=== PATIENT | male | born 1970 | race Caucasian/White ===

== ENCOUNTER 2016-07-10 16:33 | Inpatient (IN) | payer OTHER ==
[2016-07-10] MEDS ORDERED: SODIUM CHLORIDE 0.9% 1,000 ML IV STA (17:16)
[2016-07-10] MEDS ORDERED: THIAMINE 100 MG/ML 2 ML VIAL IVP STA (17:21)
--- NOTE | 2016-07-10 17:24 | ED ---
GI Bleed HPI - General Chief complaint: GI Bleed Stated complaint: GI bleed Time Seen by Provider: 07/10/16 17:06 Source: patient Mode of arrival: EMS Limitations: no limitations - History of Present Illness Initial comments: 46-year-old male transferred from [facility] for GI bleeding patient has a history of heavy alcohol use 2 pints of vodka a day 3 weeks ago told had liver disease. Apparently his hemoglobin dropped to 7 from about 11. Denies previous GI bleed and they transferred him to [facility] he is received 1 unit of blood at [facility] and 1 in transit his shaky has low-grade temperature no severe bodyaches or change in urine or his blood pressure has been stable. No here clear history of taking NSAIDs. - Related Data Home Medications Medication Instructions Recorded Confirmed Propranolol HCl 20 mg PO BID 06/30/15 07/10/16 Folic Acid 1 mg PO DAILY 09/12/15 07/10/16 Sucralfate [Carafate] 1 gm PO BID 09/12/15 07/10/16 ALPRAZolam [Xanax] 0.5 mg PO TID 07/10/16 07/10/16 Multivitamins, Thera [Multivitamin] 1 tab PO DAILY@1200 07/10/16 07/10/16 levETIRAcetam [Keppra] 1,000 mg PO DAILY 07/10/16 07/10/16 Previous Rx's Medication Instructions Recorded Omeprazole 40 mg PO AC-BRKFST #30 capsule. 09/14/15 Divalproex [Depakote] 500 mg PO QID #120 tablet. 01/05/16 Magnesium Chloride [Slow-Mag] 128 mg PO BID #120 tablet.er 01/05/16 Thiamine [Vitamin B-1] 100 mg PO DAILY@1200 #30 tab 01/05/16 Allergies Allergy/AdvReac Type Severity Reaction Status Date / Time No Known Allergies Allergy Verified 07/10/16 17:05 Review of Systems ROS Statement: Those systems with pertinent positive or pertinent negative responses have been documented in the HPI. ROS Other: All systems not noted in ROS Statement are negative. Constitutional: Denies: fever, chills ENT: Denies: ear pain, throat pain Respiratory: Reports: cough Cardiovascular: Denies: chest pain Endocrine: Denies: fatigue Gastrointestinal: Reports: vomiting, hematemesis, melena. Denies: abdominal pain Genitourinary: Reports: frequency Skin: Reports: rash Neurological: Reports: headache Psychiatric: Reports: anxiety. Denies: depression Hematological/Lymphatic: Reports: easy bleeding, easy bruising Past Medical History Past Medical History: GERD/Reflux, Hypertension, Liver Disease, Memory Impairment, Seizure Disorder Additional Past Medical History / Comment(s): ULCERS/GASTRITIS, ETOH RELATED DEMENTIA, PANCREATITIS. patient states he has to crush all pills because of a "small esophogus" History of Any Multi-Drug Resistant Organisms: C-DIFF Date of last positivie culture/infection: 07/02/2015 MDRO Source:: stool Past Surgical History: Adenoidectomy, Tonsillectomy Past Anesthesia/Blood Transfusion Reactions: No Reported Reaction Past Psychological History: Bipolar Smoking Status: Never smoker Past Alcohol Use History: Daily, Heavy Additional Past Alcohol Use History / Comment(s): Pt states he drinks a pint of liquor daily Past Drug Use History: None Reported - Past Family History Father Family Medical History: Diabetes Mellitus Mother Family Medical History: Diabetes Mellitus, Deep Vein Thrombosis (DVT), Hypertension Sister(s) Family Medical History: Diabetes Mellitus Brother(s) Family Medical History: Diabetes Mellitus General Exam Limitations: no limitations General appearance: alert, in no apparent distress Head exam: Present: atraumatic Eye exam: Present: PERRL, EOMI ENT exam: Present: normal oropharynx, mucous membranes moist Neck exam: Absent: tenderness Respiratory exam: Present: normal lung sounds bilaterally. Absent: respiratory distress Cardiovascular Exam: Present: tachycardia, normal heart sounds GI/Abdominal exam: Present: soft. Absent: distended, tenderness, guarding, rebound Neurological exam: Present: alert, CN II-XII intact Psychiatric exam: Present: anxious Skin exam: Present: warm Course Vital Signs 07/10/16 07/10/16 07/10/16 17:00 17:44 18:46 Temperature 100.3 F H 100.5 F H Pulse Rate 141 H 133 H 129 H Respiratory 22 20 22 Rate Blood Pressure 161/81 152/78 147/74 O2 Sat by Pulse 100 98 100 Oximetry Medical Decision Making - Medical Decision Making Spoke with Dr. Dr. Julisa Albarado, Dr. Fine, and Dr. Marie Muñoz, admit to ICU - EKG Data -: EKG Interpreted by Me 07/10/16 17:25 EKG 07/10/2016 1642 ventricular rate 1 39 bpm, OH interval 126 ms, QRS duration 78 ms QT interval 312 ms sinus tachycardia with fusion complexes nonspecific ST- T changes Critical Care Time Critical Care Time: Yes (45 minutes) Disposition Clinical Impression: Gastrointestinal hemorrhage, Alcohol withdrawal Disposition: ADMITTED IP TO THIS HOSP Condition: Critical Time of Disposition: 18:52
[2016-07-10] MEDS ORDERED: LORazepam 2 MG/ML SYRINGE IV PRN ×2 (17:25)
[2016-07-10] MEDS ORDERED: PANTOPRAZOLE 40 MG/10 ML VIAL IVP STA (17:26)
--- NOTE | 2016-07-10 18:13 | P.GSCN ---
History of Present Illness Consult date: 07/10/16 Reason for Consult: GI bleed History of present illness: Patient is a 46-year-old white male who was transferred here from [place]. He has a history of heavy alcohol use drinking several pints of liquor over the past several days. He began vomiting blood and was admitted to [facility]. Hemoglobin dropped from 11-7 recently he underwent a transfusion at [place] and another in transit here. Patient denies blood per rectum. Patient denies abdominal pain. Patient states he has not had anything like this in the past. Patient was told several weeks ago he had liver disease. Review of Systems - Constitutional Reports as per HPI - Cardiovascular Reports as per HPI - Respiratory Reports as per HPI - Gastrointestinal Gastrointestinal Comment(s): Heavy alcohol use, history of liver disease Reports as per HPI, Reports nausea, Reports vomiting - Musculoskeletal Reports as per HPI Past Medical History Past Medical History: GERD/Reflux, Hypertension, Liver Disease, Memory Impairment, Seizure Disorder Additional Past Medical History / Comment(s): ULCERS/GASTRITIS, ETOH RELATED DEMENTIA, PANCREATITIS. patient states he has to crush all pills because of a "small esophogus" History of Any Multi-Drug Resistant Organisms: C-DIFF Year Discovered:: 07/02/2015 MDRO Source:: stool Past Surgical History: Adenoidectomy, Tonsillectomy Past Anesthesia/Blood Transfusion Reactions: No Reported Reaction Past Psychological History: Bipolar Smoking Status: Never smoker Past Alcohol Use History: Daily, Heavy Additional Past Alcohol Use History / Comment(s): Pt states he drinks a pint of liquor daily Past Drug Use History: None Reported - Past Family History Father Family Medical History: Diabetes Mellitus Mother Family Medical History: Diabetes Mellitus, Deep Vein Thrombosis (DVT), Hypertension Sister(s) Family Medical History: Diabetes Mellitus Brother(s) Family Medical History: Diabetes Mellitus Medications and Allergies Home Medications Medication Instructions Recorded Confirmed Type Propranolol HCl 20 mg PO BID 06/30/15 07/10/16 History Folic Acid 1 mg PO DAILY 09/12/15 07/10/16 History Sucralfate [Carafate] 1 gm PO BID 09/12/15 07/10/16 History ALPRAZolam [Xanax] 0.5 mg PO TID 07/10/16 07/10/16 History Multivitamins, Thera [Multivitamin] 1 tab PO DAILY@1200 07/10/16 07/10/16 History levETIRAcetam [Keppra] 1,000 mg PO DAILY 07/10/16 07/10/16 History Allergies Allergy/AdvReac Type Severity Reaction Status Date / Time No Known Allergies Allergy Verified 07/10/16 17:05 Surgical - Exam Vital Signs Temp Pulse Resp BP Pulse Ox 100.3 F H 141 H 22 161/81 100 07/10/16 17:00 07/10/16 17:00 07/10/16 17:00 07/10/16 17:00 07/10/16 17:00 - General well developed, moderate distress - Eyes normal ocular movement - ENT Dry mucosa normal pinna, normal nares - Neck no masses, trachea midline, no lymphadectomy - Respiratory normal expansion, normal respiratory effort, clear to auscultation - Cardiovascular Rhythm: regular Heart Sounds: normal: S1, S2 - Abdomen Abdomen: soft, non tender - Rectum Rectum: normal sphincter tone, no tenderness, no bleeding - Integumentary no rash - Psychiatric oriented to person, oriented to place Assessment and Plan Plan: Impression/plan: 1. 46-year-old alcoholic patient with GI bleed 2. History of anxiety 3. Anemia related to GI bleed Plan: 1. GI consultation probable esophageal varices 2. Admission to intensive care unit 3. This time patient does not have an acute surgical abdomen 4. Serial CBCs
[2016-07-10] MEDS ORDERED: ACETAMINOPHEN IV (For NPO) 1,000 MG in EMPTY BAG 1 BAG IVPB STA (18:43)
[2016-07-10] MEDS ORDERED: NALOXONE 0.4 MG/ML 1 ML VIAL IV PRN (18:54)
[2016-07-10 19:22] LABS: Anisocytosis Slight; Basophils % (A) 0 %; CH 29.1; CHCM 31.7; Eosinophils % (A) 0 %; HCT 30.5 % (39.0-53.0); HDW 3.88; HGB 9.6 gm/dL (13.0-17.5); Hypochromasia Marked; Luc # (Auto) 0.17; Luc % (Auto) 2; Lymphocytes # (A) 0.6 k/uL (1.0-4.8); Lymphocytes % (A) 7 %; MCHC 31.5 g/dL (31.0-37.0); MCV 91.9 fL (80.0-100.0); Mean Platelet Volume 7.6; Monocytes # (A) 0.4 k/uL (0-1.0); Monocytes % (A) 5 %; Neutrophils # (A) 7.4 k/uL (1.3-7.7); Neutrophils % (A) 86 %; Poikilocytosis Slight; RBC 3.32 m/uL (4.30-5.90); RDW 18.7 % (11.5-15.5); WBC 8.5 k/uL (3.8-10.6); WBC (Perox) 9.32
[2016-07-10 19:31] LABS: ALT 27 U/L (21-72); AST 85 U/L (17-59); Alkaline Phosphatase 168 U/L (38-126); Anion Gap 16 mmol/L; Blood Urea Nitrogen 18 mg/dL (9-20); Calcium 6.8 mg/dL (8.4-10.2); Carbon Dioxide 21 mmol/L (22-30); Chloride 107 mmol/L (98-107); Creatine Kinase 1057 U/L (55-170); Glucose 95 mg/dL (74-99); Magnesium 1.7 mg/dL (1.6-2.3); Non-African American GFR(MDRD) 50 (>60 ml/min/1.73 sqM); Potassium 4.3 mmol/L (3.5-5.1); Sodium 144 mmol/L (137-145); Total Bilirubin 1.1 mg/dL (0.2-1.3); Total Protein 5.6 g/dL (6.3-8.2)
[2016-07-10 19:33] LABS: INR 1.2 (<1.1); Partial Thromboplastin Time 26.2 sec (22.0-30.0); Prothrombin Time 11.8 sec (9.0-12.0)
[2016-07-10 19:43] LABS: Troponin I <0.012 ng/mL (0.000-0.034)
[2016-07-10] MEDS: SODIUM CHLORIDE 0.9% 1,000 ML IV SCH (20:30)
[2016-07-10 20:32] LABS: Glucose,Whole Blood 84 mg/dL (75-99)
--- NOTE | 2016-07-10 21:09 | XR ---
EXAMINATION TYPE: XR chest 1V DATE OF EXAM: 07/10/2016 9:05 PM COMPARISON: 10/13/2015 HISTORY: 46-year-old male with aspiration TECHNIQUE: Single frontal view of the chest is obtained. FINDINGS: Heart is normal size. Aorta and pulmonary vasculature within normal limits. Left subclavian CVC tip i n the upper right atrium. No consolidation or pleural effusion. IMPRESSION: No acute cardiopulmonary process.
[2016-07-10] MEDS: levETIRAcetam IV 500 MG in SODIUM CHLORIDE 0.9% 100 ML IVPB SCH (21:17)
[2016-07-10] MEDS ORDERED: Magnesium Replacement Protocol 1 EACH MISC MISCELLANE PRN (21:55)
[2016-07-10] MEDS: METOPROLOL TARTRATE 25 MG TAB PO SCH (22:18)
[2016-07-10] MEDS: MAGNESIUM SULFATE-D5W PMX 1 GM in DEXTROSE/WATER 1 100ML.BAG IVPB SCH ×2 (22:19→23:49)
[2016-07-10] MEDS: DIAZEPAM 5 MG TAB PO SCH (22:25)
[2016-07-10 22:41] VITALS: BMI 21.9
[2016-07-11 03:58] LABS: ALT 32 U/L (21-72); AST 71 U/L (17-59); Alkaline Phosphatase 168 U/L (38-126); Anion Gap 10 mmol/L; Blood Urea Nitrogen 15 mg/dL (9-20); Calcium 6.9 mg/dL (8.4-10.2); Carbon Dioxide 26 mmol/L (22-30); Chloride 107 mmol/L (98-107); Creatine Kinase 822 U/L (55-170); Glucose 87 mg/dL (74-99); Magnesium 2.4 mg/dL (1.6-2.3); Non-African American GFR(MDRD) >60 (>60 ml/min/1.73 sqM); Phosphorous 2.6 mg/dL (2.5-4.5); Potassium 4.2 mmol/L (3.5-5.1); Sodium 143 mmol/L (137-145); Total Bilirubin 0.8 mg/dL (0.2-1.3); Total Protein 5.5 g/dL (6.3-8.2)
[2016-07-11] MEDS: SODIUM CHLORIDE 0.9% 1,000 ML IV SCH ×3 (04:12→19:38)
[2016-07-11 04:43] LABS: Anisocytosis Slight; Basophils % (A) 0 %; CH 29.2; CHCM 32.1; Eosinophils # (A) 0.1 k/uL (0-0.7); Eosinophils % (A) 1 %; HCT 29.9 % (39.0-53.0); HDW 4.13; HGB 9.4 gm/dL (13.0-17.5); Hypochromasia Moderate; Luc # (Auto) 0.16; Luc % (Auto) 2; Lymphocytes # (A) 0.9 k/uL (1.0-4.8); Lymphocytes % (A) 14 %; MCH 28.6 pg (25.0-35.0); MCHC 31.3 g/dL (31.0-37.0); MCV 91.4 fL (80.0-100.0); Mean Platelet Volume 9.1; Monocytes # (A) 0.3 k/uL (0-1.0); Monocytes % (A) 4 %; Neutrophils # (A) 5.5 k/uL (1.3-7.7); Neutrophils % (A) 79 %; Poikilocytosis Moderate; RBC 3.27 m/uL (4.30-5.90); RDW 19.2 % (11.5-15.5); WBC 6.9 k/uL (3.8-10.6); WBC (Perox) 6.57
[2016-07-11] MEDS ORDERED: SUCRALFATE 1 GM TAB PO SCH (07:30)
[2016-07-11] MEDS: DIAZEPAM 5 MG TAB PO SCH ×3 (08:23→21:26)
[2016-07-11] MEDS: levETIRAcetam IV 500 MG in SODIUM CHLORIDE 0.9% 100 ML IVPB SCH ×2 (08:23→21:26)
[2016-07-11] MEDS: PANTOPRAZOLE 40 MG/10 ML VIAL IV SCH (08:23)
[2016-07-11] MEDS: METOPROLOL TARTRATE 25 MG TAB PO SCH (08:23)
[2016-07-11] MEDS: THIAMINE 100 MG/ML 2 ML VIAL IVP SCH (08:23)
[2016-07-11] MEDS: DIVALPROEX 500 MG TABLET.DR PO SCH ×4 (08:23→21:26)
--- NOTE | 2016-07-11 08:47 | P.PN ---
Subjective Patient is a 46-year-old alcoholic admitted with upper GI bleed. He has had no further vomiting since admission. Hemoglobin is stable at 9.4. Objective - Vital Signs Vital signs: Vital Signs Temp 98.2 F 07/11/16 04:00 Pulse 96 07/11/16 08:00 Resp 20 07/11/16 08:00 BP 142/74 07/11/16 08:00 Pulse Ox 99 07/11/16 08:00 Intake & Output 07/10/16 07/11/16 07/11/16 18:59 06:59 18:59 Intake Total 1175 350 Output Total 610 180 Balance 565 170 Weight 61.8 kg Intake: Intake, IV Titration 1175 350 Amount Magnesium Sulfate-D5w Pmx 200 1 gm In Dextrose/Water 1 100ml.bag @ 100 mls/hr IVPB Q1H RADHA Rx#: [id number] Sodium Chloride 0.9% 1, 875 250 000 ml @ 125 mls/hr IV . Q8H RADHA Rx#:[id number] levETIRAcetam IV 500 mg 100 100 In Sodium Chloride 0.9% 100 ml @ 400 mls/hr IVPB BID RADHA Rx#:[id number] Output: Urine 610 180 Other: Voiding Method Urinal - Constitutional General appearance: Present: average body habitus, disheveled - Respiratory Details: Decreased breath sounds at the bases - Cardiovascular Rhythm: regular Heart sounds: normal: S1, S2 - Gastrointestinal Gastrointestinal Comment(s): Mild tender midepigastric and right upper quadrant areas General gastrointestinal: Present: normal bowel sounds, soft - Labs CBC & Chem 7: 07/11/16 04:30 07/11/16 03:35 Labs: Abnormal Lab Results - Last 24 Hours (Table) 07/10/16 07/10/16 07/10/16 Range/Units 19:05 19:05 19:05 RBC 3.32 L (4.30-5.90) m/uL Hgb 9.6 L (13.0-17.5) gm/dL Hct 30.5 L (39.0-53.0) % RDW 18.7 H (11.5-15.5) % Plt Count 93 L (150-450) k/uL Lymphocytes # 0.6 L (1.0-4.8) k/uL Carbon Dioxide 21 L (22-30) mmol/L Creatinine 1.50 H (0.66-1.25) mg/dL Calcium 6.8 L (8.4-10.2) mg/dL Magnesium (1.6-2.3) mg/dL AST 85 H (17-59) U/L Alkaline Phosphatase 168 H (38-126) U/L Creatine Kinase (55-170) U/L Total Creatine Kinase 1057 H (55-170) U/L Total Protein 5.6 L (6.3-8.2) g/dL Albumin 3.0 L (3.5-5.0) g/dL 07/11/16 07/11/16 Range/Units 03:35 04:30 RBC 3.27 L (4.30-5.90) m/uL Hgb 9.4 L (13.0-17.5) gm/dL Hct 29.9 L (39.0-53.0) % RDW 19.2 H (11.5-15.5) % Plt Count 83 L (150-450) k/uL Lymphocytes # 0.9 L (1.0-4.8) k/uL Carbon Dioxide (22-30) mmol/L Creatinine (0.66-1.25) mg/dL Calcium 6.9 L (8.4-10.2) mg/dL Magnesium 2.4 H (1.6-2.3) mg/dL AST 71 H (17-59) U/L Alkaline Phosphatase 168 H (38-126) U/L Creatine Kinase 822 H (55-170) U/L Total Creatine Kinase (55-170) U/L Total Protein 5.5 L (6.3-8.2) g/dL Albumin 2.8 L (3.5-5.0) g/dL Assessment and Plan Plan: Impression/plan: 1. 46-year-old alcoholic patient with GI bleed 2. History of anxiety 3. Anemia related to GI bleed Plan: 1. GI consultation probable esophageal varices 2. Admission to intensive care unit 3. This time patient does not have an acute surgical abdomen 4. Serial CBCs 5. Possible EGD as per GI 6. At this time the patient does not have an acute surgical problem
--- NOTE | 2016-07-11 10:55 | CONS ---
DATE OF CONSULTATION: REASON FOR CONSULTATION: Acute upper gastrointestinal bleed. Patient is a 46-year-old white male transferred from [facility] with a history of heavy alcoholism, transferred from [facility] because of acute upper gastrointestinal bleed. Apparently he had multiple episodes of coffee-ground emesis at home at least five to 6 times and then went to the emergency room at [facility]. He was noted to have a hemoglobin of 7.4. He was transfused 1 unit and transferred to ICU at [facility]. He received another unit of blood and this morning hemoglobin is 9.1 g/dL. Since being in the hospital, he did not have any further episodes of bleeding. He does complain of some abdominal pain. He reports no nausea, vomiting. He did have an upper endoscopy as well as colonoscopy by me in June 2015 that revealed distal esophageal stricture, upper endoscopy revealed distal esophageal stricture with severe reflux esophagitis and colonoscopy was within normal limits. Patient says that he has been taking Prilosec at home on a regular basis. He denies any heartburn. His past medical history significant for heavy alcohol abuse, history of seizure disorder, anxiety, depression, alcoholism, heavy alcohol abuse. Medications at home include: 1. Vitamin B1. 2. Slow Mag. 3. Depakote. 4. Prilosec. 5. Carafate. 6. Xanax. 7. Multivitamin. 8. Keppra. 9. Propranolol. 10. Folic acid. PAST SURGICAL HISTORY: EGD, colonoscopy in June 2015, history of tonsillectomy and adenoidectomy. ALLERGIES: None. SOCIAL HISTORY: Heavy alcohol use. He drinks about a pint a day for the last 30 years. FAMILY HISTORY: Father has diabetes mellitus, mother has diabetes mellitus and DVT. REVIEW OF SYSTEMS: CARDIOPULMONARY: No chest pain or shortness of breath. GENITOURINARY: No dysuria or hematuria. MUSCULOSKELETAL: Unremarkable. SKIN: Unremarkable. ENDOCRINE: Unremarkable. PSYCHIATRIC: History of anxiety, depression. NEUROLOGY: Unremarkable. ENT: Vision unremarkable. CONSTITUTIONAL: No recent weight loss. No fevers, chills or night sweats. On physical examination, he appears comfortable in no apparent distress. Vitals as are stable. Blood pressure is 146/86, pulse rate 99, temperature 98. HEENT: Unremarkable. Conjunctivae pink. Sclerae anicteric. Oral cavity, no lesions. NECK: No JVD or lymph node enlargement. Chest was clear to auscultation. HEART: Regular rate and rhythm. ABDOMEN: Soft. Bowel sounds are positive. No organomegaly. EXTREMITIES: No pedal edema. SKIN: No rashes. NEURO: Alert and oriented x3. No focal deficits. Labs done at the time of this admission to hospital, hemoglobin was initially was 7.4 and subsequently after 2 units of blood it is 9.4 this morning, BUN is 26, creatinine 10, alkaline phosphatase is 168, AST 71. ALT 32, T-bili 0.8. IMPRESSION: 1. Acute upper gastrointestinal bleeding. Last EGD and colonoscopy in June 2015 showed severe reflux esophagitis. The patient since has been on omeprazole 20 mg twice daily, now presents with recurrent upper gastrointestinal bleed. 2. History of heavy alcohol abuse currently drinking a pint a day. 3. Alcoholic liver disease with underlying cirrhosis of the liver. 4. Thrombocytopenia secondary to underlying cirrhosis of the liver. RECOMMENDATIONS: 1. Continue Protonix 40 mg twice daily. 2. Start on clear liquid diet. 3. Will proceed with an upper endoscopy tomorrow. Discussed with the patient the risks, benefits and complications of procedure and he is agreeable to it. Thank you for this consultation.
[2016-07-11 12:22] LABS: Amylase 58 U/L (30-110)
[2016-07-11] MEDS: MORPHINE SULFATE 2 MG/ML SYRINGE IVP PRN (12:29)
[2016-07-11] MEDS: LORazepam 2 MG/ML SYRINGE IV PRN ×2 (12:29→21:25)
--- NOTE | 2016-07-11 17:26 | HP ---
DATE OF ADMISSION: 07/10/2016 PRESENTING COMPLAINT: GI bleed. HISTORY OF PRESENTING COMPLAINT: A 46-year-old patient who follows with Dr. Perez transferred from [facility] [place]. Patient has history of excessive alcohol intake including at least a pint of whiskey a day. Lives with his parents, unemployed. Patient presented with repeated bouts of coffee-ground emesis. The patient has dropped his hemoglobin had [place] and required a unit of blood there and got a second unit of blood here. Patient has known alcoholic hepatitis. Patient is tired. Also has history of bipolar, not employed. No further bleeding since being admitted to the ICU. REVIEW OF SYSTEMS: CONSTITUTIONAL: Tired. HEENT: None. RESPIRATORY: None. CARDIOVASCULAR: None. GASTROINTESTINAL: Abdominal pain, coffee-ground emesis. GENITOURINARY: None. MUSCULOSKELETAL: None. DERMATOLOGIC: None. HEMATOLOGIC: None. LYMPHATICS: None. PSYCHIATRY: Anxious. NEUROLOGICAL: None. Past history of esophageal stricture, severe esophagitis, alcoholic hepatitis, bipolar. PAST SURGICAL HISTORY: Adenoidectomy, tonsillectomy. SOCIAL HISTORY: He drinks a pint of liquor daily. No smoking. Lives with his parents. Not employed. FAMILY HISTORY: Diabetes. HOME MEDICATIONS: 1. Keppra 1000 mg p.o. daily. 2. Thiamine 100 mg p.o. daily, 3. Carafate 1 gram p.o. b.i.d. 4. Propranolol 20 mg p.o. b.i.d. 5. Omeprazole 40 mg with breakfast. 6. Multivitamin 1 tablet p.o. daily. 7. Slow-Mag 128 mg p.o. b.i.d. 8. Folic acid 1 mg p.o. daily. 9. Depakote 500 mg p.o. q.i.d. 10. Xanax 0.5 p.o. t.i.d. ALLERGIES: None. On examination vital signs on presentation: Temperature 100.5, pulse 133, respirations 20, blood pressure 152/78, pulse ox 98% on 2 liters. GENERAL APPEARANCE: Average build, sitting in bed, tired appearing. EYES: Pupils equal. Conjunctivae normal. HEENT: Oral cavity normal. NECK: JVD not raised. Mass not palpable. RESPIRATORY: Effort normal. LUNGS: Clear. CARDIOVASCULAR: First and second sounds normal. No edema. ABDOMEN: Soft, nontender. Liver and spleen not palpable. Mild epigastric tenderness. No guarding or rigidity. LYMPHATIC: No lymph nodes palpable in the neck or axillae. PSYCHIATRY: Somewhat tired appearing. Mood and affect slightly low. INVESTIGATIONS: White count 8.5, hemoglobin 9.6; repeat 9.4, platelets 93, potassium 4.3, BUN 1.5; repeat is 1.1. AST 85, ALT 27. CPK 1057. ASSESSMENT: 1. Acute gastrointestinal bleed in a patient with chronic alcoholism likely a bleed from peptic ulcer. 2. Acute renal failure, probably prerenal with creatinine 1.5 on presentation, did drop down to 1.10 with dehydration. 3. Alcoholic hepatitis with elevated AST. 4. Thrombocytopenia from chronic alcoholism. 5. Acute blood loss anemia from GI bleed. 6. Chronic alcohol dependence. 7. Acute rhabdomyolysis. PLAN: For DT prophylaxis, will put the patient on Valium 2.5/3 times a day. Patient getting IV fluids and already received 2 units of blood. Patient is put on IV PPIs and other home medications are resumed. GI and critical care was consulted. Patient counseled against alcohol. Watch for DTs.
--- NOTE | 2016-07-11 18:47 | P.CNPUL ---
History of Present Illness Consult date: 07/11/16 Chief complaint: Abdominal pain, upper GI bleed History of present illness: 46-year-old male patient, chronically alcoholic, who has had previous episodes of upper GI bleed and a colonoscopy that was done approximately a year ago had shown severe reflexes situated and a stricture in the distal esophagus. The patient has had also previous colonoscopy approximately year ago that was essentially within normal limits. The patient came into the hospital yesterday because of several episodes of coffee-ground emesis. He was initially taken to [facility] and following that he was noted to have a hemoglobin of 7.4 given a unit of packed RBC and he was brought into [place]. Current hemoglobin is at 9.1. The patient denies having any melanotic stool. He has some chronic abdominal pain. No nausea. No vomiting. No signs of the game treatments. Hemodynamically stable at this point. Review of Systems Review of system was done and the positive findings are almost above in history of present illness Past Medical History Past Medical History: GERD/Reflux, Hypertension, Liver Disease, Memory Impairment, Seizure Disorder Additional Past Medical History / Comment(s): Alcoholism, alcoholic pancreatitis , alcoholic seizures, as esophageal stricture and reflux esophagitis, alcoholic dementia, depression History of Any Multi-Drug Resistant Organisms: C-DIFF Date of last positivie culture/infection: 07/02/2015 MDRO Source:: stool Past Surgical History: Adenoidectomy, Tonsillectomy Past Anesthesia/Blood Transfusion Reactions: No Reported Reaction Past Psychological History: Bipolar Smoking Status: Unknown if ever smoked Past Alcohol Use History: Daily, Heavy Additional Past Alcohol Use History / Comment(s): Pt states he drinks a pint of liquor daily Past Drug Use History: None Reported - Past Family History Father Family Medical History: Diabetes Mellitus Mother Family Medical History: Diabetes Mellitus, Deep Vein Thrombosis (DVT), Hypertension Sister(s) Family Medical History: Diabetes Mellitus Brother(s) Family Medical History: Diabetes Mellitus Medications and Allergies Home Medications Medication Instructions Recorded Confirmed Type Propranolol HCl 20 mg PO BID 06/30/15 07/10/16 History Folic Acid 1 mg PO DAILY 09/12/15 07/10/16 History Sucralfate [Carafate] 1 gm PO BID 09/12/15 07/10/16 History ALPRAZolam [Xanax] 0.5 mg PO TID 07/10/16 07/10/16 History Multivitamins, Thera [Multivitamin] 1 tab PO DAILY@1200 07/10/16 07/10/16 History levETIRAcetam [Keppra] 1,000 mg PO DAILY 07/10/16 07/10/16 History Allergies Allergy/AdvReac Type Severity Reaction Status Date / Time No Known Allergies Allergy Verified 07/10/16 17:05 Physical Exam Vitals: Vital Signs Temp Pulse Pulse Pulse Resp BP BP 07/11/16 16:47 96.4 F L 95 21 120/78 07/11/16 16:00 94 23 139/85 07/11/16 15:00 95 25 H 146/81 07/11/16 14:00 94 22 154/88 07/11/16 13:00 94 21 146/83 07/11/16 12:30 92 15 146/83 07/11/16 12:00 98 F 83 22 146/83 07/11/16 11:00 83 20 140/87 07/11/16 10:00 79 22 124/82 07/11/16 09:00 100 20 143/88 07/11/16 08:30 103 H 17 154/81 07/11/16 08:00 96 20 142/74 07/11/16 07:00 99 9 L 146/85 07/11/16 06:30 89 18 137/89 07/11/16 06:00 92 16 148/91 07/11/16 05:30 85 18 151/76 07/11/16 05:00 88 13 142/78 07/11/16 04:30 96 15 153/90 07/11/16 04:00 98.2 F 96 12 143/80 07/11/16 03:30 91 21 128/76 07/11/16 03:00 90 26 H 148/87 07/11/16 02:30 95 15 138/73 07/11/16 02:00 90 22 138/74 07/11/16 01:30 88 19 127/76 07/11/16 01:00 89 13 125/79 07/11/16 00:30 88 27 H 129/83 07/11/16 00:00 99.4 F 93 9 L 126/77 07/10/16 23:41 89 20 91/67 07/10/16 23:30 92 21 119/81 07/10/16 23:00 104 H 19 124/72 07/10/16 22:30 113 H 22 149/76 07/10/16 22:00 99.9 F H 112 H 109 H 22 145/64 149/76 07/10/16 21:30 105 H 17 108/75 07/10/16 21:00 122 H 22 145/78 07/10/16 20:45 122 H 20 165/82 07/10/16 20:30 127 H 19 148/76 07/10/16 20:18 143 H 22 07/10/16 20:06 99.1 F 126 H 20 139/68 Pulse Ox 07/11/16 16:47 99 07/11/16 16:00 98 07/11/16 15:00 97 07/11/16 14:00 98 07/11/16 13:00 96 07/11/16 12:30 98 07/11/16 12:00 07/11/16 11:00 96 07/11/16 10:00 100 07/11/16 09:00 97 07/11/16 08:30 96 07/11/16 08:00 99 07/11/16 07:00 98 07/11/16 06:30 99 07/11/16 06:00 100 07/11/16 05:30 100 07/11/16 05:00 07/11/16 04:30 97 07/11/16 04:00 07/11/16 03:30 100 07/11/16 03:00 100 07/11/16 02:30 99 07/11/16 02:00 100 07/11/16 01:30 100 07/11/16 01:00 100 07/11/16 00:30 100 07/11/16 00:00 100 07/10/16 23:41 07/10/16 23:30 100 07/10/16 23:00 100 07/10/16 22:30 100 07/10/16 22:00 98 07/10/16 21:30 07/10/16 21:00 97 07/10/16 20:45 100 07/10/16 20:30 99 07/10/16 20:18 07/10/16 20:06 99 Intake and Output 07/11/16 07/11/16 07/11/16 06:59 14:59 22:59 Intake Total 950 1425 250 Output Total 400 505 Balance 550 920 250 Intake: Intake, IV Titration 950 1100 250 Amount Magnesium Sulfate-D5w Pmx 200 1 gm In Dextrose/Water 1 100ml.bag @ 100 mls/hr IVPB Q1H [facility] Rx#: [id number] Sodium Chloride 0.9% 1, 750 1000 250 000 ml @ 125 mls/hr IV . Q8H [facility] Rx#:[id number] levETIRAcetam IV 500 mg 100 In Sodium Chloride 0.9% 100 ml @ 400 mls/hr IVPB BID [facility] Rx#:[id number] Oral 325 Output: Urine 400 505 Other: Voiding Method Urinal Urinal Weight 61.8 kg Head exam was generally normal. There was no scleral icterus or corneal arcus. Mucous membranes were moist.Neck was supple and without jugular venous distension, thyromegaly, or carotid bruits. Carotids were easily palpable bilaterally. There was no adenopathy.Lungs were clear to auscultation and percussion, and with normal diaphragmatic excursion. No wheezes or rales were noted. Cardiac exam revealed the PMI to be normally situated and sized. The rhythm was regular and no extrasystoles were noted during several minutes of auscultation. The first and second heart sounds were normal and physiologic splitting of the second heart sound was noted. There were no murmurs, rubs, clicks, or gallops. Abdomen is slightly tender in the epigastric area. No rebound tenderness. No guarding. No ascites.Examination of the extremities revealed easily palpable radial, femoral and pedal pulses. There was no cyanosis , clubbing or edema. Results - Laboratory Findings CBC and BMP: 07/11/16 04:30 07/11/16 03:35 PT/INR, D-dimer PT 11.8 sec (9.0-12.0) 07/10/16 19:05 INR 1.2 (<1.1) 07/10/16 19:05 Abnormal lab findings: Abnormal Labs 07/10/16 07/10/16 07/10/16 19:05 19:05 19:05 RBC 3.32 L Hgb 9.6 L Hct 30.5 L RDW 18.7 H Plt Count 93 L Lymphocytes # 0.6 L Carbon Dioxide 21 L Creatinine 1.50 H Calcium 6.8 L Magnesium AST 85 H Alkaline Phosphatase 168 H Creatine Kinase Total Creatine Kinase 1057 H Total Protein 5.6 L Albumin 3.0 L 07/11/16 07/11/16 03:35 04:30 RBC 3.27 L Hgb 9.4 L Hct 29.9 L RDW 19.2 H Plt Count 83 L Lymphocytes # 0.9 L Carbon Dioxide Creatinine Calcium 6.9 L Magnesium 2.4 H AST 71 H Alkaline Phosphatase 168 H Creatine Kinase 822 H Total Creatine Kinase Total Protein 5.5 L Albumin 2.8 L - Diagnostic Findings Chest x-ray: image reviewed Assessment and Plan Plan: Assessment 1 upper GI bleed, rule out secondary to reflux esophagitis, rule out alcoholic gastritis. Doubt esophageal variceal bleeding at this point 2 chronic alcoholism 3 alcoholic pancreatitis. The patient is currently experiencing abdominal pain and amylase lipase need to be checked 4 alcoholic seizures 5 alcoholic thrombocytopenia 6 depression 7 anemia, probably secondary to GI bleeding. Hemoglobin is at 9.4 8 mild rhabdomyolysis Plan Continue IV fluids. IV Protonix 40 mg every 12 hours. Start the patient on some clear liquid diet. Watch for any signs of delirium tremens. Thiamine and folate. Check amylase and lipase. Monitor the CPK values. GI consultation. We'll continue to follow.
[2016-07-11] MEDS: PROPRANOLOL 20 MG TAB PO SCH (21:26)
[2016-07-11 22:34] LABS: Anisocytosis Slight; CHCM 31.2; HCT 30.2 % (39.0-53.0); HDW 4.05; HGB 9.5 gm/dL (13.0-17.5); Hypochromasia Marked; MCH 29.2 pg (25.0-35.0); MCHC 31.3 g/dL (31.0-37.0); MCV 93.2 fL (80.0-100.0); Mean Platelet Volume 8.8; Poikilocytosis Moderate; RBC 3.24 m/uL (4.30-5.90); RDW 18.9 % (11.5-15.5); WBC 6.4 k/uL (3.8-10.6)
[2016-07-12] MEDS: MORPHINE SULFATE 2 MG/ML SYRINGE IVP PRN (02:41)
[2016-07-12] MEDS: SODIUM CHLORIDE 0.9% 1,000 ML IV SCH ×3 (02:45→11:48)
[2016-07-12] MEDS: LORazepam 2 MG/ML SYRINGE IV PRN (03:46)
[2016-07-12] MEDS: PROPRANOLOL 20 MG TAB PO SCH ×2 (08:38→21:32)
[2016-07-12] MEDS: DIAZEPAM 5 MG TAB PO SCH ×3 (08:38→21:32)
[2016-07-12] MEDS: DIVALPROEX 500 MG TABLET.DR PO SCH ×4 (08:38→21:32)
[2016-07-12] MEDS: THIAMINE 100 MG/ML 2 ML VIAL IVP SCH (08:56)
[2016-07-12] MEDS: PANTOPRAZOLE 40 MG/10 ML VIAL IV SCH (08:56)
[2016-07-12] MEDS: levETIRAcetam IV 500 MG in SODIUM CHLORIDE 0.9% 100 ML IVPB SCH ×2 (09:10→21:29)
[2016-07-12] MEDS ORDERED: IV FLUID CONTINUATION 1,000 ML IV ONE ×2 (10:15)
--- NOTE | 2016-07-12 10:30 | P.PN ---
Subjective 46-year-old being seen on rounds this morning. Patient is scheduled for an EGD by GI services morning. Patient is an alcoholic was admitted for upper GI bleed. There's been no further episodes of vomiting since admission. Hemoglobin was 9.5 last evening at 10:00pm patients being seen by surgical service at the request of the attending for a surgical eval patient has no evidence of an acute surgical abdomen at this time. Agree with EGD per GI service to evaluate for possible esophageal varices Objective - Vital Signs Vital signs: Vital Signs Temp 97.9 F 07/12/16 07:00 Pulse 86 07/12/16 07:00 Resp 18 07/12/16 07:00 BP 132/84 07/12/16 07:00 Pulse Ox 95 07/12/16 07:00 Intake & Output 07/11/16 07/12/16 07/12/16 18:59 06:59 18:59 Intake Total 1675 300 Output Total 505 950 250 Balance 1170 -650 -250 Intake: IV 250 Sodium Chloride 0.9% 1, 250 000 ml @ 125 mls/hr IV . Q8H [facility] Rx#:[id number] Intake, IV Titration 1350 Amount Sodium Chloride 0.9% 1, 1250 000 ml @ 125 mls/hr IV . Q8H [facility] Rx#:[id number] levETIRAcetam IV 500 mg 100 In Sodium Chloride 0.9% 100 ml @ 400 mls/hr IVPB BID [facility] Rx#:[id number] Oral 325 50 Output: Urine 505 950 250 Other: Voiding Method Urinal Urinal - Exam Physical exam 46-year-old male being seen this morning the attending at the bedside sitting up in bed is aware of the plan of care currently nothing by mouth for the EGD Lungs essentially clear with adequate air movement on room air no shortness breath heart S1-S2 audible regular Abdomen soft not distended active bowel tones no nausea no vomiting no frequent stooling Extremities no edema noted no tremors noted - Labs CBC & Chem 7: 07/11/16 22:10 07/11/16 03:35 Labs: Abnormal Lab Results - Last 24 Hours (Table) 07/11/16 Range/Units 22:10 RBC 3.24 L (4.30-5.90) m/uL Hgb 9.5 L (13.0-17.5) gm/dL Hct 30.2 L (39.0-53.0) % RDW 18.9 H (11.5-15.5) % Plt Count 73 L (150-450) k/uL Assessment and Plan Plan: Impression 46-year-old male transferred from [facility] for possible GI bleed in a patient who has a history of chronic alcoholism History of heavy alcohol use 2 pints of vodka per day Present on admission tachycardic suspect due to acute alcohol withdrawal Present on admission anemia likely due to a GI bleed necessitating 1 unit of packed red blood cells to be infused History of a depressive disorder nonspecified Present on admission mild rhabdomylysis Chronic thrombocytopenia Alcoholic likely chronic pancreatitis Plan At this time the patient does not have an acute surgical abdomen Agree with an EGD workup for possible esophageal varices EGD scheduled today At this time we'll sign off with no further surgical recommendations will re- eval as needed Repeat labs in the morning The above dictated assessment and findings were discussed with Dr. Javier Muñoz. Impression and the plan of care have been dictated as directed. Monique Gonzalez nurse practitioner acting as a scribe for Dr. Llanes .
[2016-07-13] MEDS: SODIUM CHLORIDE 0.9% 1,000 ML IV SCH ×2 (03:43→12:37)
--- NOTE | 2016-07-13 07:11 | PN ---
DATE OF SERVICE: 07/12/2016 PRESENTING COMPLAINT: GI bleed. INTERVAL HISTORY: This patient, an alcoholic presented with upper GI bleed. Saw this patient earlier today. Patient is pending EGD, resting in bed, tired. Review of systems done for constitutional, cardiovascular, GI, pulmonary: relevant findings as above. Current medications are reviewed. On examination, temperature 97.8, pulse 93, respirations 16, blood pressure 135/84, pulse ox 96% on room air. GENERAL APPEARANCE: Lying in bed, tired-appearing. EYES: Pupils equal. Conjunctivae are pale. NECK: JVD not raised. Mass not palpable. Respiratory effort normal. Lungs are clear. CARDIOVASCULAR: First and second sounds normal. No edema. ABDOMEN: Soft, nontender. Liver and spleen not palpable. PSYCHIATRY: Answering simple questions. INVESTIGATIONS: Hemoglobin 9.5. ASSESSMENT: 1. Acute gastrointestinal bleed in a patient with chronic alcoholism-like source, peptic ulcer disease, varices also to be considered. 2. Acute renal failure, probably prerenal with creatinine 1.5 on presentation. 3. Alcoholic hepatitis with elevated AST. 4. Thrombocytopenia from chronic alcoholism. 5. Acute blood loss anemia from gastrointestinal bleed. 6. Chronic alcohol dependence. 7. Acute rhabdomyolysis. PLAN: Continue current medication and treatment plan. Supportive care. Await EGD. Will follow.
--- NOTE | 2016-07-13 08:41 | P.PN ---
Subjective Principal diagnosis: Coffee-ground emesis 46-year-old male with a history of heavy EtOH abuse, EGD June 2015 with findings of distal esophageal stricture with severe reflux esophagitis presents with acute coffee-ground emesis. EGD attempted yesterday but canceled secondary to lack of IV access. Presently patient does not have IV access. He is tolerating a full liquid diet without recurrence of coffee-ground emesis, hematemesis, hematochezia, or melena. Afebrile. Objective - Vital Signs Vital signs: Vital Signs Temp 97.3 F L 07/13/16 07:00 Pulse 87 07/13/16 07:00 Resp 18 07/13/16 07:00 BP 145/89 07/13/16 07:00 Pulse Ox 99 07/13/16 07:00 Intake & Output 07/12/16 07/13/16 07/13/16 18:59 06:59 18:59 Intake Total 1175 Output Total 250 Balance 925 Intake: IV 1175 Sodium Chloride 0.9% 1, 1000 000 ml @ 125 mls/hr IV . Q8H [facility] Rx#:[id number] Output: Urine 250 Other: Voiding Method Urinal Urinal # Voids 2 - Exam General appearance: The patient is alert, oriented, in no acute distress. HET: Head is normocephalic and atraumatic. Pupils are equal and reactive. Oropharynx is clear without lesions. Neck: Supple without lymphadenopathy. Trachea midline. Heart: S1 S2. Regular rate and rhythm. Lungs: No crackles or wheezes are heard. Abdomen: Soft, mild midepigastric tenderness, nondistended with bowel sounds. No peritoneal signs. No palpable organomegaly or masses. Extremities: Normal skin color and turgor. No cyanosis, rash, ulceration, clubbing, or edema. Radial and pedal pulses are 2/4 bilaterally. Neurological: No focal deficits. Strength and sensation are grossly intact. - Labs CBC & Chem 7: 07/11/16 22:10 07/11/16 03:35 Assessment and Plan (1) Coffee ground emesis Status: Acute (2) H/O ETOH abuse Status: Chronic (3) GERD with esophagitis Status: Chronic (4) Upper GI bleed Status: Acute (5) Anemia Narrative/Plan: Component of mild acute blood loss Status: Chronic (6) Thrombocytopenia concurrent with and due to alcoholism Status: Chronic Plan: 1. Continue with full liquid diet. 2. Protonix 40 mg daily. 3. EGD contingent on clinical course and establishment of IV access. If IV access can be established today we'll proceed with EGD evaluation tomorrow. If not consideration for outpatient EGD was discussed. We'll continue to follow. Assessment and plan of care discussed with Dr. Albarado.
[2016-07-13] MEDS: levETIRAcetam IV 500 MG in SODIUM CHLORIDE 0.9% 100 ML IVPB SCH ×2 (09:11→12:36)
[2016-07-13] MEDS: THIAMINE 100 MG/ML 2 ML VIAL IVP SCH (09:13)
[2016-07-13] MEDS: PROPRANOLOL 20 MG TAB PO SCH ×2 (09:19→22:24)
[2016-07-13] MEDS: DIAZEPAM 5 MG TAB PO SCH ×3 (09:19→22:24)
[2016-07-13] MEDS: PANTOPRAZOLE 40 MG TABLET PO SCH (09:19)
[2016-07-13] MEDS: DIVALPROEX 500 MG TABLET.DR PO SCH ×4 (09:19→22:24)
[2016-07-13 11:18] LABS: Anisocytosis Slight; Basophils % (A) 1 %; CH 29.7; CHCM 33.1; Eosinophils # (A) 0.2 k/uL (0-0.7); Eosinophils % (A) 4 %; HGB 9.7 gm/dL (13.0-17.5); Hypochromasia Slight; Luc # (Auto) 0.21; Luc % (Auto) 4; Lymphocytes # (A) 1.3 k/uL (1.0-4.8); Lymphocytes % (A) 27 %; MCH 29.1 pg (25.0-35.0); MCHC 32.3 g/dL (31.0-37.0); MCV 90.1 fL (80.0-100.0); Mean Platelet Volume 9.6; Monocytes # (A) 0.3 k/uL (0-1.0); Monocytes % (A) 6 %; Neutrophils # (A) 2.8 k/uL (1.3-7.7); Neutrophils % (A) 59 %; Poikilocytosis Slight; RBC 3.33 m/uL (4.30-5.90); RDW 19.7 % (11.5-15.5); WBC 4.7 k/uL (3.8-10.6); WBC (Perox) 4.57
--- NOTE | 2016-07-13 13:28 | PN ---
DATE OF SERVICE: 07/13/2016 PRESENTING COMPLAINT: GI bleed. INTERVAL HISTORY: This patient, an alcoholic, presented with upper GI bleed. Did not have an EGD done ( ), as patient lost his IV site. Much more stable, awake. Did tolerate a full liquid diet. Lying in bed. Review of systems done for constitutional, cardiovascular, GI, pulmonary; relevant findings as above. Current medications are reviewed that include IV fluids, IV Keppra. On examination, temperature 97.3, pulse 87, respirations 18, blood pressure 145/89, pulse ox 99% on room air. GENERAL APPEARANCE: Lying in bed, awake, comfortable. EYES: Pupils equal. Conjunctiva pale. NECK: JVD not raised. Mass not palpable. RESPIRATORY: Effort normal. Lungs are clear. CARDIOVASCULAR: First and second sounds normal. No edema. ABDOMEN: Soft, nontender. Liver and spleen not palpable. PSYCHIATRY: Awake, answering questions appropriately. INVESTIGATIONS: Hemoglobin 9.7, platelets 106. ASSESSMENT: 1. Acute gastrointestinal bleed in a patient with chronic alcoholism a likely source peptic ulcer disease, varices in differential, now stabilized. Hemoglobin has remained stable. 2. Acute renal failure, probably prerenal with creatinine 1.5 on presentation. 3. Alcoholic hepatitis with elevated AST. 4. Thrombocytopenia from chronic alcoholism. 5. Acute blood loss anemia from GI bleed. 6. Chronic alcohol dependence. 7. Acute rhabdomyolysis. PLAN: Will switch the patient's Keppra to p.o., discontinue IV fluids. Await EGD. Care was discussed with the patient. Have the patient sit up on a chair and ambulate as tolerated.
--- NOTE | 2016-07-13 13:39 | P.PN ---
Subjective 46-year-old being seen this morning currently is scheduled for an EGD today by GI service as part of a workup for an episode of coffee-ground emesis. The EGD the day before needed to be canceled there were no IV access. Currently patient resting in bed does not appear in any acute distress. Being followed by surgical service at the request of the attending for surgical eval continues to have no evidence of an acute surgical abdomen at this time Objective - Vital Signs Vital signs: Vital Signs Temp 97.3 F L 07/13/16 07:00 Pulse 87 07/13/16 07:00 Resp 18 07/13/16 07:00 BP 145/89 07/13/16 07:00 Pulse Ox 99 07/13/16 07:00 Intake & Output 07/12/16 07/13/16 07/13/16 18:59 06:59 18:59 Intake Total 1175 Output Total 250 Balance 925 Intake: IV 1175 Sodium Chloride 0.9% 1, 1000 000 ml @ 125 mls/hr IV . Q8H [facility] Rx#:[id number] Output: Urine 250 Other: Voiding Method Urinal Urinal # Voids 2 - Exam Physical exam 46-year-old male being seen this morning the attending at the bedside sitting up in bed scheduled today for an EGD Lungs essentially clear with adequate air movement on room air no shortness breath heart S1-S2 audible regular Abdomen soft not distended active bowel tones no nausea no vomiting no frequent stooling currently nothing by mouth Extremities no edema noted no tremors noted - Labs CBC & Chem 7: 07/13/16 10:48 07/11/16 03:35 Labs: Abnormal Lab Results - Last 24 Hours (Table) 07/13/16 Range/Units 10:48 RBC 3.33 L (4.30-5.90) m/uL Hgb 9.7 L (13.0-17.5) gm/dL Hct 30.0 L (39.0-53.0) % RDW 19.7 H (11.5-15.5) % Plt Count 106 L (150-450) k/uL Assessment and Plan Plan: Impression 46-year-old male transferred from [facility] for possible GI bleed in a patient who has a history of chronic alcoholism History of heavy alcohol use 2 pints of vodka per day Present on admission tachycardic suspect due to acute alcohol withdrawal Present on admission anemia likely due to a GI bleed necessitating 1 unit of packed red blood cells to be infused History of a depressive disorder nonspecified Present on admission mild rhabdomylysis Chronic thrombocytopenia Alcoholic likely chronic pancreatitis Plan At this time the patient does not have an acute surgical abdomen Agree with an EGD workup for possible esophageal varices scheduled for today EGD scheduled today At this time we'll sign off with no further surgical recommendations will re- eval as needed Repeat labs in the morning The above dictated assessment and findings were discussed with Dr. Javier Muñoz. Impression and the plan of care have been dictated as directed. Monique Gonzalez nurse practitioner acting as a scribe for Dr. Llanes .
[2016-07-14] MEDS: levETIRAcetam 500 MG TAB PO SCH (08:24)
[2016-07-14] MEDS: DIAZEPAM 5 MG TAB PO SCH ×3 (08:24→23:07)
[2016-07-14] MEDS: PANTOPRAZOLE 40 MG TABLET PO SCH (08:25)
[2016-07-14] MEDS: DIVALPROEX 500 MG TABLET.DR PO SCH ×4 (08:25→23:07)
[2016-07-14] MEDS: PROPRANOLOL 20 MG TAB PO SCH ×2 (08:25→23:07)
[2016-07-14] MEDS: THIAMINE 100 MG/ML 2 ML VIAL IVP SCH (08:26)
[2016-07-14] MEDS ORDERED: LIDOCAINE 1% INJ 10MG/ML (20 ML MDV) ONE (10:52)
[2016-07-14] MEDS ORDERED: PROPOFOL 10 MG/ML 20 ML VIAL IV ONE (10:52)
[2016-07-14] MEDS ORDERED: IV FLUID CONTINUATION 1,000 ML IV ONE (10:55)
--- NOTE | 2016-07-14 11:36 | P.PCN ---
Date of Procedure: 07/14/16 Procedure(s) Performed: BRIEF HISTORY: Patient is a 46-year-old, pleasant, white male, admitted to the hospital with acute upper GI bleed. He has history of heavy alcohol abuse for several years duration. He scheduled for an upper endoscopy as a part of evaluation of acute upper GI bleed. PROCEDURE PERFORMED: Esophagogastroduodenoscopy. PREOPERATIVE DIAGNOSIS: Acute upper GI bleed. IV sedation per anesthesia. PROCEDURE: After informed consent was obtained, the patient was brought into the endoscopy unit. IV conscious sedation was administered by Anesthesia under continuous monitoring. Initially the Olympus GIF-140 video endoscope was inserted into the mouth. Esophagus intubated without any difficulty. It was gradually advanced into the midesophagus where there was severe esophagitis with esophageal stricture identified. The scope could not be advanced further. At this time the scope was removed and a pediatric upper endoscopy was then inserted in the mouth and esophagus intubated without any difficulty and with gentle pressure I was able to advance it into the stomach and duodenum and carefully examined. The bulb and the second part of the duodenum appeared normal. The scope at this time was withdrawn to the stomach, adequately insufflated with air, and upon careful examination, mucosa of the antrum, had mild gastritis. The body, cardia and the fundus appeared normal. The scope was then withdrawn into the esophagus. Small hiatal hernia noted. The GE junction was located at 39 cm from the incisors. The esophagus had multiple erosions or ulcerations in the mid and distal esophagus extending from 30-39 cm from the incisors with esophageal stricture and spontaneous oozing from the dilation with the passage of the scope the proximal esophagus appeared normal and the patient tolerated the procedure well. IMPRESSION: 1 Severe reflux esophagitis with multiple erosions ulcerations and distal esophageal stricture and spontaneous oozing consistent with grade 4 reflux esophagitis . 2 Antral gastritis]. RECOMMENDATIONS: The findings of this examination were discussed with the patient. At this time will be continued on Protonix 40 mg twice daily and was briefly educated about antireflux measures. He was encouraged to remain abstinent from alcohol.].
[2016-07-15 07:57] VITALS: RESP 20
[2016-07-15] MEDS: DIVALPROEX 500 MG TABLET.DR PO SCH ×2 (07:59→12:51)
[2016-07-15] MEDS: PROPRANOLOL 20 MG TAB PO SCH (07:59)
[2016-07-15] MEDS: PANTOPRAZOLE 40 MG TABLET PO SCH (07:59)
[2016-07-15] MEDS: levETIRAcetam 500 MG TAB PO SCH (07:59)
[2016-07-15] MEDS: DIAZEPAM 5 MG TAB PO SCH ×2 (08:00→15:54)
--- NOTE | 2016-07-15 08:16 | PN ---
DATE OF SERVICE: 07/14/2016 PRESENTING COMPLAINT: GI bleed. INTERVAL HISTORY: This alcoholic presented with GI bleed, underwent EGD today. Findings showed primary inflammation. Patient diet is being advanced. No abdominal pain. Review of systems done for constitutional, cardiovascular, GI, pulmonary; relevant findings as above. Current medications are reviewed that include Protonix. On examination, temperature 97.9, pulse 85, respirations 16, blood pressure 148/87, pulse ox 96% on room air. GENERAL APPEARANCE: Lying in bed, comfortable. EYES: Pupils equal. Conjunctivae pale. NECK: JVD not raised. Mass not palpable. RESPIRATORY: Effort normal. Lungs are clear. CARDIOVASCULAR: First and second sounds normal. No edema. ABDOMEN: Soft, nontender. Liver and spleen not palpable. PSYCHIATRY: Answering simple questions. INVESTIGATIONS: Hemoglobin 9.7. ASSESSMENT: 1. Acute gastrointestinal bleed in a patient with chronic alcoholism. The patient's esophagogastroduodenoscopy showing severe reflux esophagitis with multiple erosions and distal esophageal stricture. 2. Antral gastritis. 3. Acute renal failure, probably prerenal on presentation, corrected. 4. Alcoholic hepatitis. 5. Thrombocytopenia from chronic alcoholism. 6. Acute blood loss anemia from gastrointestinal bleed. 7. Chronic alcohol dependence. 8. Acute rhabdomyolysis, improved. PLAN: Continue current medication and treatment plan. Diet has been advanced per GI. Looking for discharge tomorrow.
[2016-07-15] MEDS ORDERED: THIAMINE 100 MG TAB PO SCH (12:00)
--- NOTE | 2016-07-15 13:50 | P.PN ---
Subjective Principal diagnosis: Coffee-ground emesis s/p EGD severe reflux esophagitis, ulcerations and distal stricture. Reports epigastric discomfort no bleeding. Objective - Vital Signs Vital signs: Vital Signs Temp 98.6 F 07/15/16 07:00 Pulse 90 07/15/16 07:00 Resp 20 07/15/16 07:00 BP 148/82 07/15/16 07:00 Pulse Ox 95 07/15/16 07:00 Intake & Output 07/14/16 07/15/16 07/15/16 18:59 06:59 18:59 Intake Total 750 480 120 Output Total 1400 Balance -650 480 120 Weight 61.8 kg Intake: IV 250 Oral 500 480 120 Output: Urine 1300 Emesis 100 Other: Voiding Method Urinal # Voids 1 2 # Emeses 2 - Exam General appearance: The patient is alert, oriented, in no acute distress. HET: Head is normocephalic and atraumatic. Pupils are equal and reactive. Oropharynx is clear without lesions. Neck: Supple without lymphadenopathy. Trachea midline. Heart: S1 S2. Regular rate and rhythm. Lungs: No crackles or wheezes are heard. Abdomen: Soft, mild midepigastric tenderness, nondistended with bowel sounds. No peritoneal signs. No palpable organomegaly or masses. Extremities: Normal skin color and turgor. No cyanosis, rash, ulceration, clubbing, or edema. Radial and pedal pulses are 2/4 bilaterally. Neurological: No focal deficits. Strength and sensation are grossly intact. - Labs CBC & Chem 7: 07/13/16 10:48 07/11/16 03:35 Assessment and Plan (1) Coffee ground emesis Narrative/Plan: status post EGD; secondary to severe reflux esophagitis with ulcerations and distal esophageal stricture Status: Acute (2) H/O ETOH abuse Status: Chronic (3) GERD with esophagitis Status: Chronic (4) Upper GI bleed Status: Acute (5) Anemia Narrative/Plan: Component of mild acute blood loss Status: Chronic (6) Thrombocytopenia concurrent with and due to alcoholism Status: Chronic Plan: 1. Continue with full liquid diet. 2. Protonix 40 mg twice daily on discharge. Abstain from ETOH. 3. DC per medicine. RTO 2 weeks. Assessment and plan of care discussed with Dr. Albarado.
[2016-07-15 15:26] VITALS: BP 131/90; PULSE 91; TEMP 98.8
--- NOTE | 2016-07-16 10:25 | DS ---
DATE OF ADMISSION: 07/10/2016 DATE OF DISCHARGE: 07/15/2016 FINAL DIAGNOSES: 1. Acute gastrointestinal bleed in a patient with chronic alcoholism with esophagogastroduodenoscopy showing severe reflux esophagitis with multiple erosions and distal esophageal stricture. 2. Antral gastritis from alcoholism. 3. Acute renal failure, probably prerenal, on presentation. 4. Alcoholic hepatitis, chronic. 5. Thrombocytopenia from chronic alcoholism. 6. Acute blood loss anemia from gastrointestinal bleed from above source. 7. Chronic alcohol dependence. 8. Acute rhabdomyolysis, present on admission. HOSPITAL COURSE: This patient presented with upper GI bleed. EGD showed the above findings. Doing better, is tolerating a diet. Patient was transfused blood. Patient's hemoglobin was 9.7 upon discharge. Platelets were 106. Patient counseled heavily about cessation of smoking. CONSULTATION: Dr. Albarado from . DISCHARGE MEDICATIONS: 1. Propranolol 20 mg p.o. b.i.d. 2. Folic acid 1 mg daily. 3. Depakote 500 mg p.o. q.i.d. 4. Flomax 1 tablet b.i.d. 5. Thiamine 100 mg p.o. daily. 6. Xanax 0.5 p.o. t.i.d. 7. Multivitamin 1 tablet p.o. daily. 8. Keppra 1000 mg p.o. daily. 9. Protonix 40 mg p.o. b.i.d. Follow up with Dr. Perez on 07/22/2016. Follow up with Dr. Charles Albarado on 07/29/2016. DIET: Soft diet. No alcohol. On examination, LUNGS: Clear. ABDOMEN: Soft, nontender.
== END 2016-07-15 17:06 | disposition home or self-care (01) | DRG 391 ==
LOC: EC 16:33 → 6ICU 18:54 → 4MS4W 07-11 16:45
PROVIDERS: ADMIT Hospitalist; ATTEND Hospitalist
PROC: 30233N1 Transfusion of Nonautologous Red Blood Cells into Peripheral Vein, Percutaneous Approach (ICD-10-PCS; 2016-07-11)
PROC: 0DJ08ZZ Inspection of Upper Intestinal Tract, Via Natural or Artificial Opening Endoscopic (ICD-10-PCS; principal; 2016-07-14 11:30)
DX: K21.0 Gastro-esophageal reflux disease with esophagitis (principal); K22.11 Ulcer of esophagus with bleeding; N17.9 Acute kidney failure, unspecified; D62 Acute posthemorrhagic anemia; M62.82 Rhabdomyolysis; K86.1 Other chronic pancreatitis; F10.239 Alcohol dependence with withdrawal, unspecified; D69.59 Other secondary thrombocytopenia; K22.2 Esophageal obstruction; K70.30 Alcoholic cirrhosis of liver without ascites; E86.0 Dehydration; K70.10 Alcoholic hepatitis without ascites; F32.9 Major depressive disorder, single episode, unspecified; G40.909 Epilepsy, unspecified, not intractable, without status epilepticus; G89.29 Other chronic pain; I10 Essential (primary) hypertension; K29.60 Other gastritis without bleeding; K44.9 Diaphragmatic hernia without obstruction or gangrene; Z82.49 Family history of ischemic heart disease and other diseases of the circulatory system; Z79.899 Other long term (current) drug therapy
CPT/HCPCS: 36415; 43235; 71010; 80053; 80177; 82150; 82550; 82553; 83690; 83735; 84100; 84484; 85025; 85027; 85610; 85730; 86850; 86900; 86901; 93005; 96361; 96374; 96375; 99291

== ENCOUNTER 2017-07-26 17:14 | Inpatient (IN) | payer OTHER ==
[2017-07-26] MEDS ORDERED: MORPHINE SULFATE 4 MG/ML SYRINGE IVP STA (17:59)
[2017-07-26] MEDS ORDERED: ONDANSETRON 4 MG/2 ML VIAL IVP STA (17:59)
[2017-07-26] MEDS ORDERED: PANTOPRAZOLE 40 MG/10 ML VIAL IVP STA (17:59)
[2017-07-26] MEDS ORDERED: SODIUM CHLORIDE 0.9% 1,000 ML IV STA (17:59)
[2017-07-26] MEDS ORDERED: LORazepam 2 MG/ML INJ IV PRN (18:37)
[2017-07-26] MEDS ORDERED: NALOXONE 0.4 MG/ML 1 ML VIAL IV PRN (18:39)
--- NOTE | 2017-07-26 18:39 | ED ---
General Adult HPI - General Chief complaint: Abdominal Pain Stated complaint: Renal Failure Time Seen by Provider: 07/26/17 17:19 Source: patient, EMS, RN notes reviewed, old records reviewed Mode of arrival: EMS Limitations: no limitations - History of Present Illness Initial comments: Chief complaint history of present illness a 47-year-old male, transferred from [facility]. The patient reports starting approximate 5 PM last night he started having some vomiting of coffee ground material. Patient is not alcoholic. His last alcoholic drink was at 5 PM yesterday. He also states she' s had epilepsy since he was a child and he does have problems with seizures when withdraws. At the other facility labs are done and x-rays were done. Patient had a central line placed on the left side. Chest x-ray performed that time reported to be negative for any problems. The patient's labs are reviewed. Patient reports he also had dark stool today. He reports having had multiple episodes of bleeding from his stomach. States she's never heard of her been told he had esophageal varices. - Related Data Home Medications Medication Instructions Recorded Confirmed Propranolol HCl 20 mg PO BID 06/30/15 07/10/16 Folic Acid 1 mg PO DAILY 09/12/15 07/10/16 ALPRAZolam [Xanax] 0.5 mg PO TID 07/10/16 07/10/16 Multivitamins, Thera [Multivitamin 1 tab PO DAILY@1200 07/10/16 07/10/16 (formulary)] levETIRAcetam [Keppra] 1,000 mg PO DAILY 07/10/16 07/10/16 Previous Rx's Medication Instructions Recorded Divalproex [Depakote] 500 mg PO QID #120 tablet. 01/05/16 Magnesium Chloride [Slow-Mag] 128 mg PO BID #120 tablet.er 01/05/16 Thiamine [Vitamin B-1] 100 mg PO DAILY@1200 #30 tab 01/05/16 Pantoprazole [Protonix] 40 mg PO BID #60 tablet. 07/15/16 Allergies Allergy/AdvReac Type Severity Reaction Status Date / Time Penicillins Allergy Rash/Hives Verified 07/26/17 17:21 Review of Systems ROS Statement: Those systems with pertinent positive or pertinent negative responses have been documented in the HPI. Review of systems no headache or visual acuity changes. He has epigastric discomfort. Has vomited coffee-ground material several times since last night. Denies any neural problems. No seizures today. Patient was started on a banana bag at the other facility. Patient was also sent here because of renal problems with a creatinine of 3.9 BUN 44. Patient reports this too is been a chronic problem. No old numbers available at this time to compare to. Vital signs remained stable here. Past medical problems significant for reflux, hypertension, chronic liver disease secondary to alcohol abuse. Memory impairment secondary alcohol abuse, seizure disorder since he was younger. And patient states she's not alcoholic, drinks vodka to excess. Surgeries tonsils and adenoids. Family history cancer 19 type. Patient denies any ALLERGIES. Denies smoking. Drinks alcoholvodka daily. ROS Other: All systems not noted in ROS Statement are negative. Past Medical History Past Medical History: GERD/Reflux, Hypertension, Liver Disease, Memory Impairment, Seizure Disorder Additional Past Medical History / Comment(s): Alcoholism, alcoholic pancreatitis , alcoholic seizures, as esophageal stricture and reflux esophagitis, alcoholic dementia, depression History of Any Multi-Drug Resistant Organisms: C-DIFF Date of last positivie culture/infection: 07/02/2015 MDRO Source:: stool Past Surgical History: Adenoidectomy, Tonsillectomy Past Anesthesia/Blood Transfusion Reactions: No Reported Reaction Past Psychological History: Bipolar, Depression Smoking Status: Unknown if ever smoked Past Alcohol Use History: Abuse, Daily, Heavy Past Drug Use History: None Reported - Past Family History Father Family Medical History: Diabetes Mellitus Mother Family Medical History: Diabetes Mellitus, Deep Vein Thrombosis (DVT), Hypertension Sister(s) Family Medical History: Diabetes Mellitus Brother(s) Family Medical History: Diabetes Mellitus General Exam - General Exam Comments Initial Comments: General: The patient is awake and alert, transferred from [facility] for evaluation and management here for upper GI bleed, he didn't vomiting coffee ground material. Past history of gastritis with bleeding. Alcohol abuse, chronic. Vital signs temperature 98.2 pulse 1:15 respiratory rate 18 pulse ox 90% room air blood pressure 155/84. Eye: Pupils are equal, round and reactive to light, extra-ocular movements are intact ; there is normal conjunctiva bilaterally. No signs of icterus. Ears, nose, mouth and throat: There are moist mucous membranes and no oral lesions. Neck: The neck is supple, there is no tenderness . Cardiovascular: There is a regular rate and rhythm. No murmur, rub or gallop is appreciated. Respiratory: Lungs are clear to auscultation, respirations are non-labored, breath sounds are equal. No wheezes, stridor, rales, or rhonchi. Gastrointestinal: Tender epigastric region on palpation no rebound or referred pain no guarding. Active bowel sounds. Back: There is no tenderness to palpation in the midline. There is no obvious deformity. No rashes noted. Musculoskeletal: Normal ROM, no tenderness, There is no pedal edema. There is no calf tenderness or swelling. Sensation intact. Pulses equal bilaterally 2+. Neurological: CN II-XII intact, There are no obvious motor or sensory deficits. Coordination appears grossly intact. Speech is normal. No neuro deficits. Skin: Skin is warm and dry and no rashes or lesions are noted. Psychiatric: Patient states he's had chronic alcoholism for many years. Denies depression. Limitations: no limitations Course Vital Signs 07/26/17 17:17 Temperature 98.2 F Pulse Rate 115 H Respiratory 18 Rate Blood Pressure 155/84 O2 Sat by Pulse 98 Oximetry Medical Decision Making - Medical Decision Making Medical decision making; this is a 47-year-old male sent emergency room for admission because of upper GI bleed. Repeat labs been ordered. The case discussed with Dr. Goodrich, on-call hospitalist. Patient be admitted his service with GI consultation. The patient will be continued on PPIs, Ativan protocol. Disposition Clinical Impression: Upper gastrointestinal bleed, Alcoholic gastritis with bleeding Disposition: ADMITTED IP TO THIS HOSP Condition: Serious Referrals: Wicho Perez MD [Primary Care Provider] - 1-2 days
[2017-07-26 18:42] LABS: Albumin 3.5 g/dL (3.5-5.0); Total Bilirubin 0.5 mg/dL (0.2-1.3); Total Protein 5.9 g/dL (6.3-8.2)
[2017-07-26 18:44] LABS: Anisocytosis Slight; Basophils % (A) 0 %; Eosinophils % (A) 0 %; HCT 25.1 % (39.0-53.0); HGB 7.8 gm/dL (13.0-17.5); Hypochromasia Moderate; Lymphocytes # (A) 0.6 k/uL (1.0-4.8); Lymphocytes % (A) 12 %; MCH 26.8 pg (25.0-35.0); MCV 86.4 fL (80.0-100.0); Mean Platelet Volume 8.3; Monocytes # (A) 0.4 k/uL (0-1.0); Monocytes % (A) 9 %; Neutrophils # (A) 3.3 k/uL (1.3-7.7); Neutrophils % (A) 75 %; Poikilocytosis Slight; RDW 19.5 % (11.5-15.5); WBC 4.5 k/uL (3.8-10.6)
[2017-07-26 18:46] LABS: Platelet Count 81 k/uL (150-450)
--- NOTE | 2017-07-26 18:49 | XR ---
EXAMINATION TYPE: XR KUB DATE OF EXAM: 07/26/2017 COMPARISON: NONE HISTORY: Abdominal pain TECHNIQUE: 2 views FINDINGS: There is no sign of intestinal obstruction or pneumoperitoneum. Fecal pattern is normal. Th ere are no pathologic calcifications over the kidneys. There is no evidence of a mass. IMPRESSION: Nonacute abdomen.
[2017-07-26 18:53] LABS: Potassium 4.5 mmol/L (3.5-5.1)
[2017-07-26] MEDS ORDERED: SODIUM CHLORIDE 0.9% 1,000 ML with MVI, ADULT NO.4 WITH VIT K 10 ML, THIAMINE 100 MG, F... IV ONE ×4 (19:00)
[2017-07-26] MEDS ORDERED: CALCITRIOL 0.25 MCG CAP PO ONE (20:00)
[2017-07-26] MEDS ORDERED: MORPHINE SULFATE 4 MG/ML SYRINGE IVP ONE (20:06)
[2017-07-26] MEDS ORDERED: OCTREOTIDE 100 MCG/ML INJ IVP STA (20:13)
[2017-07-26] MEDS ORDERED: SODIUM CHLORIDE 0.45% 1,000 ML IV SCH (20:15)
[2017-07-26] MEDS ORDERED: CALCIUM GLUCONATE 1,000 MG in SODIUM CHLORIDE 0.9% 100 ML IVPB ONE (20:15)
[2017-07-26] MEDS: MAGNESIUM SULFATE-D5W PMX 1 GM in DEXTROSE/WATER 1 100ML.BAG IVPB SCH ×2 (20:21→23:27)
--- NOTE | 2017-07-26 20:36 | P.HPIM ---
History of Present Illness H&P Date: 07/26/17 Chief Complaint: Coffee ground emesis This is a 47-year-old male past medical history of alcoholism, GI bleed due to presumably gastritis and seizure disorder who was transferred here from outside institution due to coffee-ground emesis. Patient states that last night he was awoken up by nausea start stretching into up black fluids multiple times. Patient cannot say, at times he told but he said it was multiple times. He also had some upper abdominal his comfort. Also noticed melanotic black stools. He denied any pain in his stomach ulcer. Patient been binge drinking for the last few days and prior to this problem started he drank about a pint of vodka. Patient reports previous history of GI bleeding in the same manner for which he had his states multiple EGDs. Last time was in outside institution about a month ago. Patient cannot tell me what was found on dose examinations. He thinks that he might mind was told that he has an ulcer or gastritis and not sure if he has varices. Patient tells me that he has liver cirrhosis from drinking. Patient denied any shortness of breath, cough, fever, abdominal swelling, chest pain, dizziness,. Patient denies taking any NSAIDs like medications or any PPIs. He denies any heartburns or difficulty swallowing food or pain is following food. In the emergency department he was found to have hemoglobin of 7.8 normal blood pressure heartrate slightly elevated and low calcium. His creatinine was also elevated and he does he has chronic kidney disease but he does not know much detail about. He reports that he has had multiple admissions for alcohol withdrawals in the past and that he suffered DVTs and withdrawal seizures although he reports having epilepsy since childhood. Review of Systems Constitutional: Reports anorexia, Reports fatigue, Reports weight loss, Denies weakness Ears, nose, mouth and throat: Denies bleeding gums, Denies dysphagia, Denies epistaxis, Denies headache Cardiovascular: Denies chest pain, Denies dyspnea on exertion, Denies high blood pressure, Denies shortness of breath Respiratory: Denies congestion, Denies cough, Denies dyspnea, Denies hemoptysis , Denies pain on inspiration Gastrointestinal: Reports as per HPI Genitourinary: Denies dysuria, Denies flank pain, Denies hematuria Musculoskeletal: Denies frequent falls, Denies gait dysfunction, Denies leg numbness/tingling Integumentary: Denies rash Neurological: Denies confusion, Denies convulsions, Denies headaches Psychiatric: Reports anxiety Past Medical History Past Medical History: GERD/Reflux, Hypertension, Liver Disease, Memory Impairment, Seizure Disorder Additional Past Medical History / Comment(s): Alcoholism, alcoholic pancreatitis , alcoholic seizures, as esophageal stricture and reflux esophagitis, alcoholic dementia, depression History of Any Multi-Drug Resistant Organisms: C-DIFF Date of last positivie culture/infection: 07/02/2015 MDRO Source:: stool Past Surgical History: Adenoidectomy, Tonsillectomy Past Anesthesia/Blood Transfusion Reactions: No Reported Reaction Past Psychological History: Bipolar, Depression Smoking Status: Unknown if ever smoked Past Alcohol Use History: Abuse, Daily, Heavy Past Drug Use History: None Reported - Past Family History Father Family Medical History: Diabetes Mellitus Mother Family Medical History: Diabetes Mellitus, Deep Vein Thrombosis (DVT), Hypertension Sister(s) Family Medical History: Diabetes Mellitus Brother(s) Family Medical History: Diabetes Mellitus Medications and Allergies Home Medications Medication Instructions Recorded Confirmed Type Propranolol HCl 20 mg PO BID 06/30/15 07/26/17 History Folic Acid 1 mg PO DAILY 09/12/15 07/26/17 History Magnesium Chloride [Slow-Mag] 128 mg PO BID #120 tablet.er 01/05/16 07/26/17 Rx Thiamine [Vitamin B-1] 100 mg PO DAILY@1200 #30 tab 01/05/16 07/26/17 Rx Multivitamins, Thera [Multivitamin 1 tab PO DAILY@1200 07/10/16 07/26/17 History (formulary)] Ondansetron Odt [Zofran Odt] 4 mg PO Q8HR 07/26/17 07/26/17 History Sertraline HCl [Zoloft] 25 mg PO DAILY 07/26/17 07/26/17 History Sucralfate [Carafate] 1 gm PO QID 07/26/17 07/26/17 History Valproic Acid Oral Soln [Depakene 250 mg PO BID 07/26/17 07/26/17 History Syrup] levETIRAcetam 500 mg PO BID 07/26/17 07/26/17 History Allergies Allergy/AdvReac Type Severity Reaction Status Date / Time Penicillins Allergy Rash/Hives Verified 07/26/17 17:21 Physical Exam Vitals: Vital Signs Temp Pulse Resp BP Pulse Ox 07/26/17 20:04 107 H 18 118/67 98 07/26/17 18:56 98.7 F 118 H 18 121/63 99 07/26/17 17:17 98.2 F 115 H 18 155/84 98 Intake and Output 07/26/17 07/26/17 07/26/17 06:59 14:59 22:59 Other: Weight 58.967 kg Patient Weight 07/27/17 06:59 Weight 58.967 kg - Constitutional General appearance: cooperative, no acute distress, thin - EENT Eyes: anicteric sclerae, EOMI, PERRLA ENT: normal oropharynx, no pharyngeal erythema, no thrush - Neck Neck: no lymphadenopathy - Respiratory Respiratory: bilateral: CTA, negative: rales, rhonchi, wheezing - Cardiovascular Heart sounds: normal: S1, S2 Abnormal Heart Sounds: no rub - Gastrointestinal General gastrointestinal: normal bowel sounds, no organomegaly, soft, no tenderness - Integumentary Integumentary: pale - Psychiatric Psychiatric: A&O x's 3 Results CBC & Chem 7: 07/26/17 18:15 07/26/17 18:15 Labs: Abnormal Lab Results - Last 24 Hours (Table) 07/26/17 07/26/17 Range/Units 18:15 18:15 RBC 2.90 L (4.30-5.90) m/uL Hgb 7.8 L (13.0-17.5) gm/dL Hct 25.1 L (39.0-53.0) % RDW 19.5 H (11.5-15.5) % Plt Count 81 L (150-450) k/uL Lymphocytes # 0.6 L (1.0-4.8) k/uL Sodium 146 H (137-145) mmol/L Carbon Dioxide 19 L (22-30) mmol/L BUN 46 H (9-20) mg/dL Creatinine 2.64 H (0.66-1.25) mg/dL Glucose 117 H (74-99) mg/dL Calcium 6.0 L* (8.4-10.2) mg/dL ALT 18 L (21-72) U/L Total Protein 5.9 L (6.3-8.2) g/dL Amylase 178 H (30-110) U/L Abdominal x-ray: report reviewed Thrombosis Risk Factor Assmnt - DVT/VTE Prophylaxis DVT/VTE Prophylaxis: Mechanical Prophylaxis ordered Assessment and Plan (1) Hypocalcemia Narrative/Plan: Likely related to decreased by mouth intake, hypomagnesemia and low vitamin D levels Patient is asymptomatic but we will need to aggressively replace in view of history of seizures and in case he needs blood transfusions Plan needs to give 2 g of calcium gluconate IV piggyback over 2 hours Will recheck calcium in 4 hours 2 g of magnesium IV piggyback over 4 hours as well Start calcitriol and oral calcium supplementation with vitamin D Current Visit: Yes Status: Acute Priority: High Code(s): E83.51 - HYPOCALCEMIA SNOMED Code(s): 8675008 (2) Hypernatremia Narrative/Plan: Mild and asymptomatic due to free water deficit from dehydration Discontinue normal saline *Half normal saline and will monitor his sodium BMP will be ordered in 4 hours Current Visit: Yes Status: Acute Priority: High Code(s): E87.0 - HYPEROSMOLALITY AND HYPERNATREMIA SNOMED Code(s): 52380518 (3) Acute kidney injury Narrative/Plan: Unclear if patient has CTD or this is acute kidney injury Patient reports a daily but I believe this is a significant component to a cataract Give IV fluids and checked a bladder scan to rule out any retention Check UA If no improvement with IV fluid challenge will consider other etiologies Current Visit: Yes Status: Acute Code(s): N17.9 - ACUTE KIDNEY FAILURE, UNSPECIFIED SNOMED Code(s): 96359979 (4) Upper GI bleed Narrative/Plan: With hematemesis Related to peptic ulcer disease versus gastritis versus variceal bleeding Patient states having cirrhosis but not sure but varices Plan is nothing by mouth, GI consultation, PPI IV, octreotide infusion Acute anemia of blood loss Type and screen Monitor hemoglobin every 6 hours Will transfuse as needed Current Visit: Yes Status: Acute Code(s): K92.2 - GASTROINTESTINAL HEMORRHAGE, UNSPECIFIED SNOMED Code(s): 00210406 (5) Alcohol dependence Narrative/Plan: Monitor for withdrawals CIWA Vitamine suppl Current Visit: No Status: Acute Code(s): F10.20 - ALCOHOL DEPENDENCE, UNCOMPLICATED SNOMED Code(s): 22656022 (6) Seizure disorder, generalized convulsive, intractable Narrative/Plan: Seizure precautions and continue home medications for now Current Visit: No Status: Acute Code(s): G40.319 - GENERALIZED IDIOPATHIC EPILEPSY, INTRACTABLE, W/O STAT EPI SNOMED Code(s): 96032640 (7) Anemia Current Visit: No Status: Chronic Code(s): D64.9 - ANEMIA, UNSPECIFIED SNOMED Code(s): 129305968 (8) Thrombocytopenia concurrent with and due to alcoholism Current Visit: No Status: Chronic Code(s): D69.59 - OTHER SECONDARY THROMBOCYTOPENIA; F10.20 - ALCOHOL DEPENDENCE, UNCOMPLICATED SNOMED Code(s): 27573340315747
[2017-07-26 20:49] LABS: INR 1.1 (<1.2)
[2017-07-26] MEDS ORDERED: PROPRANOLOL 20 MG TAB PO SCH (21:00)
[2017-07-26] MEDS ORDERED: CALCIUM GLUCONATE 2,000 MG in SODIUM CHLORIDE 0.9% 100 ML IVPB ONE (21:00)
--- NOTE | 2017-07-26 21:40 | P.PN ---
Progress Note - Text I discussed with the patient about advanced directives. He wishes to remain full code. His surrogate decision maker is his mother Stacie.
[2017-07-26] MEDS ORDERED: SUCRALFATE 1 GM TAB PO SCH (22:00)
[2017-07-27] MEDS: OCTREOTIDE 200 MCG in SODIUM CHLORIDE 0.9% 100 ML IV SCH ×5 (00:01→16:56)
[2017-07-27 00:56] LABS: Magnesium 1.9 mg/dL (1.6-2.3); Potassium 4.3 mmol/L (3.5-5.1)
[2017-07-27 01:07] LABS: Anisocytosis Slight; HCT 22.7 % (39.0-53.0); Hypochromasia Moderate; MCH 25.9 pg (25.0-35.0); MCHC 30.4 g/dL (31.0-37.0); MCV 85.3 fL (80.0-100.0); Mean Platelet Volume 7.3; Platelet Count 85 k/uL (150-450); RBC 2.66 m/uL (4.30-5.90); RDW 19.4 % (11.5-15.5); WBC 4.9 k/uL (3.8-10.6)
[2017-07-27 01:09] LABS: HGB 6.9 gm/dL (13.0-17.5)
[2017-07-27] MEDS ORDERED: CALCIUM GLUCONATE 1,000 MG in SODIUM CHLORIDE 0.9% 100 ML IVPB ONE (01:20)
[2017-07-27 08:18] LABS: Anisocytosis Slight; HCT 26.8 % (39.0-53.0); Hypochromasia Moderate; MCH 26.9 pg (25.0-35.0); MCHC 31.2 g/dL (31.0-37.0); MCV 86.1 fL (80.0-100.0); Mean Platelet Volume 8.1; Poikilocytosis Slight; RBC 3.11 m/uL (4.30-5.90); RDW 18.7 % (11.5-15.5); WBC 5.2 k/uL (3.8-10.6)
[2017-07-27 08:20] LABS: HGB 8.4 gm/dL (13.0-17.5)
[2017-07-27 08:54] LABS: Albumin 3.1 g/dL (3.5-5.0); Calcium 7.3 mg/dL (8.4-10.2); Potassium 4.6 mmol/L (3.5-5.1); Total Bilirubin 0.7 mg/dL (0.2-1.3); Total Protein 5.6 g/dL (6.3-8.2)
[2017-07-27] MEDS ORDERED: SERTRALINE 25 MG TAB PO SCH (09:00)
[2017-07-27] MEDS ORDERED: PANTOPRAZOLE 40 MG/10 ML VIAL IV SCH (09:00)
[2017-07-27] MEDS: MAGNESIUM OXIDE 400 MG TAB PO SCH ×3 (09:48→19:32)
[2017-07-27] MEDS: levETIRAcetam ORAL SOLN 500 MG/5 ML CUP PO SCH ×2 (09:48→09:58)
[2017-07-27] MEDS: VALPROIC ACID ORAL SOLN 250 MG/5 ML CUP PO SCH ×3 (09:49→19:33)
[2017-07-27] MEDS: CALCIUM CARB-VIT D 500MG-200UN 1 EACH TAB PO SCH ×4 (09:49→21:16)
[2017-07-27] MEDS: PANTOPRAZOLE 40 MG/10 ML VIAL IVP SCH ×2 (10:01→19:33)
[2017-07-27 10:04] LABS: Band Neutrophils % 4 %; Lymphocytes # (M) 1.87 k/uL (1.0-4.8); Metamyelocytes # (M) 0.05 k/uL (0); Metamyelocytes % 1 %; Monocytes # (M) 0.47 k/uL (0-1.0); Neutrophils % (M) 49 %; Nucleated Red Blood Cells 0 /100 WBC (0-0); Total Cells Counted 200
[2017-07-27 10:05] LABS: Toxic Granulation Present
[2017-07-27 10:06] LABS: Platelet Count 76 k/uL (150-450)
[2017-07-27] MEDS ORDERED: PNEUMOCOCCAL VACC-PNEUMOVAX 23 25 MCG/0.5 ML VIAL IM ONE (10:59)
[2017-07-27] MEDS ORDERED: INFLUENZA VACCINE (6 MOS+) 60 MCG/0.5 ML SYRINGE IM ONE (10:59)
[2017-07-27] MEDS ORDERED: CALCIUM GLUCONATE 2,000 MG in SODIUM CHLORIDE 0.9% 100 ML IVPB ONE (11:39)
[2017-07-27] MEDS: CALCITRIOL 0.25 MCG CAP PO SCH (12:28)
[2017-07-27] MEDS: THIAMINE 100 MG TAB PO SCH (12:44)
[2017-07-27] MEDS: levETIRAcetam IV 500 MG in SODIUM CHLORIDE 0.9% 100 ML IVPB SCH ×2 (12:45→20:13)
--- NOTE | 2017-07-27 13:01 | P.CONS ---
History of Present Illness - Reason for Consult Consult date: 07/27/17 GI bleed Requesting physician: Geo Carranza - History of Present Illness 47-year-old male well-known to the GI service with a history of bipolar depression, C. diff, seizure disorder, anemia, heavy alcoholism actively drinking prior to admission with underlying alcohol liver disease chronic, thrombocytopenia, esophageal stricture disease. Patient presented from [facility] reports of coffee-ground emesis and black colored bowel movements. Hemoglobin 7.8 decreased to 6.9 presently 8.4. Platelets 76,000. Received 1 unit of blood. No further episodes of coffee-ground emesis since admission. EGD July 2016 reported severe reflux esophagitis with multiple erosions distal esophageal stricture consistent with grade 4 reflux esophagitis and antral gastritis. Review of Systems Constitutional: Denies fever, chills, sweats, weight gain, or loss. HEENT: Negative for migraines, blurred vision or loss, earaches, drainage, tinnitus, oral mucosal lesions, dysphagia, or odynophagia. Cardiac: Hypertension. Negative for chest pain, arrhythmias, or palpitation. Respiratory: Negative for shortness of breath, hemoptysis, cough, or sputum production. Gastrointestinal: See HPI for pertinent findings. Genitourinary: Negative for hematuria, urgency, frequency, polyuria, dysuria, or penile discharge. Musculoskeletal: Negative for muscle aches, swelling, arthritis, and arthralgias. Neurologic: Seizure disorder. Negative for stroke or TIA. Endocrine: Negative for thyroid problems. Skin: Negative for rash or itching. Psychiatric: Anxiety bipolar depression. Past Medical History Past Medical History: GERD/Reflux, Hypertension, Liver Disease, Memory Impairment, Renal Disease, Seizure Disorder Additional Past Medical History / Comment(s): Alcoholism, alcoholic pancreatitis , alcoholic seizures and seizures as a child, as esophageal stricture and reflux esophagitis/erosions, CRUSH ALL PILLS, alcoholic dementia, thrombocytopenia, Cdiff colitis 2016, hypoglycemia, sinus problems. History of Any Multi-Drug Resistant Organisms: C-DIFF Year Discovered:: 07/02/2015 MDRO Source:: stool Past Surgical History: Adenoidectomy, Tonsillectomy Additional Past Surgical History / Comment(s): EGDs Past Anesthesia/Blood Transfusion Reactions: No Reported Reaction Smoking Status: Never smoker - Past Family History Father Family Medical History: Diabetes Mellitus Mother Family Medical History: Diabetes Mellitus, Deep Vein Thrombosis (DVT), Hypertension Sister(s) Family Medical History: Diabetes Mellitus Brother(s) Family Medical History: Diabetes Mellitus Medications and Allergies Home Medications Medication Instructions Recorded Confirmed Type Propranolol HCl 20 mg PO BID 06/30/15 07/26/17 History Folic Acid 1 mg PO DAILY 09/12/15 07/26/17 History Magnesium Chloride [Slow-Mag] 128 mg PO BID #120 tablet.er 01/05/16 07/26/17 Rx Thiamine [Vitamin B-1] 100 mg PO DAILY@1200 #30 tab 01/05/16 07/26/17 Rx Multivitamins, Thera [Multivitamin 1 tab PO DAILY@1200 07/10/16 07/26/17 History (formulary)] Ondansetron Odt [Zofran Odt] 4 mg PO Q8HR 07/26/17 07/26/17 History Sertraline HCl [Zoloft] 25 mg PO DAILY 07/26/17 07/26/17 History Sucralfate [Carafate] 1 gm PO QID 07/26/17 07/26/17 History Valproic Acid Oral Soln [Depakene 250 mg PO BID 07/26/17 07/26/17 History Syrup] levETIRAcetam 500 mg PO BID 07/26/17 07/26/17 History Allergies Allergy/AdvReac Type Severity Reaction Status Date / Time Penicillins Allergy Rash/Hives Verified 07/26/17 17:21 Physical Exam Vitals: Vital Signs Temp Pulse Pulse Resp BP BP Pulse Ox 07/27/17 08:24 97.4 F L 107 H 16 115/86 99 07/27/17 08:05 97.9 F 86 20 112/71 95 07/27/17 06:03 97.7 F 85 20 127/68 97 07/27/17 05:43 98.1 F 85 18 143/69 98 07/27/17 05:33 98.0 F 94 20 137/76 96 07/27/17 02:03 92 20 116/66 96 07/26/17 23:00 100 20 120/61 98 07/26/17 20:57 90 20 127/64 98 07/26/17 20:04 107 H 18 118/67 98 07/26/17 18:56 98.7 F 118 H 18 121/63 99 07/26/17 17:17 98.2 F 115 H 18 155/84 98 Intake and Output 07/26/17 07/27/17 07/27/17 22:59 06:59 14:59 Intake Total 0 310 Balance 0 310 Intake: Blood Product 0 310 Rc Pheresis As-3 Unit 0 310 [id number] Other: Weight 58.967 kg General appearance: The patient is alert, oriented, in no acute distress. HET: Head is normocephalic and atraumatic. Pupils are equal and reactive. Oropharynx is clear without lesions. Neck: Supple without lymphadenopathy. Trachea midline. Heart: S1 S2. Regular rate and rhythm. Lungs: No crackles or wheezes are heard. Abdomen: Soft, nontender, nondistended with bowel sounds. No peritoneal signs. No palpable organomegaly or masses. Extremities: Palmar erythema. Normal skin color and turgor. No cyanosis, rash , ulceration, clubbing, or edema. Radial and pedal pulses are 2/4 bilaterally. Neurological: No focal deficits. Strength and sensation are grossly intact. Results CBC & Chem 7: 07/27/17 08:05 07/27/17 08:05 Labs: Abnormal Lab Results - Last 24 Hours (Table) 07/26/17 07/26/17 07/26/17 Range/Units 18:15 18:15 23:56 RBC 2.90 L (4.30-5.90) m/uL Hgb 7.8 L (13.0-17.5) gm/dL Hct 25.1 L (39.0-53.0) % MCHC (31.0-37.0) g/dL RDW 19.5 H (11.5-15.5) % Plt Count 81 L (150-450) k/uL Lymphocytes # 0.6 L (1.0-4.8) k/uL Metamyelocytes # (Man) (0) k/uL Sodium 146 H (137-145) mmol/L Carbon Dioxide 19 L (22-30) mmol/L BUN 46 H (9-20) mg/dL Creatinine 2.64 H (0.66-1.25) mg/dL Glucose 117 H (74-99) mg/dL Calcium 6.0 L* (8.4-10.2) mg/dL ALT 18 L (21-72) U/L Total Protein 5.9 L (6.3-8.2) g/dL Albumin (3.5-5.0) g/dL Amylase 178 H (30-110) U/L Crossmatch See Detail 07/27/17 07/27/17 07/27/17 Range/Units 00:00 00:00 08:05 RBC 2.66 L 3.11 L (4.30-5.90) m/uL Hgb 6.9 L* 8.4 L D (13.0-17.5) gm/dL Hct 22.7 L 26.8 L (39.0-53.0) % MCHC 30.4 L (31.0-37.0) g/dL RDW 19.4 H 18.7 H (11.5-15.5) % Plt Count 85 L 76 L (150-450) k/uL Lymphocytes # (1.0-4.8) k/uL Metamyelocytes # (Man) 0.05 H (0) k/uL Sodium (137-145) mmol/L Carbon Dioxide (22-30) mmol/L BUN 47 H (9-20) mg/dL Creatinine 2.40 H (0.66-1.25) mg/dL Glucose 150 H (74-99) mg/dL Calcium 7.0 L (8.4-10.2) mg/dL ALT (21-72) U/L Total Protein (6.3-8.2) g/dL Albumin (3.5-5.0) g/dL Amylase (30-110) U/L Crossmatch 07/27/17 Range/Units 08:05 RBC (4.30-5.90) m/uL Hgb (13.0-17.5) gm/dL Hct (39.0-53.0) % MCHC (31.0-37.0) g/dL RDW (11.5-15.5) % Plt Count (150-450) k/uL Lymphocytes # (1.0-4.8) k/uL Metamyelocytes # (Man) (0) k/uL Sodium 146 H (137-145) mmol/L Carbon Dioxide (22-30) mmol/L BUN 45 H (9-20) mg/dL Creatinine 1.72 H (0.66-1.25) mg/dL Glucose 107 H (74-99) mg/dL Calcium 7.3 L (8.4-10.2) mg/dL ALT (21-72) U/L Total Protein 5.6 L (6.3-8.2) g/dL Albumin 3.1 L (3.5-5.0) g/dL Amylase (30-110) U/L Crossmatch Assessment and Plan (1) Upper GI bleed Narrative/Plan: possible peptic ulcer disease possible reflux esophagitis alcohol gastritis possible esophageal varices with underlying history of alcohol liver disease. Current Visit: Yes Status: Acute Code(s): K92.2 - GASTROINTESTINAL HEMORRHAGE, UNSPECIFIED SNOMED Code(s): 00235711 (2) Acute blood loss anemia Current Visit: Yes Status: Acute Code(s): D62 - ACUTE POSTHEMORRHAGIC ANEMIA SNOMED Code(s): 566892982 (3) Chronic anemia Current Visit: Yes Status: Acute Code(s): D64.9 - ANEMIA, UNSPECIFIED SNOMED Code(s): 012967399 (4) Alcohol dependence Current Visit: No Status: Acute Code(s): F10.20 - ALCOHOL DEPENDENCE, UNCOMPLICATED SNOMED Code(s): 24693199 (5) Coffee ground emesis Current Visit: No Status: Acute Code(s): K92.0 - HEMATEMESIS SNOMED Code(s ): 485969409 Plan: 1. Protonix 40 mg IV twice daily. GI cocktail. 2. CBC every 6 hours. 3. Clear liquids. Nothing by mouth after midnight for EGD evaluation tomorrow. 4. Continue IV Sandostatin. [employer] consultant has discussed the risks, benefits and alternative therapies for the above-mentioned procedure and for both sedation/analgesia as well as necessary blood product administration, if indicated, as they pertain to this patient. The patient has indicated understanding and acceptance of the risks and procedures discussed. Thank you for this kind referral and the opportunity to participate in the care of your patient. This consultation was discussed with Dr. Alabrado. The impression and plan of care have been directed as dictated.
--- NOTE | 2017-07-27 13:16 | P.PN ---
Subjective Progress Note Date: 07/27/17 Principal diagnosis: The patient is a 47-year-old male that was transferred here from [facility] with concerns for GI bleed after presented with reports of coffee-ground emesis and black colored stools on presentation his hemoglobin was 7.8 and got as low as 6.9, review of records indicated he had a EGD and July 30 that showed severe reflux esophagitis with multiple erosions and distal esophageal stricture consistent with a grade 4 esophagitis and antral gastritis. The patient reports a history of seizure disorder and liver cirrhosis, and also has chronic thrombocytopenia due to his alcoholism Patient reporting ongoing nausea although states that it is improved, having some retching and bilious emesis, and some abdominal discomfort. No acute events overnight Objective - Vital Signs Vital signs: Vital Signs Temp 97.4 F L 07/27/17 08:24 Pulse 107 H 07/27/17 08:24 Resp 16 07/27/17 08:24 BP 115/86 07/27/17 08:24 Pulse Ox 99 07/27/17 08:24 Intake & Output 07/26/17 07/27/17 07/27/17 18:59 06:59 18:59 Intake Total 0 310 Balance 0 310 Weight 58.967 kg Intake: Blood Product 0 310 Rc Pheresis As-3 Unit 0 310 [id number] - Exam Constitutional: No acute distress, conversant, pleasant Eyes: Anicteric sclerae, moist conjunctiva, no lid-lag, PERRLA ENMT: NC/AT,Oropharynx clear, no erythema, exudates Neck:Supple, FROM, no masses, or JVD, No carotid bruits; No thyromegaly Lungs: Clear to auscultation, Clear to percussion, Normal respiratory effort, no accessory muscle use Cardiovascular: Heart regular in rate and rhythm, No murmurs, gallops, or rubs no peripheral edema Abdominal: Soft Nontender, nom distended, no guarding, no rebound or rigidity, Normoactive bowel sounds No hepatomegaly, No splenomegaly, No palpable mass No abdominal wall hernia noted Skin: Normal temperature, tone, texture, turgor, No induration No subcutaneous nodules, No rash, lesions, No ulcers Extremities:No digital cyanosis No clubbing, Pedal pulses intact and symmetrical Radial pulses intact and symmetrical Normal gait and station, No calf tenderness Psychiatric: Alert and oriented to person, place and time, Appropriate affect Intact judgement Neuro: Muscles Strength 5/5 in all 4 extremities, Sensation to light touch grossly present throughout, Cranial nerves II-XII grossly intact. No focal sensory deficits - Labs CBC & Chem 7: 07/27/17 08:05 07/27/17 08:05 Labs: Abnormal Lab Results - Last 24 Hours (Table) 07/26/17 07/26/17 07/26/17 Range/Units 18:15 18:15 23:56 RBC 2.90 L (4.30-5.90) m/uL Hgb 7.8 L (13.0-17.5) gm/dL Hct 25.1 L (39.0-53.0) % MCHC (31.0-37.0) g/dL RDW 19.5 H (11.5-15.5) % Plt Count 81 L (150-450) k/uL Lymphocytes # 0.6 L (1.0-4.8) k/uL Metamyelocytes # (Man) (0) k/uL Sodium 146 H (137-145) mmol/L Carbon Dioxide 19 L (22-30) mmol/L BUN 46 H (9-20) mg/dL Creatinine 2.64 H (0.66-1.25) mg/dL Glucose 117 H (74-99) mg/dL Calcium 6.0 L* (8.4-10.2) mg/dL ALT 18 L (21-72) U/L Total Protein 5.9 L (6.3-8.2) g/dL Albumin (3.5-5.0) g/dL Amylase 178 H (30-110) U/L Crossmatch See Detail 07/27/17 07/27/17 07/27/17 Range/Units 00:00 00:00 08:05 RBC 2.66 L 3.11 L (4.30-5.90) m/uL Hgb 6.9 L* 8.4 L D (13.0-17.5) gm/dL Hct 22.7 L 26.8 L (39.0-53.0) % MCHC 30.4 L (31.0-37.0) g/dL RDW 19.4 H 18.7 H (11.5-15.5) % Plt Count 85 L 76 L (150-450) k/uL Lymphocytes # (1.0-4.8) k/uL Metamyelocytes # (Man) 0.05 H (0) k/uL Sodium (137-145) mmol/L Carbon Dioxide (22-30) mmol/L BUN 47 H (9-20) mg/dL Creatinine 2.40 H (0.66-1.25) mg/dL Glucose 150 H (74-99) mg/dL Calcium 7.0 L (8.4-10.2) mg/dL ALT (21-72) U/L Total Protein (6.3-8.2) g/dL Albumin (3.5-5.0) g/dL Amylase (30-110) U/L Crossmatch 07/27/17 Range/Units 08:05 RBC (4.30-5.90) m/uL Hgb (13.0-17.5) gm/dL Hct (39.0-53.0) % MCHC (31.0-37.0) g/dL RDW (11.5-15.5) % Plt Count (150-450) k/uL Lymphocytes # (1.0-4.8) k/uL Metamyelocytes # (Man) (0) k/uL Sodium 146 H (137-145) mmol/L Carbon Dioxide (22-30) mmol/L BUN 45 H (9-20) mg/dL Creatinine 1.72 H (0.66-1.25) mg/dL Glucose 107 H (74-99) mg/dL Calcium 7.3 L (8.4-10.2) mg/dL ALT (21-72) U/L Total Protein 5.6 L (6.3-8.2) g/dL Albumin 3.1 L (3.5-5.0) g/dL Amylase (30-110) U/L Crossmatch Assessment and Plan (1) Acute blood loss anemia Narrative/Plan: * Hemoglobin up to 8.4 from 6.9 after having 1 unit packed RBC transfusion * We'll continue to monitor, likely secondary to problem number #2 due to severe esophagitis and possible gastritis * GI doctor Verena has been consulted for further recommendations * Continue with PPI therapy, we will discontinue somatostatin as the patient does not have a history of variceal bleeds Current Visit: Yes Status: Acute Code(s): D62 - ACUTE POSTHEMORRHAGIC ANEMIA SNOMED Code(s): 804619918 (2) Upper GI bleed Current Visit: Yes Status: Acute Code(s): K92.2 - GASTROINTESTINAL HEMORRHAGE, UNSPECIFIED SNOMED Code(s): 75157042 (3) Alcohol dependence Current Visit: No Status: Acute Code(s): F10.20 - ALCOHOL DEPENDENCE, UNCOMPLICATED SNOMED Code(s): 87007189 (4) GERD with esophagitis Current Visit: No Status: Chronic Code(s): K21.0 - GASTRO-ESOPHAGEAL REFLUX DISEASE WITH ESOPHAGITIS SNOMED Code(s): 750240781 (5) Acute kidney injury Narrative/Plan: * Creatinine trending down from 2.4-1.7 continue with clear liquids we'll initiate normal saline 75 mL an hour Current Visit: Yes Status: Acute Code(s): N17.9 - ACUTE KIDNEY FAILURE, UNSPECIFIED SNOMED Code(s): 38229550 (6) Hypocalcemia Narrative/Plan: * Replace with 2 g of IV calcium and recheck on tomorrow's labs Current Visit: Yes Status: Acute Priority: High Code(s): E83.51 - HYPOCALCEMIA SNOMED Code(s): 7269749
[2017-07-27 14:52] LABS: Anisocytosis Slight; HCT 28.3 % (39.0-53.0); HGB 9.1 gm/dL (13.0-17.5); Hypochromasia Moderate; MCH 27.5 pg (25.0-35.0); MCHC 32.1 g/dL (31.0-37.0); MCV 85.7 fL (80.0-100.0); Mean Platelet Volume 7.4; Poikilocytosis Moderate; RDW 18.4 % (11.5-15.5); WBC 6.1 k/uL (3.8-10.6)
[2017-07-27 14:55] LABS: Platelet Count 77 k/uL (150-450)
[2017-07-27 17:18] LABS: Glucose,Whole Blood 98 mg/dL (75-99)
[2017-07-27] MEDS: MAG HYDROX/AL HYDROX/SIMETH 30 ML, LIDOCAINE VISCOUS 30 ML, diphenhydrAMINE ELIXIR 75 M... PO SCH ×8 (18:12→21:15)
[2017-07-27] MEDS: SODIUM CHLORIDE 0.9% 1,000 ML IV SCH (18:13)
[2017-07-27] MEDS: PROPRANOLOL 20 MG TAB PO SCH (19:33)
[2017-07-27] MEDS: guaiFENesin 600 MG TABLET.ER PO SCH (19:34)
[2017-07-27 20:13] LABS: Anisocytosis Slight; HCT 29.8 % (39.0-53.0); HGB 9.7 gm/dL (13.0-17.5); Hypochromasia Slight; MCHC 32.6 g/dL (31.0-37.0); Mean Platelet Volume 8.5; Platelet Count 83 k/uL (150-450); Poikilocytosis Moderate; RBC 3.47 m/uL (4.30-5.90); RDW 18.7 % (11.5-15.5); WBC 6.6 k/uL (3.8-10.6)
[2017-07-27 20:28] LABS: Nucleated Red Blood Cells 0 /100 WBC (0-0)
[2017-07-27 20:30] LABS: Band Neutrophils % 15 %; Eosinophils # (M) 0.07 k/uL (0-0.7); Lymphocytes # (M) 1.98 k/uL (1.0-4.8); Monocytes # (M) 0.73 k/uL (0-1.0); Neutrophils % (M) 45 %; Total Cells Counted 200
[2017-07-27 20:31] LABS: Hypochromasia (M) Present
[2017-07-27 20:32] LABS: Ovalocytes Present; Target Cells Present
[2017-07-27 20:48] LABS: Glucose,Whole Blood 112 mg/dL (75-99)
[2017-07-28 01:15] LABS: Anisocytosis Slight; HCT 29.4 % (39.0-53.0); HGB 9.4 gm/dL (13.0-17.5); Hypochromasia Slight; MCH 27.5 pg (25.0-35.0); MCHC 31.9 g/dL (31.0-37.0); MCV 86.2 fL (80.0-100.0); Mean Platelet Volume 8.5; Poikilocytosis Moderate; RBC 3.41 m/uL (4.30-5.90); RDW 18.9 % (11.5-15.5); WBC 5.7 k/uL (3.8-10.6)
[2017-07-28 01:18] LABS: Platelet Count 75 k/uL (150-450)
[2017-07-28 01:38] LABS: Band Neutrophils % 2 %; Lymphocytes # (M) 1.71 k/uL (1.0-4.8); Monocytes # (M) 0.51 k/uL (0-1.0); Neutrophils % (M) 59 %; Nucleated Red Blood Cells 0 /100 WBC (0-0); Total Cells Counted 100
[2017-07-28] MEDS: SODIUM CHLORIDE 0.9% 1,000 ML IV SCH (04:26)
[2017-07-28 05:49] LABS: Glucose,Whole Blood 99 mg/dL (75-99)
[2017-07-28 07:43] LABS: Anisocytosis Slight; HCT 29.4 % (39.0-53.0); HGB 9.4 gm/dL (13.0-17.5); Hypochromasia Moderate; MCH 27.2 pg (25.0-35.0); MCHC 31.9 g/dL (31.0-37.0); MCV 85.2 fL (80.0-100.0); Mean Platelet Volume 8.6; Poikilocytosis Moderate; RBC 3.45 m/uL (4.30-5.90); RDW 18.5 % (11.5-15.5); WBC 5.2 k/uL (3.8-10.6)
[2017-07-28 07:45] LABS: Platelet Count 74 k/uL (150-450)
[2017-07-28 07:59] LABS: Lymphocytes # (M) 1.14 k/uL (1.0-4.8); Metamyelocytes # (M) 0.05 k/uL (0); Metamyelocytes % 1 %; Monocytes # (M) 0.47 k/uL (0-1.0); Neutrophils % (M) 62 %; Nucleated Red Blood Cells 0 /100 WBC (0-0)
[2017-07-28 08:00] LABS: Band Neutrophils % 7 %; Total Cells Counted 200
[2017-07-28] MEDS: MAGNESIUM OXIDE 400 MG TAB PO SCH ×2 (08:11→21:13)
[2017-07-28] MEDS: guaiFENesin 600 MG TABLET.ER PO SCH ×2 (08:11→21:12)
[2017-07-28] MEDS: PANTOPRAZOLE 40 MG/10 ML VIAL IVP SCH ×2 (08:11→21:14)
[2017-07-28] MEDS: PROPRANOLOL 20 MG TAB PO SCH ×2 (08:11→21:12)
[2017-07-28] MEDS: CALCITRIOL 0.25 MCG CAP PO SCH (08:11)
[2017-07-28] MEDS: VALPROIC ACID ORAL SOLN 250 MG/5 ML CUP PO SCH ×2 (08:11→21:14)
[2017-07-28] MEDS: CALCIUM CARB-VIT D 500MG-200UN 1 EACH TAB PO SCH ×3 (08:11→21:12)
[2017-07-28] MEDS: MAG HYDROX/AL HYDROX/SIMETH 30 ML, LIDOCAINE VISCOUS 30 ML, diphenhydrAMINE ELIXIR 75 M... PO SCH ×12 (08:12→21:14)
[2017-07-28] MEDS: levETIRAcetam IV 500 MG in SODIUM CHLORIDE 0.9% 100 ML IVPB SCH ×2 (08:20→21:34)
[2017-07-28 08:26] LABS: ALT 22 U/L (21-72); AST 36 U/L (17-59); Alkaline Phosphatase 81 U/L (38-126); Anion Gap 11 mmol/L; Blood Urea Nitrogen 26 mg/dL (9-20); Calcium 8.8 mg/dL (8.4-10.2); Carbon Dioxide 28 mmol/L (22-30); Chloride 109 mmol/L (98-107); Glucose 89 mg/dL (74-99); Potassium 4.8 mmol/L (3.5-5.1); Sodium 148 mmol/L (137-145); Total Bilirubin 0.5 mg/dL (0.2-1.3); Total Protein 5.5 g/dL (6.3-8.2)
--- NOTE | 2017-07-28 11:55 | P.PN ---
Subjective Progress Note Date: 07/28/17 Principal diagnosis: The patient is a 47-year-old male that was transferred here from [facility] with concerns for GI bleed after presented with reports of coffee-ground emesis and black colored stools on presentation his hemoglobin was 7.8 and got as low as 6.9, review of records indicated he had a EGD and July 30 that showed severe reflux esophagitis with multiple erosions and distal esophageal stricture consistent with a grade 4 esophagitis and antral gastritis. The patient reports a history of seizure disorder and liver cirrhosis, and also has chronic thrombocytopenia due to his alcoholism Patient reporting some improvement in his nausea and retching. Does have some abdominal discomfort reported as mild, also states that he had a dark bowel movement this morning. No acute events overnight Objective - Vital Signs Vital signs: Vital Signs Temp 97.1 F L 07/28/17 08:00 Pulse 70 07/28/17 08:00 Resp 16 07/28/17 08:00 BP 162/77 07/28/17 08:00 Pulse Ox 97 07/28/17 05:00 Intake & Output 07/27/17 07/28/17 07/28/17 18:59 06:59 18:59 Intake Total 460 1205 Output Total 600 425 Balance -140 780 Weight 40.5 kg Intake: Intake, IV Titration 150 1205 Amount Sodium Chloride 0.9% 1, 150 705 000 ml @ 75 mls/hr IV . [id number] RADHA Rx#:[id number] levETIRAcetam IV 500 mg 500 In Sodium Chloride 0.9% 100 ml @ 400 mls/hr IVPB Q12HR RADHA Rx#:[id number] Blood Product 310 Rc Pheresis As-3 Unit 310 [id number] Output: Urine 600 425 Other: Voiding Method Urinal Urinal # Voids 1 # Bowel Movements 1 - Exam Constitutional: No acute distress, conversant, pleasant Eyes: Anicteric sclerae, moist conjunctiva, no lid-lag, PERRLA ENMT: NC/AT,Oropharynx clear, no erythema, exudates Neck:Supple, FROM, no masses, or JVD, No carotid bruits; No thyromegaly Lungs: Clear to auscultation, Clear to percussion, Normal respiratory effort, no accessory muscle use Cardiovascular: Heart regular in rate and rhythm, No murmurs, gallops, or rubs no peripheral edema Abdominal: Soft Nontender, nom distended, no guarding, no rebound or rigidity, Normoactive bowel sounds No hepatomegaly, No splenomegaly, No palpable mass No abdominal wall hernia noted Skin: Normal temperature, tone, texture, turgor, No induration No subcutaneous nodules, No rash, lesions, No ulcers Extremities:No digital cyanosis No clubbing, Pedal pulses intact and symmetrical Radial pulses intact and symmetrical Normal gait and station, No calf tenderness Psychiatric: Alert and oriented to person, place and time, Appropriate affect Intact judgement Neuro: Muscles Strength 5/5 in all 4 extremities, Sensation to light touch grossly present throughout, Cranial nerves II-XII grossly intact. No focal sensory deficits - Labs CBC & Chem 7: 07/28/17 07:20 07/28/17 07:20 Labs: Abnormal Lab Results - Last 24 Hours (Table) 07/27/17 07/27/17 07/27/17 Range/Units 14:25 19:52 20:47 RBC 3.30 L 3.47 L (4.30-5.90) m/uL Hgb 9.1 L 9.7 L (13.0-17.5) gm/dL Hct 28.3 L 29.8 L (39.0-53.0) % RDW 18.4 H 18.7 H (11.5-15.5) % Plt Count 77 L 83 L (150-450) k/uL Metamyelocytes # (Man) (0) k/uL Sodium (137-145) mmol/L Chloride (98-107) mmol/L BUN (9-20) mg/dL POC Glucose (mg/dL) 112 H (75-99) mg/dL Total Protein (6.3-8.2) g/dL Albumin (3.5-5.0) g/dL 07/28/17 07/28/17 07/28/17 Range/Units 00:55 07:20 07:20 RBC 3.41 L 3.45 L (4.30-5.90) m/uL Hgb 9.4 L 9.4 L (13.0-17.5) gm/dL Hct 29.4 L 29.4 L (39.0-53.0) % RDW 18.9 H 18.5 H (11.5-15.5) % Plt Count 75 L 74 L (150-450) k/uL Metamyelocytes # (Man) 0.05 H (0) k/uL Sodium 148 H (137-145) mmol/L Chloride 109 H (98-107) mmol/L BUN 26 H (9-20) mg/dL POC Glucose (mg/dL) (75-99) mg/dL Total Protein 5.5 L (6.3-8.2) g/dL Albumin 3.0 L (3.5-5.0) g/dL Assessment and Plan (1) Acute blood loss anemia Narrative/Plan: * Hemoglobin holding stable at 9.4 after having 1 unit packed RBC transfusion * We'll continue to monitor, likely secondary to problem number #2 due to severe esophagitis and possible gastritis * GI doctor Verena planning to take the patient for EGD today * Continue with PPI therapy, we will discontinue somatostatin as the patient does not have a history of variceal bleeds Current Visit: Yes Status: Acute Code(s): D62 - ACUTE POSTHEMORRHAGIC ANEMIA SNOMED Code(s): 074084374 (2) Upper GI bleed Current Visit: Yes Status: Acute Code(s): K92.2 - GASTROINTESTINAL HEMORRHAGE, UNSPECIFIED SNOMED Code(s): 46313806 (3) Alcohol dependence Current Visit: No Status: Acute Code(s): F10.20 - ALCOHOL DEPENDENCE, UNCOMPLICATED SNOMED Code(s): 27469970 (4) GERD with esophagitis Current Visit: No Status: Chronic Code(s): K21.0 - GASTRO-ESOPHAGEAL REFLUX DISEASE WITH ESOPHAGITIS SNOMED Code(s): 203543414 (5) Acute kidney injury Narrative/Plan: * Likely prerenal secondary to dehydration * Creatinine trending down from 2.4- back to normal * continue with clear liquids we'll initiate 1/2 normal saline 75 mL an hour Current Visit: Yes Status: Resolved Code(s): N17.9 - ACUTE KIDNEY FAILURE, UNSPECIFIED SNOMED Code(s): 28453789 (6) Hypocalcemia Narrative/Plan: * Resolved after replacement with IV calcium Current Visit: Yes Status: Resolved Priority: High Code(s): E83.51 - HYPOCALCEMIA SNOMED Code(s): 5508789
[2017-07-28 12:14] LABS: Glucose,Whole Blood 90 mg/dL (75-99)
[2017-07-28] MEDS ORDERED: LIDOCAINE 1% INJ 10MG/ML (20 ML MDV) ONE (12:51)
[2017-07-28] MEDS ORDERED: PROPOFOL 10 MG/ML 20 ML VIAL IV ONE (12:51)
[2017-07-28] MEDS ORDERED: IV FLUID CONTINUATION 1,000 ML IV ONE (12:52)
--- NOTE | 2017-07-28 13:22 | P.PCN ---
Date of Procedure: 07/28/17 Procedure(s) Performed: BRIEF HISTORY: Patient is a 47-year-old, pleasant, male, admitted to the hospital with acute upper GI bleed. His and scheduled for an upper endoscopy to evaluate further. He had an EGD done in July 2016 for the same reason and was noted to have severe GERD with esophageal stricture and esophagitis. PROCEDURE PERFORMED: Esophagogastroduodenoscopy with balloon dilation. PREOPERATIVE DIAGNOSIS: Upper GI bleed. IV sedation per anesthesia. PROCEDURE: After informed consent was obtained, the patient was brought into the endoscopy unit. IV sedation was administered by Anesthesia under continuous monitoring. Initially the Olympus GIF-140 video endoscope was inserted into the mouth. Esophagus intubated without any difficulty. It was gradually advanced into the distal esophagus and the focus scope could not be advanced further because of the tight distal esophageal stricture at 35 cm from the incisors. At this time I proceeded with a balloon dilation using 8-10 mm TTS balloon as sequential fashion for total of 90 seconds. Following this I was able to advance the scope with gentle pressure into the stomach and duodenum and carefully examined. The bulb and the second part of the duodenum appeared normal. The scope at this time was withdrawn to the stomach, adequately insufflated with air, and upon careful examination, mucosa of the antrum, body, cardia and the fundus appeared normal. The scope was then withdrawn into the esophagus. The GE junction was located at 35 cm from the incisors. There was some bleeding noted at the site of dilation. The esophagus proximal to the stricture had ulcerations and erosions consistent with LA grade B reflux esophagitis. The proximal esophagus appeared normal and the patient tolerated the procedure well. IMPRESSION: 1. Distal esophageal stricture status post balloon dilation using 8-10 mm TTS balloon as described above. 2. Erosions and ulcerations in the distal esophagus consistent with LA grade D reflux esophagitis. RECOMMENDATIONS: The findings of this examination were discussed with the patient area and he will continue on Protonix 40 mg twice daily and will be started on clear liquid diet today..
[2017-07-28] MEDS: THIAMINE 100 MG TAB PO SCH (15:11)
[2017-07-28] MEDS: SODIUM CHLORIDE 0.45% 1,000 ML IV SCH (15:12)
[2017-07-28 16:45] LABS: Glucose,Whole Blood 76 mg/dL (75-99)
[2017-07-28] MEDS: LORazepam 2 MG/ML INJ IV PRN (21:30)
[2017-07-28 22:14] LABS: Glucose,Whole Blood 96 mg/dL (75-99)
[2017-07-29] MEDS: SODIUM CHLORIDE 0.45% 1,000 ML IV SCH ×2 (01:47→14:13)
[2017-07-29] MEDS: LORazepam 2 MG/ML INJ IV PRN ×9 (02:11→23:56)
--- NOTE | 2017-07-29 05:09 | P.PN ---
Progress Note - Text Progress Note Date: 07/29/17 Hospitalist Interval Note CTSP: increasing agitation despite CIWA protocol Patient seen and examined at bedside. Per nursing confusion has been worsening through out the evening. He has required increasing doses of ativan and has had worsening agitation and is now requiring soft restraints to maintain safety. 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 He can then tell me about the bed alarm that he had. But then gets confused and trails off. He is able to follow simple commands but is easily distracted. Vital signs reviewed General: non toxic, moderated distress, appears at stated age Derm: warm, dry, no diaphoresis Head: atraumatic, normocephalic, symmetric Eyes: EOMI, no lid lag, anicteric sclera Mouth: no lip lesion, mucus membranes dry Cardiovascular: S1S2 reg, no murmur, positive posterior tibial pulse bilateral, Lungs: CTA bilateral, no rhonchi, no rales , no accessory muscle use Neuro: CN II-XI grossly intact, no focal neuro deficits, no tremors, increased motor agitation Psych: Alert , oriented to self, appropriate affect Assessment/Plan: Acute encephalopathy - likely due to DTs, However no diaphoresis/no tachycardia/no elevated BP/tremor /no vomiting - Ativan 1 mg IVP X 1now - CT brain - Stat CBC, CMP, Ammonia - soft restraints - if labs negative will give an additional dose of ativan - if confusion worsens or becomes tachycardic/hypertensive will need to move to ICU for close monitoring - will continue to follow patient closely.
[2017-07-29] MEDS ORDERED: LORazepam 2 MG/ML INJ IV STA ×2 (05:16→06:14)
[2017-07-29 05:32] LABS: Anisocytosis Slight; HGB 9.4 gm/dL (13.0-17.5); Hypochromasia Marked; MCHC 30.3 g/dL (31.0-37.0); MCV 89.1 fL (80.0-100.0); Mean Platelet Volume 9.5; Poikilocytosis Slight; RBC 3.48 m/uL (4.30-5.90); RDW 18.8 % (11.5-15.5); WBC 5.7 k/uL (3.8-10.6)
[2017-07-29 05:36] LABS: Platelet Count 83 k/uL (150-450)
[2017-07-29 05:42] LABS: INR 1.1 (<1.2); Prothrombin Time 11.1 sec (9.0-12.0)
[2017-07-29 05:45] LABS: ALT 18 U/L (21-72); AST 60 U/L (17-59); Albumin 3.2 g/dL (3.5-5.0); Alkaline Phosphatase 123 U/L (38-126); Anion Gap 10 mmol/L; Blood Urea Nitrogen 14 mg/dL (9-20); Calcium 8.9 mg/dL (8.4-10.2); Carbon Dioxide 28 mmol/L (22-30); Chloride 104 mmol/L (98-107); Glucose 85 mg/dL (74-99); Magnesium 1.3 mg/dL (1.6-2.3); Potassium 3.6 mmol/L (3.5-5.1); Sodium 142 mmol/L (137-145); Total Bilirubin 0.5 mg/dL (0.2-1.3); Total Protein 5.9 g/dL (6.3-8.2)
--- NOTE | 2017-07-29 06:04 | CT ---
EXAM: CT Head Without Intravenous Contrast CLINICAL HISTORY: ITS.REASON CT Reason: confusion TECHNIQUE: Axial computed tomography images of the head/brain without intravenous contrast. CTDI is 57.4 mGy and DLP is 924.2 mGy-cm. This CT exam was performed using one or more of the following dose reduction techniques: automated exposure control, adjustment of the mA and/or kV according to patient size, and/or use of iterative reconstruction technique. COMPARISON: 10/31/13 FINDINGS: Brain: No acute intracranial hemorrhage, mass effect or midline shift. No significant white matter disease. Ventricles: Compensatory dilatation of the lateral ventricles likely due to central atrophy. Bones/joints: Unremarkable. No acute fracture. Soft tissues: Unremarkable. Sinuses: Mild mucosal thickening in the ethmoid sinuses. Mastoid air cells: Minimal opacification in the inferior right mastoid air cells. Other findings: Mild diffuse atrophy. IMPRESSION: No acute intracranial abnormality. Atrophy. Minimal opacification in the inferior right mastoid
[2017-07-29 06:08] LABS: Phosphorus 1.1 mg/dL (2.5-4.5)
--- NOTE | 2017-07-29 09:25 | P.PN ---
Subjective Progress Note Date: 07/29/17 Principal diagnosis: Acute upper GI bleed EtOH abuse Confused in restraints this morning alcohol withdrawal. Status post EGD for evaluation of coffee-ground emesis and anemia with findings of distal esophageal stricture status post balloon dilation with erosions and ulcerations in the distal esophagus consistent with LA grade D reflux esophagitis without evidence of varices. Hemoglobin 9.4. Platelet 83,000. INR 1.1. BUN 14. Creatinine 0.8. Phosphorus 1.1. Magnesium 1.3. Per nursing no evidence of hematemesis hematochezia or melena. Objective - Vital Signs Vital signs: Vital Signs Temp 97.7 F 07/29/17 04:30 Pulse 98 07/29/17 04:30 Resp 17 07/29/17 04:30 BP 142/89 07/29/17 04:30 Pulse Ox 98 07/29/17 04:30 Intake & Output 07/28/17 07/29/17 07/29/17 18:59 06:59 18:59 Intake Total 1300 Output Total 2 Balance 1300 -2 Weight 40.5 kg 59.1 kg Intake: IV 100 Oral 1200 Output: Urine 2 Other: Voiding Method Urinal Urinal # Voids 1 2 # Bowel Movements 1 - Exam General appearance: The patient is confused restrained.. HET: Head is normocephalic and atraumatic. Pupils are equal and reactive. Oropharynx is clear without lesions. Neck: Supple without lymphadenopathy. Trachea midline. Heart: S1 S2. Regular rate and rhythm. Lungs: No crackles or wheezes are heard. Abdomen: Soft, nontender, nondistended with bowel sounds. No peritoneal signs. No palpable organomegaly or masses. Extremities: Normal skin color and turgor. No cyanosis, rash, ulceration, clubbing, or edema. Radial and pedal pulses are 2/4 bilaterally. Neurological: No focal deficits. Strength and sensation are grossly intact. - Labs CBC & Chem 7: 07/29/17 05:17 07/29/17 05:17 Labs: Abnormal Lab Results - Last 24 Hours (Table) 07/29/17 07/29/17 Range/Units 05:17 05:17 RBC 3.48 L (4.30-5.90) m/uL Hgb 9.4 L (13.0-17.5) gm/dL Hct 31.0 L (39.0-53.0) % MCHC 30.3 L (31.0-37.0) g/dL RDW 18.8 H (11.5-15.5) % Plt Count 83 L (150-450) k/uL Phosphorus 1.1 L* (2.5-4.5) mg/dL Magnesium 1.3 L (1.6-2.3) mg/dL AST 60 H (17-59) U/L ALT 18 L (21-72) U/L Total Protein 5.9 L (6.3-8.2) g/dL Albumin 3.2 L (3.5-5.0) g/dL Assessment and Plan (1) Upper GI bleed Narrative/Plan: Status post EGD. Distal esophageal stricture status post balloon dilation LA grade D reflux esophagitis with ulcerations no evidence of varices as Current Visit: Yes Status: Acute Code(s): K92.2 - GASTROINTESTINAL HEMORRHAGE, UNSPECIFIED SNOMED Code(s): 62878954 (2) Acute blood loss anemia Current Visit: Yes Status: Acute Code(s): D62 - ACUTE POSTHEMORRHAGIC ANEMIA SNOMED Code(s): 909918123 (3) Chronic anemia Current Visit: Yes Status: Acute Code(s): D64.9 - ANEMIA, UNSPECIFIED SNOMED Code(s): 950985831 (4) Alcohol dependence Current Visit: No Status: Acute Code(s): F10.20 - ALCOHOL DEPENDENCE, UNCOMPLICATED SNOMED Code(s): 19819021 (5) Coffee ground emesis Current Visit: No Status: Acute Code(s): K92.0 - HEMATEMESIS SNOMED Code(s ): 965443184 (6) Alcohol withdrawal delirium Current Visit: Yes Status: Acute Code(s): F10.231 - ALCOHOL DEPENDENCE WITH WITHDRAWAL DELIRIUM SNOMED Code(s): 6252808 Plan: 1. Replacement of electrolytes. Supportive measures. Continue GI prophylaxis. CBC monitoring. Assessment and plan a care discussed with Dr. Pastrana
[2017-07-29] MEDS: levETIRAcetam IV 500 MG in SODIUM CHLORIDE 0.9% 100 ML IVPB SCH ×2 (09:33→23:44)
[2017-07-29] MEDS: SODIUM PHOSPHATE 10 MMOL in SODIUM CHLORIDE 0.9% 250 ML IVPB SCH ×3 (09:34→14:12)
[2017-07-29] MEDS: MAGNESIUM SULFATE-D5W PMX 1 GM in DEXTROSE/WATER 1 100ML.BAG IVPB SCH ×6 (09:34→14:17)
[2017-07-29] MEDS: CALCIUM CARB-VIT D 500MG-200UN 1 EACH TAB PO SCH ×3 (09:39→23:50)
[2017-07-29] MEDS: guaiFENesin 600 MG TABLET.ER PO SCH ×2 (09:39→23:50)
[2017-07-29] MEDS: MAGNESIUM OXIDE 400 MG TAB PO SCH ×2 (09:39→23:51)
[2017-07-29] MEDS: VALPROIC ACID ORAL SOLN 250 MG/5 ML CUP PO SCH ×2 (09:40→23:50)
[2017-07-29] MEDS: MAG HYDROX/AL HYDROX/SIMETH 30 ML, LIDOCAINE VISCOUS 30 ML, diphenhydrAMINE ELIXIR 75 M... PO SCH ×4 (09:40)
[2017-07-29] MEDS: PANTOPRAZOLE 40 MG/10 ML VIAL IVP SCH ×2 (09:40→23:41)
[2017-07-29] MEDS: PROPRANOLOL 20 MG TAB PO SCH ×2 (09:40→23:49)
[2017-07-29] MEDS: THIAMINE 100 MG TAB PO SCH (09:41)
--- NOTE | 2017-07-29 12:01 | XR ---
EXAMINATION TYPE: XR chest 1V DATE OF EXAM: 07/29/2017 COMPARISON: 07/10/2016 HISTORY: Altered mental status TECHNIQUE: Single frontal view of the chest is obtained. FINDINGS: There is no focal air space opacity, pleural effusion, or pneumothorax seen. The cardiac silhouette size is within normal limits. The osseous structures are intact. Left-sided subclavian c entral venous catheter is unchanged from the prior. IMPRESSION: No acute cardiopulmonary process.
[2017-07-29] MEDS ORDERED: CALCIUM GLUCONATE 2,000 MG in SODIUM CHLORIDE 0.9% 100 ML IVPB ONE (12:15)
[2017-07-29 12:27] LABS: Glucose,Whole Blood 76 mg/dL (75-99)
--- NOTE | 2017-07-29 13:21 | P.PN ---
Subjective Progress Note Date: 07/29/17 Principal diagnosis: The patient is a 47-year-old male that was transferred here from [facility] with concerns for GI bleed after presented with reports of coffee-ground emesis and black colored stools on presentation his hemoglobin was 7.8 and got as low as 6.9, review of records indicated he had a EGD and July 30 that showed severe reflux esophagitis with multiple erosions and distal esophageal stricture consistent with a grade 4 esophagitis and antral gastritis. The patient reports a history of seizure disorder and liver cirrhosis, and also has chronic thrombocytopenia due to his alcoholism Patient having increasing confusion overnight reports that he's in [place], was increasingly agitated and pulling at his central line, patient subsequently placed in 4 point soft restraints to maintain his safety and given intermittent doses of Ativan Stat CT of the head ordered overnight. Patient reporting that his nausea and abdominal pain have resolved Objective - Vital Signs Vital signs: Vital Signs Temp 97.1 F L 07/29/17 08:00 Pulse 76 07/29/17 08:00 Resp 17 07/29/17 04:30 BP 124/79 07/29/17 08:00 Pulse Ox 93 L 07/29/17 08:00 Intake & Output 07/28/17 07/29/17 07/29/17 18:59 06:59 18:59 Intake Total 1300 480 Output Total 2 Balance 1300 478 Weight 40.5 kg 59.1 kg Intake: IV 100 Oral 1200 480 Output: Urine 2 Other: Voiding Method Urinal Urinal # Voids 1 2 # Bowel Movements 1 - Exam Constitutional: No acute distress, conversant, pleasant Eyes: Anicteric sclerae, moist conjunctiva, no lid-lag, PERRLA ENMT: NC/AT,Oropharynx clear, no erythema, exudates Neck:Supple, FROM, no masses, or JVD, No carotid bruits; No thyromegaly Lungs: Clear to auscultation, Clear to percussion, Normal respiratory effort, no accessory muscle use Cardiovascular: Heart regular in rate and rhythm, No murmurs, gallops, or rubs no peripheral edema Abdominal: Soft Nontender, nom distended, no guarding, no rebound or rigidity, Normoactive bowel sounds No hepatomegaly, No splenomegaly, No palpable mass No abdominal wall hernia noted Skin: Normal temperature, tone, texture, turgor, No induration No subcutaneous nodules, No rash, lesions, No ulcers Extremities:No digital cyanosis No clubbing, Pedal pulses intact and symmetrical Radial pulses intact and symmetrical Normal gait and station, No calf tenderness Psychiatric: Oriented only to self pretty confused, Appropriate affect Intact judgement Neuro: Muscles Strength 5/5 in all 4 extremities, Sensation to light touch grossly present throughout, Cranial nerves II-XII grossly intact. No focal sensory deficits - Labs CBC & Chem 7: 07/29/17 05:17 07/29/17 05:17 Labs: Abnormal Lab Results - Last 24 Hours (Table) 07/29/17 07/29/17 Range/Units 05:17 05:17 RBC 3.48 L (4.30-5.90) m/uL Hgb 9.4 L (13.0-17.5) gm/dL Hct 31.0 L (39.0-53.0) % MCHC 30.3 L (31.0-37.0) g/dL RDW 18.8 H (11.5-15.5) % Plt Count 83 L (150-450) k/uL Phosphorus 1.1 L* (2.5-4.5) mg/dL Magnesium 1.3 L (1.6-2.3) mg/dL AST 60 H (17-59) U/L ALT 18 L (21-72) U/L Total Protein 5.9 L (6.3-8.2) g/dL Albumin 3.2 L (3.5-5.0) g/dL Assessment and Plan (1) Metabolic encephalopathy Narrative/Plan: * CT of the head showing no acute intracranial abnormality * Confusion likely secondary to alcohol withdrawal superimposed on multiple electrolyte abnormalities * Continue with Ativan when necessary with symptom triggered CIWA protocol Current Visit: Yes Status: Acute Code(s): G93.41 - METABOLIC ENCEPHALOPATHY SNOMED Code(s): 38009719 (2) Acute blood loss anemia Narrative/Plan: * Hemoglobin holding stable at 9.4 after having 1 unit packed RBC transfusion * We'll continue to monitor, likely secondary to problem number #2 * EGD showing ulcers and erosions in the distal esophagus consistent with grade D reflux esophagitis, also status post balloon dilatation of distal esophageal stricture * Continue with PPI therapy, Current Visit: Yes Status: Acute Code(s): D62 - ACUTE POSTHEMORRHAGIC ANEMIA SNOMED Code(s): 040781851 (3) Upper GI bleed Current Visit: Yes Status: Acute Code(s): K92.2 - GASTROINTESTINAL HEMORRHAGE, UNSPECIFIED SNOMED Code(s): 08782941 (4) GERD with esophagitis Narrative/Plan: * Grade D esophagitis Current Visit: No Status: Chronic Code(s): K21.0 - GASTRO-ESOPHAGEAL REFLUX DISEASE WITH ESOPHAGITIS SNOMED Code(s): 956494431 (5) Hypocalcemia Narrative/Plan: * Replace and recheck in the morning Current Visit: Yes Status: Acute Priority: High Code(s): E83.51 - HYPOCALCEMIA SNOMED Code(s): 4615213 (6) Hypomagnesemia Narrative/Plan: * Replace with 4 g we'll recheck in the morning Current Visit: Yes Status: Acute Code(s): E83.42 - HYPOMAGNESEMIA SNOMED Code(s): 595126037 (7) Alcohol dependence Current Visit: No Status: Acute Code(s): F10.20 - ALCOHOL DEPENDENCE, UNCOMPLICATED SNOMED Code(s): 00938608 (8) Acute kidney injury Narrative/Plan: * Likely prerenal secondary to dehydration * Creatinine trending down from 2.4- back to normal * continue with clear liquids we'll initiate 1/2 normal saline 75 mL an hour Current Visit: Yes Status: Resolved Code(s): N17.9 - ACUTE KIDNEY FAILURE, UNSPECIFIED SNOMED Code(s): 64058487
[2017-07-29 16:57] LABS: Glucose,Whole Blood 44 mg/dL (75-99)
[2017-07-29 17:06] LABS: Glucose,Whole Blood 61 mg/dL (75-99)
[2017-07-29] MEDS ORDERED: SODIUM CHLORIDE 0.9% 1,000 ML with MVI, ADULT NO.4 WITH VIT K 10 ML, THIAMINE 100 MG, F... IV ONE ×4 (17:13)
[2017-07-29] MEDS ORDERED: DEXTROSE 50%-WATER 50 ML SYRINGE IVP ONE ×3 (17:26→19:56)
[2017-07-29 17:48] LABS: Glucose,Whole Blood 59 mg/dL (75-99)
[2017-07-29 17:48] LABS: Glucose,Whole Blood 41 mg/dL (75-99)
[2017-07-29] MEDS ORDERED: DEXTROSE 5% IN WATER 1,000 ML with MVI, ADULT NO.4 WITH VIT K 10 ML, THIAMINE 100 MG, F... IV ONE ×4 (18:00)
[2017-07-29 18:04] LABS: Glucose,Whole Blood 51 mg/dL (75-99)
[2017-07-29 18:15] LABS: Glucose,Whole Blood 27 mg/dL (75-99)
[2017-07-29 18:46] LABS: Anion Gap 11 mmol/L; Blood Urea Nitrogen 10 mg/dL (9-20); Calcium 8.5 mg/dL (8.4-10.2); Carbon Dioxide 23 mmol/L (22-30); Chloride 105 mmol/L (98-107); Glucose 247 mg/dL (74-99); Magnesium 2.2 mg/dL (1.6-2.3); Potassium 3.8 mmol/L (3.5-5.1); Sodium 139 mmol/L (137-145)
[2017-07-29 18:48] LABS: Glucose,Whole Blood 185 mg/dL (75-99)
[2017-07-29 19:17] LABS: Calcium 8.7 mg/dL (8.4-10.2); Phosphorus 2.8 mg/dL (2.5-4.5)
[2017-07-29 20:29] LABS: Glucose,Whole Blood 62 mg/dL (75-99)
[2017-07-29] MEDS ORDERED: RX INFO: IV CONTRAST WAS GIVEN 1 EACH MISC MISCELLANE PRN (20:29)
--- NOTE | 2017-07-29 20:37 | XR ---
EXAMINATION: XR chest 1V DATE AND TIME: 07/29/2017 8:18 PM ORDERING PROVIDER: Katerine Mott CLINICAL INDICATION: r/o fluid overload TECHNIQUE: AP upright portable COMPARISON: 07/29/2017 at 11:34 AM DESCRIPTION: Left subclavian central line tip superimposed over the cavoatrial junction. EKG leads no jose. The lungs are clear and well-expanded. The pleural spaces are negative. Mildly enlarged cardiac silho uette noted, bones and soft tissues are unremarkable. IMPRESSION: NO ACUTE PROCESS.
[2017-07-29 20:39] LABS: Glucose,Whole Blood 114 mg/dL (75-99)
--- NOTE | 2017-07-29 20:53 | P.PN ---
Progress Note - Text Progress Note Date: 07/29/17 Hospitalist Interval Note Called to see patient and: Acute hypoxemia. Patient seen and examined at bedside with nursing present. On my arrival patient is on a face mask with an oxygen saturation of 72%. I requested a nonrebreather. Patient is alert to self only. I requested a stat blood glucose which was 62. One amp of D50 was ordered. ABG was ordered. Patient was hypoxic with respiratory distress and an emergent transfer to ICU was initiated. Over the course of today the patient had increasing CIWA score and this necessitated for additional milligrams of Ativan. He has become less alert and had worsening respiratory status. He was unable to answer additional questions. Vital signs reviewed General: ill appearing, moderate distress, appears at stated age Derm: warm, diaphoretic Head: atraumatic, normocephalic, symmetric Eyes: EOMI, no lid lag, anicteric sclera Mouth: no lip lesion, mucus membranes dry Cardiovascular: S1S2 tachy, no murmur, positive posterior tibial pulse bilateral , Lungs: decreased bs b/l, no rhonchi, no rales , + accessory muscle use Abdominal: soft, nontender to palpation, no guarding, no appreciable organomegaly Ext: no gross muscle atrophy, no edema, no contractures Neuro: CN II-XI grossly intact, no focal neuro deficits Psych: lethargic, confused. Assessment/Plan: 1. Acute hypoxic respiratory failure - ABG - NRB - stat CXR reviewed by myself and appears NAP - Will need CTA chest to r/o PE but must be more cooperative first as has not had chemical prophylaxis due to GI bleed - Transfer to ICU - check EKG and troponin - consult pulm/ critical care. 2. DTs - Continue with ativan - soft restraints - thiamine - folic acid and MVI - transfer to ICU with CIWA of 25 - seizure precautions 3. Hypoglycemia - D 50 X 1 - stop D 5 gtt and start D10 gtt - q 1 hours accucheck 4. Fevers - blood cultures - 1 from central 1 peripheral - CXR - UA and culture - check lactic acid A total of 40 minutes of critical care time was spent on this complex patient. D/W nursing and ICU nursing
[2017-07-29 21:22] LABS: Anisocytosis Slight; Basophils % (A) 0 %; Eosinophils # (A) 0.1 k/uL (0-0.7); Eosinophils % (A) 1 %; HCT 27.1 % (39.0-53.0); HGB 8.6 gm/dL (13.0-17.5); Hypochromasia Moderate; Lymphocytes # (A) 0.7 k/uL (1.0-4.8); Lymphocytes % (A) 12 %; MCH 27.8 pg (25.0-35.0); MCHC 31.8 g/dL (31.0-37.0); MCV 87.5 fL (80.0-100.0); Mean Platelet Volume 7.9; Monocytes # (A) 0.3 k/uL (0-1.0); Monocytes % (A) 5 %; Neutrophils % (A) 79 %; Poikilocytosis Slight; RDW 18.9 % (11.5-15.5); WBC 6.3 k/uL (3.8-10.6)
[2017-07-29 21:23] LABS: Platelet Count 84 k/uL (150-450)
[2017-07-29 21:24] LABS: Appearance,Urine Clear (Clear); Bacteria,Urine Rare /hpf; Bilirubin,Urine Negative (Negative); Blood,Urine Trace (Negative); Color,Urine Yellow; Glucose,Urine (UA) 4+ (Negative); Hyaline Casts,Urine 1 /lpf (0-2); Ketones,Urine Negative (Negative); Leukocyte Esterase,Urine Negative (Negative); Mucus,Urine Rare /hpf; Nitrite,Urine Negative (Negative); Protein,Urine Negative (Negative); RBC,Urine 9 /hpf (0-5); Specific Gravity,Urine 1.012 (1.001-1.035); Squamous Epithelial Cell,Urine 1 /hpf (0-4); Urobilinogen,Urine <2.0 mg/dL (<2.0); WBC,Urine 1 /hpf (0-5)
[2017-07-29 21:29] LABS: ALT 17 U/L (21-72); AST 40 U/L (17-59); Albumin 2.9 g/dL (3.5-5.0); Alkaline Phosphatase 107 U/L (38-126); Anion Gap 8 mmol/L; Blood Urea Nitrogen 8 mg/dL (9-20); Calcium 8.8 mg/dL (8.4-10.2); Carbon Dioxide 27 mmol/L (22-30); Chloride 104 mmol/L (98-107); Glucose 84 mg/dL (74-99); Potassium 3.5 mmol/L (3.5-5.1); Sodium 139 mmol/L (137-145); Total Bilirubin 0.3 mg/dL (0.2-1.3); Total Protein 5.3 g/dL (6.3-8.2)
[2017-07-29] MEDS ORDERED: PROPOFOL 100 ML IV ONE (21:58)
[2017-07-29] MEDS ORDERED: MIDAZOLAM 2 MG/2 ML VIAL ONE (22:30)
[2017-07-29] MEDS ORDERED: PROPOFOL 10 MG/ML 20 ML VIAL IV ONE (22:30)
[2017-07-29] MEDS ORDERED: SUCCINYLCHOLINE CHLORIDE 100 MG/5 ML SYR IV ONE (22:30)
[2017-07-29] MEDS ORDERED: ROCURONIUM BROMIDE 10 MG/ML 10 ML VIAL IV ONE (22:30)
[2017-07-29 23:27] LABS: ABG Base Excess 2.1 mmol/L; ABG HCO3 25 mmol/L (21-25); ABG PCO2 33 mmHg (35-45); ABG PO2 >400 mmHg (83-108); ABG TCO2 26 mmol/L (19-24)
[2017-07-29] MEDS: cefTRIAXone IN SWFI 1,000 MG/10 ML SYRINGE IVP SCH (23:41)
[2017-07-29] MEDS: DEXTROSE 10% IN WATER 500 ML in EMPTY BAG 1 BAG IV SCH (23:41)
--- NOTE | 2017-07-30 00:03 | XR ---
EXAMINATION TYPE: XR chest 1V portable DATE OF EXAM: 07/29/2017 COMPARISON: Today HISTORY: Intubation TECHNIQUE: Single frontal view of the chest is obtained. FINDINGS: Endotracheal tube is 2 cm from the rashard. There is a mild infiltrate in the right lower l obe. There are chest leads. There is nasogastric tube that is looped in the stomach. There is no sign of a pneumothorax. There is left central venous catheter with the tip over the upper right atrium. IMPRESSION: Endotracheal tube is low and could be pulled back 1 to 2 cm. There is mild infiltrate in the right lower lobe that is increased compared to the exam 3 hours ago.. No heart failure. There is also possible new infiltrate in the left lower lobe behind the heart.
[2017-07-30 00:06] LABS: Glucose,Whole Blood 108 mg/dL (75-99)
[2017-07-30] MEDS: LORazepam 2 MG/ML INJ IV PRN (00:39)
[2017-07-30] MEDS: PROPOFOL 1,000 MG in EMPTY BAG 1 BAG IV SCH ×3 (02:55→23:03)
[2017-07-30] MEDS: POTASSIUM BICARBONATE/CIT AC 20 MEQ TABLET.EFF NG-TUBE SCH ×4 (02:56→07:57)
[2017-07-30 06:07] LABS: Glucose,Whole Blood 102 mg/dL (75-99)
[2017-07-30 06:12] LABS: Anisocytosis Slight; Basophils % (A) 0 %; Eosinophils # (A) 0.1 k/uL (0-0.7); Eosinophils % (A) 2 %; HCT 26.9 % (39.0-53.0); HGB 8.5 gm/dL (13.0-17.5); Hypochromasia Moderate; Lymphocytes # (A) 1.4 k/uL (1.0-4.8); Lymphocytes % (A) 24 %; MCH 27.8 pg (25.0-35.0); MCHC 31.7 g/dL (31.0-37.0); MCV 87.6 fL (80.0-100.0); Mean Platelet Volume 8.3; Monocytes # (A) 0.3 k/uL (0-1.0); Monocytes % (A) 5 %; Neutrophils # (A) 3.7 k/uL (1.3-7.7); Neutrophils % (A) 65 %; Poikilocytosis Slight; RBC 3.07 m/uL (4.30-5.90); RDW 19.3 % (11.5-15.5); WBC 5.7 k/uL (3.8-10.6)
[2017-07-30 06:13] LABS: Platelet Count 81 k/uL (150-450)
[2017-07-30 06:24] LABS: Anion Gap 6 mmol/L; Blood Urea Nitrogen 9 mg/dL (9-20); Calcium 8.2 mg/dL (8.4-10.2); Carbon Dioxide 28 mmol/L (22-30); Chloride 106 mmol/L (98-107); Glucose 100 mg/dL (74-99); Magnesium 1.9 mg/dL (1.6-2.3); Phosphorus 3.6 mg/dL (2.5-4.5); Potassium 3.4 mmol/L (3.5-5.1); Sodium 140 mmol/L (137-145)
[2017-07-30] MEDS: MAGNESIUM SULFATE-D5W PMX 1 GM in DEXTROSE/WATER 1 100ML.BAG IVPB SCH ×2 (06:57→08:40)
--- NOTE | 2017-07-30 07:05 | XR ---
EXAMINATION TYPE: XR chest 1V portable DATE OF EXAM: 07/30/2017 HISTORY: Tube placement. REFERENCE: Previous study dated 07/29/2017. FINDINGS: The patient is ET tube and NG tube remain in place, unchanged in appearance. There is a lef t subclavian catheter in place. Its tip is in the superior vena cava. There continues be left basilar airspace disease. There is some subtle alveolar airspace disease on t he right at the right lung base. This is unchanged. There is a small left effusion. Heart size is upp er limits of normal. IMPRESSION: 1. BORDERLINE CARDIOMEGALY. 2. BIBASILAR AIRSPACE DISEASE, WORSE ON THE LEFT THAN THE RIGHT. 3. SMALL LEFT EFFUSION.
[2017-07-30 07:50] LABS: ABG HCO3 28 mmol/L (21-25); ABG PCO2 41 mmHg (35-45); ABG PO2 159 mmHg (83-108); ABG TCO2 29 mmol/L (19-24)
[2017-07-30] MEDS: PANTOPRAZOLE 40 MG/10 ML VIAL IVP SCH ×2 (07:56→21:40)
[2017-07-30] MEDS: VALPROIC ACID ORAL SOLN 250 MG/5 ML CUP PO SCH ×2 (07:56→21:41)
[2017-07-30] MEDS: cefTRIAXone IN SWFI 1,000 MG/10 ML SYRINGE IVP SCH (07:56)
[2017-07-30] MEDS: CHLORHEXIDINE GLUCONATE 15 ML CUP MUCOUS MEM SCH ×2 (07:56→21:39)
[2017-07-30] MEDS: MAGNESIUM OXIDE 400 MG TAB PO SCH ×2 (07:57→21:40)
[2017-07-30] MEDS: DEXTROSE 10% IN WATER 500 ML in EMPTY BAG 1 BAG IV SCH ×2 (07:57→15:39)
[2017-07-30] MEDS: guaiFENesin 600 MG TABLET.ER PO SCH ×2 (07:57→21:39)
[2017-07-30] MEDS: CALCIUM CARB-VIT D 500MG-200UN 1 EACH TAB PO SCH ×3 (07:58→21:39)
[2017-07-30] MEDS: levETIRAcetam IV 500 MG in SODIUM CHLORIDE 0.9% 100 ML IVPB SCH ×2 (09:30→21:43)
--- NOTE | 2017-07-30 10:40 | P.PN ---
Subjective Progress Note Date: 07/30/17 Principal diagnosis: The patient is a 47-year-old male that was transferred here from [facility] with concerns for GI bleed after presented with reports of coffee-ground emesis and black colored stools on presentation his hemoglobin was 7.8 and got as low as 6.9, review of records indicated he had a EGD and July 30 that showed severe reflux esophagitis with multiple erosions and distal esophageal stricture consistent with a grade 4 esophagitis and antral gastritis. The patient reports a history of seizure disorder and liver cirrhosis, and also has chronic thrombocytopenia due to his alcoholism. Patient noted to have acute metabolic encephalopathy secondary to alcohol withdrawal and multiple electrolyte abnormalities as well as hypo-glycemia, the patient was transferred to the ICU and subsequently intubated secondary to acute hypoxic respiratory failure and ongoing alcohol withdrawal, he was started several amps of D50 and started on D10. We'll place an OG tube and start the patient on Jevity with dietary consult Patient having increasing confusion overnight reports that he's in [place], was increasingly agitated and pulling at his central line, patient subsequently placed in 4 point soft restraints to maintain his safety and given intermittent doses of Ativan, patient going into a very bad alcohol withdrawal and DTs overnight, with subsequent respiratory failure, ongoing electrolyte abnormalities and hypoglycemia. Transferred to the ICU intubated And currently sedated on propofol Objective - Vital Signs Vital signs: Vital Signs Temp 99.0 F 07/30/17 08:00 Pulse 70 07/30/17 09:00 Resp 22 07/30/17 09:00 BP 125/72 07/29/17 22:30 Pulse Ox 100 07/30/17 09:00 Intake & Output 07/29/17 07/30/17 07/30/17 18:59 06:59 18:59 Intake Total 2960 807.72 440 Output Total 2 590 185 Balance 2958 217.72 255 Weight 56.8 kg Intake: IV 675 350 Dextrose 10% in Water 500 350 150 ml In Empty Bag 1 bag @ 50 mls/hr IV .Q10H [facility] Rx #:[id number] Dextrose 5% in Water 1, 225 000 ml @ 75 mls/hr IV . [id number] ONE with Mvi, Adult No.4 with Vit K 10 ml with Thiamine 100 mg with Folic Acid 1 mg Rx#: [id number] Magnesium Sulfate-D5w Pmx 200 1 gm In Dextrose/Water 1 100ml.bag @ 100 mls/hr IVPB Q1H [facility] Rx#: [id number] levETIRAcetam IV 500 mg 100 In Sodium Chloride 0.9% 100 ml @ 400 mls/hr IVPB Q12HR [facility] Rx#:[id number] Intake, IV Titration 1600 72.72 Amount Calcium Gluconate 2,000 100 mg In Sodium Chloride 0.9 % 100 ml @ 100 mls/hr IVPB ONCE ONE Rx#: [id number] Magnesium Sulfate-D5w Pmx 400 1 gm In Dextrose/Water 1 100ml.bag @ 100 mls/hr IVPB Q1H [facility] Rx#: [id number] Propofol 1,000 mg In 72.72 Empty Bag 1 bag @ Titrate IV .Q0M [facility] Rx#: [id number] Sodium Chloride 0.45% 1, 600 000 ml @ 75 mls/hr IV . [id number] [facility] Rx#:[id number] Sodium Phosphate 10 mmol 500 In Sodium Chloride 0.9% 250 ml @ 125 mls/hr IVPB Q2H [facility] Rx#:[id number] Oral 1360 Other 60 90 Output: Urine 2 590 185 Other: Voiding Method Incontinent Indwelling Catheter # Voids 1 ABP, PAP, CO, CI - Last Documented Arterial Blood Pressure 105/66 - Exam Constitutional: No acute distress, conversant, pleasant Eyes: Anicteric sclerae, moist conjunctiva, no lid-lag ENMT: NC/AT,Oropharynx clear, no erythema, exudates Neck:Supple, FROM, no masses, or JVD, No carotid bruits; No thyromegaly Lungs: Clear to auscultation, Clear to percussion, Normal respiratory effort, no accessory muscle use, on a ventilator Cardiovascular: Heart regular in rate and rhythm, No murmurs, gallops, or rubs no peripheral edema Abdominal: Soft Nontender, nom distended, no guarding, no rebound or rigidity, Normoactive bowel sounds No hepatomegaly, No splenomegaly, No palpable mass No abdominal wall hernia noted Skin: Normal temperature, tone, texture, turgor, No induration No subcutaneous nodules, No rash, lesions, No ulcers Extremities:No digital cyanosis No clubbing, Pedal pulses intact and symmetrical Radial pulses intact and symmetrical Normal gait and station, No calf tenderness Psychiatric: Sedated on propofol Appropriate affect Intact judgement Neuro: Muscles Strength 5/5 in all 4 extremities, Sensation to light touch grossly present throughout, Cranial nerves II-XII grossly intact. No focal sensory deficits - Labs CBC & Chem 7: 07/30/17 06:05 07/30/17 06:05 Labs: Abnormal Lab Results - Last 24 Hours (Table) 07/29/17 07/29/17 07/29/17 Range/Units 16:53 17:03 17:25 RBC (4.30-5.90) m/uL Hgb (13.0-17.5) gm/dL Hct (39.0-53.0) % RDW (11.5-15.5) % Plt Count (150-450) k/uL Lymphocytes # (1.0-4.8) k/uL ABG pH (7.35-7.45) ABG pCO2 (35-45) mmHg ABG pO2 (83-108) mmHg ABG HCO3 (21-25) mmol/L ABG Total CO2 (19-24) mmol/L ABG O2 Saturation (94-97) % Potassium (3.5-5.1) mmol/L BUN (9-20) mg/dL Glucose (74-99) mg/dL POC Glucose (mg/dL) 44 L 61 L 59 L (75-99) mg/dL Plasma Lactic Acid Reji (0.7-2.0) mmol/L Calcium (8.4-10.2) mg/dL ALT (21-72) U/L Total Protein (6.3-8.2) g/dL Albumin (3.5-5.0) g/dL Urine Glucose (UA) (Negative) Urine Blood (Negative) Urine RBC (0-5) /hpf Urine Bacteria (None) /hpf Urine Mucus (None) /hpf 07/29/17 07/29/17 07/29/17 Range/Units 17:37 17:49 18:05 RBC (4.30-5.90) m/uL Hgb (13.0-17.5) gm/dL Hct (39.0-53.0) % RDW (11.5-15.5) % Plt Count (150-450) k/uL Lymphocytes # (1.0-4.8) k/uL ABG pH (7.35-7.45) ABG pCO2 (35-45) mmHg ABG pO2 (83-108) mmHg ABG HCO3 (21-25) mmol/L ABG Total CO2 (19-24) mmol/L ABG O2 Saturation (94-97) % Potassium (3.5-5.1) mmol/L BUN (9-20) mg/dL Glucose (74-99) mg/dL POC Glucose (mg/dL) 41 L 51 L 27 L (75-99) mg/dL Plasma Lactic Acid Reji (0.7-2.0) mmol/L Calcium (8.4-10.2) mg/dL ALT (21-72) U/L Total Protein (6.3-8.2) g/dL Albumin (3.5-5.0) g/dL Urine Glucose (UA) (Negative) Urine Blood (Negative) Urine RBC (0-5) /hpf Urine Bacteria (None) /hpf Urine Mucus (None) /hpf 07/29/17 07/29/17 07/29/17 Range/Units 18:06 18:26 19:54 RBC (4.30-5.90) m/uL Hgb (13.0-17.5) gm/dL Hct (39.0-53.0) % RDW (11.5-15.5) % Plt Count (150-450) k/uL Lymphocytes # (1.0-4.8) k/uL ABG pH (7.35-7.45) ABG pCO2 (35-45) mmHg ABG pO2 (83-108) mmHg ABG HCO3 (21-25) mmol/L ABG Total CO2 (19-24) mmol/L ABG O2 Saturation (94-97) % Potassium (3.5-5.1) mmol/L BUN (9-20) mg/dL Glucose 247 H (74-99) mg/dL POC Glucose (mg/dL) 185 H 62 L (75-99) mg/dL Plasma Lactic Acid Reji (0.7-2.0) mmol/L Calcium (8.4-10.2) mg/dL ALT (21-72) U/L Total Protein (6.3-8.2) g/dL Albumin (3.5-5.0) g/dL Urine Glucose (UA) (Negative) Urine Blood (Negative) Urine RBC (0-5) /hpf Urine Bacteria (None) /hpf Urine Mucus (None) /hpf 07/29/17 07/29/17 07/29/17 Range/Units 20:16 21:00 21:00 RBC 3.10 L (4.30-5.90) m/uL Hgb 8.6 L (13.0-17.5) gm/dL Hct 27.1 L (39.0-53.0) % RDW 18.9 H (11.5-15.5) % Plt Count 84 L (150-450) k/uL Lymphocytes # 0.7 L (1.0-4.8) k/uL ABG pH (7.35-7.45) ABG pCO2 (35-45) mmHg ABG pO2 (83-108) mmHg ABG HCO3 (21-25) mmol/L ABG Total CO2 (19-24) mmol/L ABG O2 Saturation (94-97) % Potassium (3.5-5.1) mmol/L BUN (9-20) mg/dL Glucose (74-99) mg/dL POC Glucose (mg/dL) 114 H (75-99) mg/dL Plasma Lactic Acid Reji 2.2 H* (0.7-2.0) mmol/L Calcium (8.4-10.2) mg/dL ALT (21-72) U/L Total Protein (6.3-8.2) g/dL Albumin (3.5-5.0) g/dL Urine Glucose (UA) (Negative) Urine Blood (Negative) Urine RBC (0-5) /hpf Urine Bacteria (None) /hpf Urine Mucus (None) /hpf 07/29/17 07/29/17 07/29/17 Range/Units 21:00 21:00 23:24 RBC (4.30-5.90) m/uL Hgb (13.0-17.5) gm/dL Hct (39.0-53.0) % RDW (11.5-15.5) % Plt Count (150-450) k/uL Lymphocytes # (1.0-4.8) k/uL ABG pH 7.50 H (7.35-7.45) ABG pCO2 33 L (35-45) mmHg ABG pO2 >400 H (83-108) mmHg ABG HCO3 (21-25) mmol/L ABG Total CO2 26 H (19-24) mmol/L ABG O2 Saturation 100.0 H (94-97) % Potassium (3.5-5.1) mmol/L BUN 8 L (9-20) mg/dL Glucose (74-99) mg/dL POC Glucose (mg/dL) (75-99) mg/dL Plasma Lactic Acid Reji (0.7-2.0) mmol/L Calcium (8.4-10.2) mg/dL ALT 17 L (21-72) U/L Total Protein 5.3 L (6.3-8.2) g/dL Albumin 2.9 L (3.5-5.0) g/dL Urine Glucose (UA) 4+ H (Negative) Urine Blood Trace H (Negative) Urine RBC 9 H (0-5) /hpf Urine Bacteria Rare H (None) /hpf Urine Mucus Rare H (None) /hpf 07/30/17 07/30/17 07/30/17 Range/Units 00:03 06:03 06:05 RBC 3.07 L (4.30-5.90) m/uL Hgb 8.5 L (13.0-17.5) gm/dL Hct 26.9 L (39.0-53.0) % RDW 19.3 H (11.5-15.5) % Plt Count 81 L (150-450) k/uL Lymphocytes # (1.0-4.8) k/uL ABG pH (7.35-7.45) ABG pCO2 (35-45) mmHg ABG pO2 (83-108) mmHg ABG HCO3 (21-25) mmol/L ABG Total CO2 (19-24) mmol/L ABG O2 Saturation (94-97) % Potassium (3.5-5.1) mmol/L BUN (9-20) mg/dL Glucose (74-99) mg/dL POC Glucose (mg/dL) 108 H 102 H (75-99) mg/dL Plasma Lactic Acid Reji (0.7-2.0) mmol/L Calcium (8.4-10.2) mg/dL ALT (21-72) U/L Total Protein (6.3-8.2) g/dL Albumin (3.5-5.0) g/dL Urine Glucose (UA) (Negative) Urine Blood (Negative) Urine RBC (0-5) /hpf Urine Bacteria (None) /hpf Urine Mucus (None) /hpf 07/30/17 07/30/17 Range/Units 06:05 07:39 RBC (4.30-5.90) m/uL Hgb (13.0-17.5) gm/dL Hct (39.0-53.0) % RDW (11.5-15.5) % Plt Count (150-450) k/uL Lymphocytes # (1.0-4.8) k/uL ABG pH (7.35-7.45) ABG pCO2 (35-45) mmHg ABG pO2 159 H (83-108) mmHg ABG HCO3 28 H (21-25) mmol/L ABG Total CO2 29 H (19-24) mmol/L ABG O2 Saturation 100.0 H (94-97) % Potassium 3.4 L (3.5-5.1) mmol/L BUN (9-20) mg/dL Glucose 100 H (74-99) mg/dL POC Glucose (mg/dL) (75-99) mg/dL Plasma Lactic Acid Reji (0.7-2.0) mmol/L Calcium 8.2 L (8.4-10.2) mg/dL ALT (21-72) U/L Total Protein (6.3-8.2) g/dL Albumin (3.5-5.0) g/dL Urine Glucose (UA) (Negative) Urine Blood (Negative) Urine RBC (0-5) /hpf Urine Bacteria (None) /hpf Urine Mucus (None) /hpf Assessment and Plan (1) Acute respiratory failure with hypoxia Narrative/Plan: * Secondary to pneumonia concern for aspiration in the setting of severe alcohol withdrawal and delirium tremens * Pulmonary following appreciate recommendations, chest x-ray this morning showing bibasilar airspace disease left greater than right * Continue with vent settings per pulmonary, patient sedated on propofol Current Visit: Yes Status: Acute Code(s): J96.01 - ACUTE RESPIRATORY FAILURE WITH HYPOXIA SNOMED Code(s): 17526710 (2) Pneumonia Narrative/Plan: * Concern for sepsis and aspiration pneumonia, sputum cultures have been ordered blood cultures pending * Chest x-ray revealing bibasilar infiltrates left greater than right * We'll start patient on IV clindamycin will continue Rocephin Current Visit: Yes Status: Acute Code(s): J18.9 - PNEUMONIA, UNSPECIFIED ORGANISM SNOMED Code(s): 864889853 (3) Metabolic encephalopathy Narrative/Plan: * CT of the head showing no acute intracranial abnormality * Confusion likely secondary to alcohol withdrawal superimposed on multiple electrolyte abnormalities and hypoglycemia * Continue with Ativan when necessary with symptom triggered CIWA protocol Current Visit: Yes Status: Acute Code(s): G93.41 - METABOLIC ENCEPHALOPATHY SNOMED Code(s): 92681230 (4) Acute blood loss anemia Narrative/Plan: * Hemoglobin holding stable at 9.4 after having 1 unit packed RBC transfusion * We'll continue to monitor, likely secondary to problem number #2 * EGD showing ulcers and erosions in the distal esophagus consistent with grade D reflux esophagitis, also status post balloon dilatation of distal esophageal stricture * Continue with PPI therapy, Current Visit: Yes Status: Acute Code(s): D62 - ACUTE POSTHEMORRHAGIC ANEMIA SNOMED Code(s): 182144214 (5) Upper GI bleed Current Visit: Yes Status: Acute Code(s): K92.2 - GASTROINTESTINAL HEMORRHAGE, UNSPECIFIED SNOMED Code(s): 39864398 (6) GERD with esophagitis Narrative/Plan: * Grade D esophagitis * Continue with PPI therapy were place OG tube initiate tube feeds Jevity with goal of 65 mL per Current Visit: No Status: Chronic Code(s): K21.0 - GASTRO-ESOPHAGEAL REFLUX DISEASE WITH ESOPHAGITIS SNOMED Code(s): 113314716 (7) Hypocalcemia Narrative/Plan: * Replace and recheck in the morning Current Visit: Yes Status: Acute Priority: High Code(s): E83.51 - HYPOCALCEMIA SNOMED Code(s): 0744076 (8) Hypomagnesemia Narrative/Plan: * Replace with 4 g we'll recheck in the morning Current Visit: Yes Status: Acute Code(s): E83.42 - HYPOMAGNESEMIA SNOMED Code(s): 701749111 (9) Alcohol dependence Current Visit: No Status: Acute Code(s): F10.20 - ALCOHOL DEPENDENCE, UNCOMPLICATED SNOMED Code(s): 85867768 (10) Acute kidney injury Narrative/Plan: * Likely prerenal secondary to dehydration * Creatinine trending down from 2.4- back to normal * continue with clear liquids we'll initiate 1/2 normal saline 75 mL an hour Current Visit: Yes Status: Resolved Code(s): N17.9 - ACUTE KIDNEY FAILURE, UNSPECIFIED SNOMED Code(s): 47096390 (11) Hypoglycemia Current Visit: Yes Status: Acute Code(s): E16.2 - HYPOGLYCEMIA, UNSPECIFIED SNOMED Code(s): 615212051
[2017-07-30] MEDS: PROPRANOLOL 20 MG TAB PO SCH ×2 (10:49→21:41)
[2017-07-30 11:57] LABS: Glucose,Whole Blood 100 mg/dL (75-99)
[2017-07-30 12:16] LABS: Magnesium 2.9 mg/dL (1.6-2.3); Potassium 4.1 mmol/L (3.5-5.1)
--- NOTE | 2017-07-30 12:52 | P.CNPUL ---
History of Present Illness Consult date: 07/30/17 Requesting physician: Katerine Mott Reason for consult: other (Critical care management) Chief complaint: Dark tarry stools, coffee-ground emesis History of present illness: This is a 47-year-old gentleman who follows with Dr. Perez is his primary care physician. He has a history of hypertension, seizure disorder, bipolar disorder , depression, esophageal stricture and reflux esophagitis. He also has a history of alcoholism with subsequent alcoholic pancreatitis, alcoholic seizures and some dementia. He has continued and ongoing daily alcohol abuse. He presented here back on 07/26/2017 to the emergency room from [facility]. He was transferred due to the GI bleeding. He was admitted to the general medical floor. He had undergone EGD on 07/28/2017 and was found to have distal esophageal stricture status post balloon dilatation. There is erosion some ulcerations in the distal esophagus consistent with LA grade D reflux esophagitis. He's been on Protonix 40 mg twice a day. The patient had been placed on the CIWA protocol however he had become increasingly agitated. A computed tomography scan of the brain revealed no acute intracranial hemorrhage, mass effect or midline shift. Last evening he became more agitated and restless. He was given Ativan per protocol. Eventually he became hypoxic and was transferred to the intensive care unit. He was intubated and placed on mechanical ventilator. He is seen today in consultation in the intensive care unit. Today's chest x-ray reveals borderline cardiomegaly, bibasilar airspace disease left greater than right with small left effusion. Current vent settings are assist-control mode at a rate of 20, tidal volume 350, FiO2 35% and a PEEP of 5. Morning blood gases reveal a P O2 of 159, pCO2 41 and a pH of 7.40 that was on 40% FiO2. He is currently sedated on propofol at 40 mcg/kg/m. He has D10 running at 50 MLS per hour for low blood sugars. He is currently on ceftriaxone and clindamycin. White count 5.7. Hemoglobin 8.5. Platelet count 81,000. Sodium 140. Potassium 3.4. Creatinine 0.74. Blood glucose 100. He is hypothermic with a rectal temp of 94.7 warm and has been applied. He is currently hemodynamically stable and not requiring any pressors. Review of Systems ROS unobtainable: due to endotracheal tube Past Medical History Past Medical History: GERD/Reflux, Hypertension, Liver Disease, Memory Impairment, Renal Disease, Seizure Disorder Additional Past Medical History / Comment(s): Alcoholism, alcoholic pancreatitis , alcoholic seizures and seizures as a child, as esophageal stricture and reflux esophagitis/erosions, CRUSH ALL PILLS, alcoholic dementia, thrombocytopenia, Cdiff colitis 2015, hypoglycemia, sinus problems. History of Any Multi-Drug Resistant Organisms: C-DIFF Date of last positivie culture/infection: 07/02/2015 MDRO Source:: stool Past Surgical History: Adenoidectomy, Tonsillectomy Additional Past Surgical History / Comment(s): EGDs Past Anesthesia/Blood Transfusion Reactions: No Reported Reaction Smoking Status: Never smoker - Past Family History Father Family Medical History: Diabetes Mellitus Mother Family Medical History: Diabetes Mellitus, Deep Vein Thrombosis (DVT), Hypertension Sister(s) Family Medical History: Diabetes Mellitus Brother(s) Family Medical History: Diabetes Mellitus Medications and Allergies Home Medications Medication Instructions Recorded Confirmed Type Propranolol HCl 20 mg PO BID 06/30/15 07/26/17 History Folic Acid 1 mg PO DAILY 09/12/15 07/26/17 History Magnesium Chloride [Slow-Mag] 128 mg PO BID #120 tablet.er 01/05/16 07/26/17 Rx Thiamine [Vitamin B-1] 100 mg PO DAILY@1200 #30 tab 01/05/16 07/26/17 Rx Multivitamins, Thera [Multivitamin 1 tab PO DAILY@1200 07/10/16 07/26/17 History (formulary)] Ondansetron Odt [Zofran Odt] 4 mg PO Q8HR 07/26/17 07/26/17 History Sertraline HCl [Zoloft] 25 mg PO DAILY 07/26/17 07/26/17 History Sucralfate [Carafate] 1 gm PO QID 07/26/17 07/26/17 History Valproic Acid Oral Soln [Depakene 250 mg PO BID 07/26/17 07/26/17 History Syrup] levETIRAcetam 500 mg PO BID 07/26/17 07/26/17 History Allergies Allergy/AdvReac Type Severity Reaction Status Date / Time Penicillins Allergy Rash/Hives Verified 07/26/17 17:21 Physical Exam Vitals: Vital Signs Temp Pulse Pulse Resp BP BP Pulse Ox 07/30/17 11:00 74 24 97 07/30/17 10:00 65 20 100 07/30/17 09:00 70 22 100 07/30/17 08:00 99.0 F 60 20 100 07/30/17 07:00 68 20 100 07/30/17 06:30 69 20 100 07/30/17 06:00 69 20 100 07/30/17 05:30 71 20 100 07/30/17 05:00 96.9 F L 68 20 100 07/30/17 04:30 71 20 100 07/30/17 04:00 74 20 100 07/30/17 03:30 76 20 100 07/30/17 03:00 80 20 99 07/30/17 02:30 77 20 99 07/30/17 02:00 82 20 99 07/30/17 01:30 74 31 H 100 07/30/17 01:00 93 20 100 07/30/17 00:30 103 H 20 99 07/30/17 00:00 98.7 F 113 H 24 98 07/29/17 23:30 107 H 20 84 L 07/29/17 23:00 109 H 20 97 07/29/17 22:30 107 H 20 125/72 99 07/29/17 22:00 108 H 31 H 152/75 99 07/29/17 21:30 104 H 32 H 99 07/29/17 21:00 120 H 34 H 99 07/29/17 20:30 102 H 45 H 176/93 98 07/29/17 20:11 110 H 39 H 07/29/17 20:00 110 H 40 H 07/29/17 19:52 99.4 F 110 H 16 132/82 79 L 07/29/17 18:59 74 L 07/29/17 17:10 93 L 07/29/17 16:00 119 H 134/83 Intake and Output 07/29/17 07/30/17 07/30/17 22:59 06:59 14:59 Intake Total 2630 657.72 560 Output Total 70 520 320 Balance 2560 137.72 240 Intake: IV 150 525 450 Dextrose 10% in Water 500 350 250 ml In Empty Bag 1 bag @ 50 mls/hr IV .Q10H [facility] Rx #:[id number] Dextrose 5% in Water 1, 150 75 000 ml @ 75 mls/hr IV . [id number] ONE with Mvi, Adult No.4 with Vit K 10 ml with Thiamine 100 mg with Folic Acid 1 mg Rx#: [id number] Magnesium Sulfate-D5w Pmx 200 1 gm In Dextrose/Water 1 100ml.bag @ 100 mls/hr IVPB Q1H [facility] Rx#: [id number] levETIRAcetam IV 500 mg 100 In Sodium Chloride 0.9% 100 ml @ 400 mls/hr IVPB Q12HR [facility] Rx#:[id number] Intake, IV Titration 1600 72.72 Amount Calcium Gluconate 2,000 100 mg In Sodium Chloride 0.9 % 100 ml @ 100 mls/hr IVPB ONCE ONE Rx#: [id number] Magnesium Sulfate-D5w Pmx 400 1 gm In Dextrose/Water 1 100ml.bag @ 100 mls/hr IVPB Q1H [facility] Rx#: [id number] Propofol 1,000 mg In 72.72 Empty Bag 1 bag @ Titrate IV .Q0M [facility] Rx#: [id number] Sodium Chloride 0.45% 1, 600 000 ml @ 75 mls/hr IV . [id number] [facility] Rx#:[id number] Sodium Phosphate 10 mmol 500 In Sodium Chloride 0.9% 250 ml @ 125 mls/hr IVPB Q2H [facility] Rx#:[id number] Oral 880 Tube Feeding 20 Other 60 90 Output: Urine 70 520 320 Other: Voiding Method Incontinent Indwelling Catheter Indwelling Catheter # Voids 1 Weight 56.8 kg 56.8 kg ABP, PAP, CO, CI - Last 8 Hours Arterial Blood Pressure 127/68 Arterial Blood Pressure 126/80 Arterial Blood Pressure 105/66 Arterial Blood Pressure 102/60 Arterial Blood Pressure 120/74 Arterial Blood Pressure 89/56 Arterial Blood Pressure 88/52 Arterial Blood Pressure 92/52 Arterial Blood Pressure 105/63 Arterial Blood Pressure 89/52 GENERAL EXAM: Intubated, sedated, in no apparent distress. HEAD: Normocephalic. EYES: Normal reaction of pupils, equal size. NOSE: Clear with pink turbinates. THROAT: Oral endotracheal and gastric tube secured in place. No erythema or exudates. NECK: No masses, no JVD. CHEST: No chest wall deformity. LUNGS: Equal air entry with crackles in the posterior bases more so on the left. CVS: S1 and S2 normal with no audible murmur, regular rhythm. ABDOMEN: No hepatosplenomegaly, normal bowel sounds, no guarding or rigidity. SPINE: No scoliosis or deformity SKIN: No rashes CENTRAL NERVOUS SYSTEM: Sedated. EXTREMITIES: There is no peripheral edema. No clubbing, no cyanosis. Peripheral pulses are intact. Results - Laboratory Findings CBC and BMP: 07/30/17 06:05 07/30/17 12:00 ABG ABG pH 7.40 (7.35-7.45) 07/30/17 07:39 ABG pCO2 41 mmHg (35-45) 07/30/17 07:39 ABG pO2 159 mmHg (83-108) H 07/30/17 07:39 ABG O2 Saturation 100.0 % (94-97) H 07/30/17 07:39 PT/INR, D-dimer PT 11.1 sec (9.0-12.0) 07/29/17 05:17 INR 1.1 (<1.2) 07/29/17 05:17 Abnormal lab findings: Abnormal Labs 07/26/17 07/26/17 07/26/17 18:15 18:15 23:56 RBC 2.90 L Hgb 7.8 L Hct 25.1 L MCHC RDW 19.5 H Plt Count 81 L Lymphocytes # 0.6 L Metamyelocytes # (Man) ABG pH ABG pCO2 ABG pO2 ABG HCO3 ABG Total CO2 ABG O2 Saturation Sodium 146 H Potassium Chloride Carbon Dioxide 19 L BUN 46 H Creatinine 2.64 H Glucose 117 H POC Glucose (mg/dL) Plasma Lactic Acid Reji Calcium 6.0 L* Phosphorus Magnesium AST ALT 18 L Total Protein 5.9 L Albumin Amylase 178 H Urine Glucose (UA) Urine Blood Urine RBC Urine Bacteria Urine Mucus Crossmatch See Detail 07/27/17 07/27/17 07/27/17 00:00 00:00 08:05 RBC 2.66 L 3.11 L Hgb 6.9 L* 8.4 L D Hct 22.7 L 26.8 L MCHC 30.4 L RDW 19.4 H 18.7 H Plt Count 85 L 76 L Lymphocytes # Metamyelocytes # (Man) 0.05 H ABG pH ABG pCO2 ABG pO2 ABG HCO3 ABG Total CO2 ABG O2 Saturation Sodium Potassium Chloride Carbon Dioxide BUN 47 H Creatinine 2.40 H Glucose 150 H POC Glucose (mg/dL) Plasma Lactic Acid Reji Calcium 7.0 L Phosphorus Magnesium AST ALT Total Protein Albumin Amylase Urine Glucose (UA) Urine Blood Urine RBC Urine Bacteria Urine Mucus Crossmatch 07/27/17 07/27/17 07/27/17 08:05 14:25 19:52 RBC 3.30 L 3.47 L Hgb 9.1 L 9.7 L Hct 28.3 L 29.8 L MCHC RDW 18.4 H 18.7 H Plt Count 77 L 83 L Lymphocytes # Metamyelocytes # (Man) ABG pH ABG pCO2 ABG pO2 ABG HCO3 ABG Total CO2 ABG O2 Saturation Sodium 146 H Potassium Chloride Carbon Dioxide BUN 45 H Creatinine 1.72 H Glucose 107 H POC Glucose (mg/dL) Plasma Lactic Acid Reji Calcium 7.3 L Phosphorus Magnesium AST ALT Total Protein 5.6 L Albumin 3.1 L Amylase Urine Glucose (UA) Urine Blood Urine RBC Urine Bacteria Urine Mucus Crossmatch 07/27/17 07/28/17 07/28/17 20:47 00:55 07:20 RBC 3.41 L 3.45 L Hgb 9.4 L 9.4 L Hct 29.4 L 29.4 L MCHC RDW 18.9 H 18.5 H Plt Count 75 L 74 L Lymphocytes # Metamyelocytes # (Man) 0.05 H ABG pH ABG pCO2 ABG pO2 ABG HCO3 ABG Total CO2 ABG O2 Saturation Sodium Potassium Chloride Carbon Dioxide BUN Creatinine Glucose POC Glucose (mg/dL) 112 H Plasma Lactic Acid Reji Calcium Phosphorus Magnesium AST ALT Total Protein Albumin Amylase Urine Glucose (UA) Urine Blood Urine RBC Urine Bacteria Urine Mucus Crossmatch 07/28/17 07/29/17 07/29/17 07:20 05:17 05:17 RBC 3.48 L Hgb 9.4 L Hct 31.0 L MCHC 30.3 L RDW 18.8 H Plt Count 83 L Lymphocytes # Metamyelocytes # (Man) ABG pH ABG pCO2 ABG pO2 ABG HCO3 ABG Total CO2 ABG O2 Saturation Sodium 148 H Potassium Chloride 109 H Carbon Dioxide BUN 26 H Creatinine Glucose POC Glucose (mg/dL) Plasma Lactic Acid Reji Calcium Phosphorus 1.1 L* Magnesium 1.3 L AST 60 H ALT 18 L Total Protein 5.5 L 5.9 L Albumin 3.0 L 3.2 L Amylase Urine Glucose (UA) Urine Blood Urine RBC Urine Bacteria Urine Mucus Crossmatch 07/29/17 07/29/17 07/29/17 16:53 17:03 17:25 RBC Hgb Hct MCHC RDW Plt Count Lymphocytes # Metamyelocytes # (Man) ABG pH ABG pCO2 ABG pO2 ABG HCO3 ABG Total CO2 ABG O2 Saturation Sodium Potassium Chloride Carbon Dioxide BUN Creatinine Glucose POC Glucose (mg/dL) 44 L 61 L 59 L Plasma Lactic Acid Reji Calcium Phosphorus Magnesium AST ALT Total Protein Albumin Amylase Urine Glucose (UA) Urine Blood Urine RBC Urine Bacteria Urine Mucus Crossmatch 07/29/17 07/29/17 07/29/17 17:37 17:49 18:05 RBC Hgb Hct MCHC RDW Plt Count Lymphocytes # Metamyelocytes # (Man) ABG pH ABG pCO2 ABG pO2 ABG HCO3 ABG Total CO2 ABG O2 Saturation Sodium Potassium Chloride Carbon Dioxide BUN Creatinine Glucose POC Glucose (mg/dL) 41 L 51 L 27 L Plasma Lactic Acid Reji Calcium Phosphorus Magnesium AST ALT Total Protein Albumin Amylase Urine Glucose (UA) Urine Blood Urine RBC Urine Bacteria Urine Mucus Crossmatch 07/29/17 07/29/17 07/29/17 18:06 18:26 19:54 RBC Hgb Hct MCHC RDW Plt Count Lymphocytes # Metamyelocytes # (Man) ABG pH ABG pCO2 ABG pO2 ABG HCO3 ABG Total CO2 ABG O2 Saturation Sodium Potassium Chloride Carbon Dioxide BUN Creatinine Glucose 247 H POC Glucose (mg/dL) 185 H 62 L Plasma Lactic Acid Reji Calcium Phosphorus Magnesium AST ALT Total Protein Albumin Amylase Urine Glucose (UA) Urine Blood Urine RBC Urine Bacteria Urine Mucus Crossmatch 07/29/17 07/29/17 07/29/17 20:16 21:00 21:00 RBC 3.10 L Hgb 8.6 L Hct 27.1 L MCHC RDW 18.9 H Plt Count 84 L Lymphocytes # 0.7 L Metamyelocytes # (Man) ABG pH ABG pCO2 ABG pO2 ABG HCO3 ABG Total CO2 ABG O2 Saturation Sodium Potassium Chloride Carbon Dioxide BUN Creatinine Glucose POC Glucose (mg/dL) 114 H Plasma Lactic Acid Reji 2.2 H* Calcium Phosphorus Magnesium AST ALT Total Protein Albumin Amylase Urine Glucose (UA) Urine Blood Urine RBC Urine Bacteria Urine Mucus Crossmatch 07/29/17 07/29/17 07/29/17 21:00 21:00 23:24 RBC Hgb Hct MCHC RDW Plt Count Lymphocytes # Metamyelocytes # (Man) ABG pH 7.50 H ABG pCO2 33 L ABG pO2 >400 H ABG HCO3 ABG Total CO2 26 H ABG O2 Saturation 100.0 H Sodium Potassium Chloride Carbon Dioxide BUN 8 L Creatinine Glucose POC Glucose (mg/dL) Plasma Lactic Acid Reji Calcium Phosphorus Magnesium AST ALT 17 L Total Protein 5.3 L Albumin 2.9 L Amylase Urine Glucose (UA) 4+ H Urine Blood Trace H Urine RBC 9 H Urine Bacteria Rare H Urine Mucus Rare H Crossmatch 07/30/17 07/30/17 07/30/17 00:03 06:03 06:05 RBC 3.07 L Hgb 8.5 L Hct 26.9 L MCHC RDW 19.3 H Plt Count 81 L Lymphocytes # Metamyelocytes # (Man) ABG pH ABG pCO2 ABG pO2 ABG HCO3 ABG Total CO2 ABG O2 Saturation Sodium Potassium Chloride Carbon Dioxide BUN Creatinine Glucose POC Glucose (mg/dL) 108 H 102 H Plasma Lactic Acid Reji Calcium Phosphorus Magnesium AST ALT Total Protein Albumin Amylase Urine Glucose (UA) Urine Blood Urine RBC Urine Bacteria Urine Mucus Crossmatch 07/30/17 07/30/17 07/30/17 06:05 07:39 11:55 RBC Hgb Hct MCHC RDW Plt Count Lymphocytes # Metamyelocytes # (Man) ABG pH ABG pCO2 ABG pO2 159 H ABG HCO3 28 H ABG Total CO2 29 H ABG O2 Saturation 100.0 H Sodium Potassium 3.4 L Chloride Carbon Dioxide BUN Creatinine Glucose 100 H POC Glucose (mg/dL) 100 H Plasma Lactic Acid Reji Calcium 8.2 L Phosphorus Magnesium AST ALT Total Protein Albumin Amylase Urine Glucose (UA) Urine Blood Urine RBC Urine Bacteria Urine Mucus Crossmatch 07/30/17 12:00 RBC Hgb Hct MCHC RDW Plt Count Lymphocytes # Metamyelocytes # (Man) ABG pH ABG pCO2 ABG pO2 ABG HCO3 ABG Total CO2 ABG O2 Saturation Sodium Potassium Chloride Carbon Dioxide BUN Creatinine Glucose POC Glucose (mg/dL) Plasma Lactic Acid Reji Calcium Phosphorus Magnesium 2.9 H AST ALT Total Protein Albumin Amylase Urine Glucose (UA) Urine Blood Urine RBC Urine Bacteria Urine Mucus Crossmatch - Diagnostic Findings Chest x-ray: image reviewed Assessment and Plan Assessment: Impression: #1 Acute hypoxic respiratory failure secondary to alcohol withdrawal syndrome with delirium tremens and probable aspiration. #2 Acute alcohol withdrawal. Admits to daily vodka consumption. #3 Acute GI bleeding secondary to alcoholism with erosions and ulcerations in the distal esophagus consistent with LA grade decrease reflux esophagitis. He also had distal esophageal stricture and is status post balloon dilatation on . He required 1 unit of packed red blood cells thus far. Current hemoglobin 8.5. On Protonix 40 mg IVP twice a day. #4 Hypoglycemia secondary to alcohol withdrawal currently requiring D10 at 50 MLS per hour. Blood glucose 100. #5 Aspiration pneumonia currently on ceftriaxone and clindamycin. Patient is pen ALLERGIC. #6 History of seizure disorder secondary to alcoholism and epilepsy as a child. Currently on Keppra and valproic acid. #7 History of hypertension. #8 History of bipolar disorder. Plan: The patient was seen and evaluated by Dr. Sevilla. Chest x-ray, ABGs and labs were all reviewed. Adjustments made accordingly. No plans to wean the patient today. Continue with propofol. Continue antibiotics. Add bronchodilators. Repeat chest x-ray, ABGs and labs in the a.m. Continue to monitor him here closely in the intensive care unit. We will continue to follow and make further recommendations based on his clinical status. Critical care time 38 minutes. I, the cosigning physician, performed a history & physical examination of the patient. Lungs sounds have crackles in the bilateral posterior bases more so on the left. Maintaining good O2 saturations in the 90s on 35% FiO2. I discussed the assessment and plan of care with my nurse practitioner, Rachel Hernandez. I attest to the above consultation as dictated by her. Time with Patient: Greater than 30
[2017-07-30] MEDS ORDERED: SODIUM CHLORIDE 0.9% 1,000 ML IV ONE ×2 (13:40→14:37)
[2017-07-30] MEDS: CLINDAMYCIN 600 MG in DEXTROSE 5% IN WATER 50 ML IVPB SCH ×4 (15:37→16:44)
[2017-07-30] MEDS: THIAMINE 100 MG TAB PO SCH (15:39)
[2017-07-30] MEDS: IPRATROPIUM-ALBUTEROL 3 ML NEB INHALATION SCH ×3 (16:55→22:31)
[2017-07-30 17:32] LABS: Glucose,Whole Blood 100 mg/dL (75-99)
[2017-07-30 17:38] LABS: Anisocytosis Moderate; HCT 27.2 % (39.0-53.0); HGB 8.3 gm/dL (13.0-17.5); Hypochromasia Marked; MCH 27.1 pg (25.0-35.0); MCHC 30.3 g/dL (31.0-37.0); MCV 89.3 fL (80.0-100.0); Mean Platelet Volume 8.2; Poikilocytosis Slight; RBC 3.05 m/uL (4.30-5.90); RDW 20.1 % (11.5-15.5); WBC 5.2 k/uL (3.8-10.6)
[2017-07-30 17:40] LABS: Platelet Count 97 k/uL (150-450)
[2017-07-30 17:46] LABS: Magnesium 2.4 mg/dL (1.6-2.3); Potassium 4.1 mmol/L (3.5-5.1)
[2017-07-30 23:40] LABS: Glucose,Whole Blood 54 mg/dL (75-99)
[2017-07-30] MEDS ORDERED: DEXTROSE 50%-WATER 50 ML SYRINGE IVP STA (23:41)
[2017-07-31] MEDS: PROPOFOL 1,000 MG in EMPTY BAG 1 BAG IV SCH ×3 (00:20→22:45)
[2017-07-31] MEDS: CLINDAMYCIN 600 MG in DEXTROSE 5% IN WATER 50 ML IVPB SCH ×6 (00:21→16:19)
[2017-07-31 00:38] LABS: Glucose,Whole Blood 142 mg/dL (75-99)
[2017-07-31] MEDS: LORazepam 2 MG/ML INJ IV PRN ×5 (02:03→22:22)
[2017-07-31] MEDS ORDERED: DEXTROSE 50%-WATER 50 ML SYRINGE IVP ONE (02:10)
[2017-07-31] MEDS ORDERED: DEXTROSE 50%-WATER 50 ML SYRINGE IVP STA (02:27)
[2017-07-31] MEDS: DEXTROSE 10% IN WATER 500 ML in EMPTY BAG 1 BAG IV SCH ×2 (03:26→12:49)
[2017-07-31] MEDS: IPRATROPIUM-ALBUTEROL 3 ML NEB INHALATION SCH ×6 (03:56→23:36)
[2017-07-31 04:45] LABS: Glucose,Whole Blood 121 mg/dL (75-99)
[2017-07-31 04:45] LABS: Glucose,Whole Blood 63 mg/dL (75-99)
[2017-07-31 05:05] LABS: Anisocytosis Moderate; HCT 26.2 % (39.0-53.0); HGB 8.3 gm/dL (13.0-17.5); Hypochromasia Moderate; MCH 27.6 pg (25.0-35.0); MCHC 31.6 g/dL (31.0-37.0); MCV 87.5 fL (80.0-100.0); Mean Platelet Volume 7.9; Platelet Count 107 k/uL (150-450); Poikilocytosis Slight; RDW 20.2 % (11.5-15.5); WBC 4.9 k/uL (3.8-10.6)
[2017-07-31 05:54] LABS: ALT 12 U/L (21-72); AST 17 U/L (17-59); Albumin 2.3 g/dL (3.5-5.0); Alkaline Phosphatase 86 U/L (38-126); Anion Gap 6 mmol/L; Blood Urea Nitrogen 10 mg/dL (9-20); Calcium 8.1 mg/dL (8.4-10.2); Carbon Dioxide 26 mmol/L (22-30); Chloride 106 mmol/L (98-107); Glucose 101 mg/dL (74-99); Potassium 3.9 mmol/L (3.5-5.1); Sodium 138 mmol/L (137-145); Total Bilirubin 0.2 mg/dL (0.2-1.3); Total Protein 4.8 g/dL (6.3-8.2)
[2017-07-31] MEDS ORDERED: Potassium Replacement Protocol 1 EACH MISC MISCELLANE PRN (06:07)
[2017-07-31 06:15] LABS: Basophils # (M) 0.05 k/uL (0-0.2); Eosinophils # (M) 0.05 k/uL (0-0.7); Lymphocytes # (M) 1.27 k/uL (1.0-4.8); Monocytes # (M) 1.08 k/uL (0-1.0); Neutrophils # (M) 2.45 k/uL (1.3-7.7); Neutrophils % (M) 50 %; Nucleated Red Blood Cells 0 /100 WBC (0-0); Total Cells Counted 100
--- NOTE | 2017-07-31 06:42 | XR ---
EXAMINATION TYPE: XR chest 1V portable DATE OF EXAM: 07/31/2017 HISTORY: Tube placement. REFERENCE: Previous study dated 07/30/2017. FINDINGS: The patient's ET tube and NG tube remain in place, unchanged in appearance. There is a left subclavian catheter in place. Its tip is in the right atrium. Heart size upper limits of normal. There is improved aeration at the left lung base. There is minimal atelectasis at the right lung base. No definite pleural fluid is seen. IMPRESSION: IMPROVED AERATION, LEFT LUNG BASE.
[2017-07-31] MEDS ORDERED: POTASSIUM BICARBONATE/CIT AC 20 MEQ TABLET.EFF NG-TUBE SCH (07:00)
[2017-07-31 08:21] LABS: ABG Base Excess 2.4 mmol/L; ABG HCO3 26 mmol/L (21-25); ABG Oxygen Saturation 99.4 % (94-97); ABG PCO2 36 mmHg (35-45); ABG PH 7.47 (7.35-7.45); ABG PO2 123 mmHg (83-108); ABG TCO2 27 mmol/L (19-24)
[2017-07-31] MEDS: VALPROIC ACID ORAL SOLN 250 MG/5 ML CUP PO SCH ×2 (08:46→22:45)
[2017-07-31] MEDS: guaiFENesin 600 MG TABLET.ER PO SCH ×2 (08:46→22:44)
[2017-07-31] MEDS: CHLORHEXIDINE GLUCONATE 15 ML CUP MUCOUS MEM SCH ×2 (08:47→22:44)
[2017-07-31] MEDS: MAGNESIUM OXIDE 400 MG TAB PO SCH ×2 (08:47→22:45)
[2017-07-31] MEDS: CALCIUM CARB-VIT D 500MG-200UN 1 EACH TAB PO SCH ×3 (08:47→22:46)
[2017-07-31] MEDS: PANTOPRAZOLE 40 MG/10 ML VIAL IVP SCH ×2 (08:47→22:45)
[2017-07-31] MEDS: PROPRANOLOL 20 MG TAB PO SCH ×2 (10:15→22:45)
[2017-07-31] MEDS: levETIRAcetam IV 500 MG in SODIUM CHLORIDE 0.9% 100 ML IVPB SCH ×2 (10:15→22:48)
[2017-07-31 12:14] LABS: Glucose,Whole Blood 71 mg/dL (75-99)
--- NOTE | 2017-07-31 14:56 | P.PN ---
Subjective Progress Note Date: 07/31/17 Principal diagnosis: The patient is a 47-year-old male that was transferred here from [facility] with concerns for GI bleed after presented with reports of coffee-ground emesis and black colored stools on presentation his hemoglobin was 7.8 and got as low as 6.9, review of records indicated he had a EGD and July 30 that showed severe reflux esophagitis with multiple erosions and distal esophageal stricture consistent with a grade 4 esophagitis and antral gastritis. The patient reports a history of seizure disorder and liver cirrhosis, and also has chronic thrombocytopenia due to his alcoholism. Patient noted to have acute metabolic encephalopathy secondary to alcohol withdrawal and multiple electrolyte abnormalities as well as hypo-glycemia, the patient was transferred to the ICU and subsequently intubated secondary to acute hypoxic respiratory failure due to aspiration pneumonia and ongoing alcohol withdrawal , he was started several amps of D50 and started on D10. OG was placed the patient was started on high protein tube feeds Patient currently sedated on propofol drip, has had borderline blood pressures overnight did receive a bolus of IV fluids yesterday, has good waveforms with his arterial line monitoring. Objective - Vital Signs Vital signs: Vital Signs Temp 98.4 F 07/31/17 12:00 Pulse 77 07/31/17 13:00 Resp 20 07/31/17 13:00 BP 108/57 07/31/17 07:00 Pulse Ox 99 07/31/17 13:00 Intake & Output 07/30/17 07/31/17 07/31/17 18:59 06:59 18:59 Intake Total 3120 917.788 488 Output Total 750 940 455 Balance 2370 -22.212 33 Weight 57 kg Intake: IV 2650 600 300 Dextrose 10% in Water 500 450 600 300 ml In Empty Bag 1 bag @ 50 mls/hr IV .Q10H RADHA Rx #:[id number] Magnesium Sulfate-D5w Pmx 200 1 gm In Dextrose/Water 1 100ml.bag @ 100 mls/hr IVPB Q1H RADHA Rx#: [id number] Sodium Chloride 0.9% 1, 2000 000 ml @ 999 mls/hr IV . Q1H1M ONE Rx#:[id number] Intake, IV Titration 100 76.788 Amount Propofol 1,000 mg In 100 76.788 Empty Bag 1 bag @ Titrate IV .Q0M RADHA Rx#: [id number] Tube Feeding 220 241 188 Other 150 Output: Urine 750 940 455 Other: Voiding Method Indwelling Catheter Indwelling Catheter Indwelling Catheter # Voids 1 ABP, PAP, CO, CI - Last Documented Arterial Blood Pressure 91/54 - Exam Constitutional: No acute distress, conversant, pleasant Eyes: Anicteric sclerae, moist conjunctiva, no lid-lag, PERRLA ENMT: NC/AT,Oropharynx clear, no erythema, exudates Neck:Supple, FROM, no masses, or JVD, No carotid bruits; No thyromegaly Lungs: Equal air entry with crackles in the posterior bases more so on the left , Clear to percussion, Normal respiratory effort, no accessory muscle use Cardiovascular: Heart regular in rate and rhythm, No murmurs, gallops, or rubs no peripheral edema Abdominal: Soft Nontender, nom distended, no guarding, no rebound or rigidity, Normoactive bowel sounds No hepatomegaly, No splenomegaly, No palpable mass No abdominal wall hernia noted Skin: Normal temperature, tone, texture, turgor, No induration No subcutaneous nodules, No rash, lesions, No ulcers Extremities:No digital cyanosis No clubbing, Pedal pulses intact and symmetrical Radial pulses intact and symmetrical Normal gait and station, No calf tenderness Psychiatric: Oriented only to self pretty confused, Appropriate affect Intact judgement Neuro: Muscles Strength 5/5 in all 4 extremities, Sensation to light touch grossly present throughout, Cranial nerves II-XII grossly intact. No focal sensory deficits - Labs CBC & Chem 7: 07/31/17 05:00 07/31/17 05:30 Labs: Abnormal Lab Results - Last 24 Hours (Table) 07/30/17 07/30/17 07/30/17 Range/Units 17:29 17:30 17:30 RBC 3.05 L (4.30-5.90) m/uL Hgb 8.3 L (13.0-17.5) gm/dL Hct 27.2 L (39.0-53.0) % MCHC 30.3 L (31.0-37.0) g/dL RDW 20.1 H (11.5-15.5) % Plt Count 97 L (150-450) k/uL Monocytes # (Manual) (0-1.0) k/uL ABG pH (7.35-7.45) ABG pO2 (83-108) mmHg ABG HCO3 (21-25) mmol/L ABG Total CO2 (19-24) mmol/L ABG O2 Saturation (94-97) % Glucose (74-99) mg/dL POC Glucose (mg/dL) 100 H (75-99) mg/dL Calcium (8.4-10.2) mg/dL Magnesium 2.4 H (1.6-2.3) mg/dL ALT (21-72) U/L Total Protein (6.3-8.2) g/dL Albumin (3.5-5.0) g/dL 07/30/17 07/31/17 07/31/17 Range/Units 23:38 00:35 02:08 RBC (4.30-5.90) m/uL Hgb (13.0-17.5) gm/dL Hct (39.0-53.0) % MCHC (31.0-37.0) g/dL RDW (11.5-15.5) % Plt Count (150-450) k/uL Monocytes # (Manual) (0-1.0) k/uL ABG pH (7.35-7.45) ABG pO2 (83-108) mmHg ABG HCO3 (21-25) mmol/L ABG Total CO2 (19-24) mmol/L ABG O2 Saturation (94-97) % Glucose (74-99) mg/dL POC Glucose (mg/dL) 54 L 142 H 63 L (75-99) mg/dL Calcium (8.4-10.2) mg/dL Magnesium (1.6-2.3) mg/dL ALT (21-72) U/L Total Protein (6.3-8.2) g/dL Albumin (3.5-5.0) g/dL 07/31/17 07/31/17 07/31/17 Range/Units 03:36 05:00 05:30 RBC 3.00 L (4.30-5.90) m/uL Hgb 8.3 L (13.0-17.5) gm/dL Hct 26.2 L (39.0-53.0) % MCHC (31.0-37.0) g/dL RDW 20.2 H (11.5-15.5) % Plt Count 107 L (150-450) k/uL Monocytes # (Manual) 1.08 H (0-1.0) k/uL ABG pH (7.35-7.45) ABG pO2 (83-108) mmHg ABG HCO3 (21-25) mmol/L ABG Total CO2 (19-24) mmol/L ABG O2 Saturation (94-97) % Glucose 101 H (74-99) mg/dL POC Glucose (mg/dL) 121 H (75-99) mg/dL Calcium 8.1 L (8.4-10.2) mg/dL Magnesium (1.6-2.3) mg/dL ALT 12 L (21-72) U/L Total Protein 4.8 L (6.3-8.2) g/dL Albumin 2.3 L (3.5-5.0) g/dL 07/31/17 07/31/17 Range/Units 08:17 12:12 RBC (4.30-5.90) m/uL Hgb (13.0-17.5) gm/dL Hct (39.0-53.0) % MCHC (31.0-37.0) g/dL RDW (11.5-15.5) % Plt Count (150-450) k/uL Monocytes # (Manual) (0-1.0) k/uL ABG pH 7.47 H (7.35-7.45) ABG pO2 123 H (83-108) mmHg ABG HCO3 26 H (21-25) mmol/L ABG Total CO2 27 H (19-24) mmol/L ABG O2 Saturation 99.4 H (94-97) % Glucose (74-99) mg/dL POC Glucose (mg/dL) 71 L (75-99) mg/dL Calcium (8.4-10.2) mg/dL Magnesium (1.6-2.3) mg/dL ALT (21-72) U/L Total Protein (6.3-8.2) g/dL Albumin (3.5-5.0) g/dL Microbiology - Last 24 Hours (Table) 07/29/17 21:00 Urine Culture - Final Urine,Catheterized 07/29/17 23:48 Gram Stain - Preliminary Sputum Sputum Culture - Preliminary 07/29/17 21:00 Blood Culture - Preliminary Blood No Growth after 24 hours 07/29/17 20:47 Blood Culture - Preliminary Blood No Growth after 24 hours Assessment and Plan (1) Acute respiratory failure with hypoxia Narrative/Plan: * Secondary to pneumonia concern for aspiration in the setting of severe alcohol withdrawal and delirium tremens * Pulmonary following appreciate recommendations, chest x-ray this morning showing bibasilar airspace disease left greater than right * Continue with vent settings per pulmonary, patient sedated on propofol @ 55 mcg/kg/min * Continue to monitor blood pressure Current Visit: Yes Status: Acute Code(s): J96.01 - ACUTE RESPIRATORY FAILURE WITH HYPOXIA SNOMED Code(s): 38789868 (2) Pneumonia Narrative/Plan: * Concern for sepsis and aspiration pneumonia, sputum cultures indicating moderate of gram-positive cocci * Chest x-ray revealing bibasilar infiltrates left greater than right * continue patient on IV clindamycin day #2 will continue Rocephin Current Visit: Yes Status: Acute Code(s): J18.9 - PNEUMONIA, UNSPECIFIED ORGANISM SNOMED Code(s): 612223259 (3) Metabolic encephalopathy Narrative/Plan: * CT of the head showing no acute intracranial abnormality * Confusion likely secondary to alcohol withdrawal superimposed on multiple electrolyte abnormalities * Continue with Ativan when necessary with symptom triggered CIWA protocol Current Visit: Yes Status: Acute Code(s): G93.41 - METABOLIC ENCEPHALOPATHY SNOMED Code(s): 37261207 (4) Acute blood loss anemia Narrative/Plan: * Hemoglobin holding stable at 9.4 after having 1 unit packed RBC transfusion * We'll continue to monitor, likely secondary to problem number #2 * EGD showing ulcers and erosions in the distal esophagus consistent with grade D reflux esophagitis, also status post balloon dilatation of distal esophageal stricture * Continue with PPI therapy, Current Visit: Yes Status: Acute Code(s): D62 - ACUTE POSTHEMORRHAGIC ANEMIA SNOMED Code(s): 506084173 (5) Upper GI bleed Current Visit: Yes Status: Acute Code(s): K92.2 - GASTROINTESTINAL HEMORRHAGE, UNSPECIFIED SNOMED Code(s): 74885562 (6) GERD with esophagitis Narrative/Plan: * Grade D esophagitis Current Visit: No Status: Chronic Code(s): K21.0 - GASTRO-ESOPHAGEAL REFLUX DISEASE WITH ESOPHAGITIS SNOMED Code(s): 100005490 (7) Hypocalcemia Narrative/Plan: * Replace and recheck in the morning Current Visit: Yes Status: Acute Priority: High Code(s): E83.51 - HYPOCALCEMIA SNOMED Code(s): 3962454 (8) Hypomagnesemia Narrative/Plan: * Replace with 4 g we'll recheck in the morning Current Visit: Yes Status: Acute Code(s): E83.42 - HYPOMAGNESEMIA SNOMED Code(s): 754166705 (9) Alcohol dependence Current Visit: No Status: Acute Code(s): F10.20 - ALCOHOL DEPENDENCE, UNCOMPLICATED SNOMED Code(s): 72601752 (10) Acute kidney injury Narrative/Plan: * Likely prerenal secondary to dehydration * Creatinine trending down from 2.4- back to normal * continue with clear liquids we'll initiate 1/2 normal saline 75 mL an hour Current Visit: Yes Status: Resolved Code(s): N17.9 - ACUTE KIDNEY FAILURE, UNSPECIFIED SNOMED Code(s): 00020472 (11) Hypoglycemia Current Visit: Yes Status: Acute Code(s): E16.2 - HYPOGLYCEMIA, UNSPECIFIED SNOMED Code(s): 777024909
--- NOTE | 2017-07-31 15:32 | P.PN ---
Subjective Progress Note Date: 07/31/17 Principal diagnosis: Acute hypoxic respiratory failure secondary to alcohol withdrawal and delirium tremens with probable aspiration. This is a 47-year-old gentleman who follows with Dr. Perez is his primary care physician. He has a history of hypertension, seizure disorder, bipolar disorder , depression, esophageal stricture and reflux esophagitis. He also has a history of alcoholism with subsequent alcoholic pancreatitis, alcoholic seizures and some dementia. He has continued and ongoing daily alcohol abuse. He presented here back on 07/26/2017 to the emergency room from [facility]. He was transferred due to the GI bleeding. He was admitted to the general medical floor. He had undergone EGD on 07/28/2017 and was found to have distal esophageal stricture status post balloon dilatation. There is erosion some ulcerations in the distal esophagus consistent with LA grade D reflux esophagitis. He's been on Protonix 40 mg twice a day. The patient had been placed on the CIWA protocol however he had become increasingly agitated. A computed tomography scan of the brain revealed no acute intracranial hemorrhage, mass effect or midline shift. Last evening he became more agitated and restless. He was given Ativan per protocol. Eventually he became hypoxic and was transferred to the intensive care unit. He was intubated and placed on mechanical ventilator. He is seen today in consultation in the intensive care unit. Today's chest x-ray reveals borderline cardiomegaly, bibasilar airspace disease left greater than right with small left effusion. Current vent settings are assist-control mode at a rate of 20, tidal volume 350, FiO2 35% and a PEEP of 5. Morning blood gases reveal a P O2 of 159, pCO2 41 and a pH of 7.40 that was on 40% FiO2. He is currently sedated on propofol at 40 mcg/kg/m. He has D10 running at 50 MLS per hour for low blood sugars. He is currently on ceftriaxone and clindamycin. White count 5.7. Hemoglobin 8.5. Platelet count 81,000. Sodium 140. Potassium 3.4. Creatinine 0.74. Blood glucose 100. He is hypothermic with a rectal temp of 94.7 warm and has been applied. He is currently hemodynamically stable and not requiring any pressors. Reevaluated today on 07/31/2017, patient remains on mechanical ventilation, sedated, on propofol. Today I gave the patient a trial of sedation holiday, and as soon as the propofol wore off, patient was noted to be extremely agitated , tachycardic, restless, thrashing in bed, hence I felt that the patient is not quite ready for any weaning trials at this point. Patient will need to be further detoxified. Placed back on propofol, placed back on all the medications , and we'll continue nutritional support. His ventilator settings were reviewed he is on tidal volume of 350 FiO2 of 35%, assist control rate of 20 and PEEP of 5. ABG showed a pO2 of 123 pCO2 of 36 pH of 7.47. CBC showed a hemoglobin of 8.3 WBC count of 14.9 platelets are low related to his liver disease. Basic metabolic profile and renal profile were noted to be normal. Chest x-ray showed improved aeration of the bases especially the left base compared to yesterday's chest x-ray. Objective - Vital Signs Vital signs: Vital Signs Temp 98.4 F 07/31/17 12:00 Pulse 96 07/31/17 15:19 Resp 20 07/31/17 15:19 BP 108/57 07/31/17 07:00 Pulse Ox 99 07/31/17 13:00 Intake & Output 07/30/17 07/31/17 07/31/17 18:59 06:59 18:59 Intake Total 3120 917.788 488 Output Total 750 940 455 Balance 2370 -22.212 33 Weight 57 kg Intake: IV 2650 600 300 Dextrose 10% in Water 500 450 600 300 ml In Empty Bag 1 bag @ 50 mls/hr IV .Q10H RADHA Rx #:[id number] Magnesium Sulfate-D5w Pmx 200 1 gm In Dextrose/Water 1 100ml.bag @ 100 mls/hr IVPB Q1H RADHA Rx#: [id number] Sodium Chloride 0.9% 1, 2000 000 ml @ 999 mls/hr IV . Q1H1M ONE Rx#:[id number] Intake, IV Titration 100 76.788 Amount Propofol 1,000 mg In 100 76.788 Empty Bag 1 bag @ Titrate IV .Q0M RADHA Rx#: [id number] Tube Feeding 220 241 188 Other 150 Output: Urine 750 940 455 Other: Voiding Method Indwelling Catheter Indwelling Catheter Indwelling Catheter # Voids 1 ABP, PAP, CO, CI - Last Documented Arterial Blood Pressure 91/54 - Exam GENERAL EXAM: Intubated, sedated, in no apparent distress. However noted to be extremely agitated and restless S1 as the propofol was placed on hold. HEAD: Normocephalic. Atraumatic EYES: Normal reaction of pupils, equal size. NOSE: Clear with pink turbinates. THROAT: Oral endotracheal and gastric tube secured in place. No erythema or exudates. NECK: No masses, no JVD. CHEST: No chest wall deformity. LUNGS: Equal air entry with crackles in the posterior bases more so on the left. CVS: S1 and S2 normal with no audible murmur, regular rhythm. ABDOMEN: No hepatosplenomegaly, normal bowel sounds, no guarding or rigidity. SPINE: No scoliosis or deformity SKIN: No rashes CENTRAL NERVOUS SYSTEM: Sedated. EXTREMITIES: There is no peripheral edema. No clubbing, no cyanosis. Peripheral pulses are intact. - Labs CBC & Chem 7: 07/31/17 05:00 07/31/17 05:30 Labs: Abnormal Lab Results - Last 24 Hours (Table) 07/30/17 07/30/17 07/30/17 Range/Units 17:29 17:30 17:30 RBC 3.05 L (4.30-5.90) m/uL Hgb 8.3 L (13.0-17.5) gm/dL Hct 27.2 L (39.0-53.0) % MCHC 30.3 L (31.0-37.0) g/dL RDW 20.1 H (11.5-15.5) % Plt Count 97 L (150-450) k/uL Monocytes # (Manual) (0-1.0) k/uL ABG pH (7.35-7.45) ABG pO2 (83-108) mmHg ABG HCO3 (21-25) mmol/L ABG Total CO2 (19-24) mmol/L ABG O2 Saturation (94-97) % Glucose (74-99) mg/dL POC Glucose (mg/dL) 100 H (75-99) mg/dL Calcium (8.4-10.2) mg/dL Magnesium 2.4 H (1.6-2.3) mg/dL ALT (21-72) U/L Total Protein (6.3-8.2) g/dL Albumin (3.5-5.0) g/dL 07/30/17 07/31/17 07/31/17 Range/Units 23:38 00:35 02:08 RBC (4.30-5.90) m/uL Hgb (13.0-17.5) gm/dL Hct (39.0-53.0) % MCHC (31.0-37.0) g/dL RDW (11.5-15.5) % Plt Count (150-450) k/uL Monocytes # (Manual) (0-1.0) k/uL ABG pH (7.35-7.45) ABG pO2 (83-108) mmHg ABG HCO3 (21-25) mmol/L ABG Total CO2 (19-24) mmol/L ABG O2 Saturation (94-97) % Glucose (74-99) mg/dL POC Glucose (mg/dL) 54 L 142 H 63 L (75-99) mg/dL Calcium (8.4-10.2) mg/dL Magnesium (1.6-2.3) mg/dL ALT (21-72) U/L Total Protein (6.3-8.2) g/dL Albumin (3.5-5.0) g/dL 07/31/17 07/31/17 07/31/17 Range/Units 03:36 05:00 05:30 RBC 3.00 L (4.30-5.90) m/uL Hgb 8.3 L (13.0-17.5) gm/dL Hct 26.2 L (39.0-53.0) % MCHC (31.0-37.0) g/dL RDW 20.2 H (11.5-15.5) % Plt Count 107 L (150-450) k/uL Monocytes # (Manual) 1.08 H (0-1.0) k/uL ABG pH (7.35-7.45) ABG pO2 (83-108) mmHg ABG HCO3 (21-25) mmol/L ABG Total CO2 (19-24) mmol/L ABG O2 Saturation (94-97) % Glucose 101 H (74-99) mg/dL POC Glucose (mg/dL) 121 H (75-99) mg/dL Calcium 8.1 L (8.4-10.2) mg/dL Magnesium (1.6-2.3) mg/dL ALT 12 L (21-72) U/L Total Protein 4.8 L (6.3-8.2) g/dL Albumin 2.3 L (3.5-5.0) g/dL 07/31/17 07/31/17 Range/Units 08:17 12:12 RBC (4.30-5.90) m/uL Hgb (13.0-17.5) gm/dL Hct (39.0-53.0) % MCHC (31.0-37.0) g/dL RDW (11.5-15.5) % Plt Count (150-450) k/uL Monocytes # (Manual) (0-1.0) k/uL ABG pH 7.47 H (7.35-7.45) ABG pO2 123 H (83-108) mmHg ABG HCO3 26 H (21-25) mmol/L ABG Total CO2 27 H (19-24) mmol/L ABG O2 Saturation 99.4 H (94-97) % Glucose (74-99) mg/dL POC Glucose (mg/dL) 71 L (75-99) mg/dL Calcium (8.4-10.2) mg/dL Magnesium (1.6-2.3) mg/dL ALT (21-72) U/L Total Protein (6.3-8.2) g/dL Albumin (3.5-5.0) g/dL Microbiology - Last 24 Hours (Table) 07/29/17 21:00 Urine Culture - Final Urine,Catheterized 07/29/17 23:48 Gram Stain - Preliminary Sputum Sputum Culture - Preliminary 07/29/17 21:00 Blood Culture - Preliminary Blood No Growth after 24 hours 07/29/17 20:47 Blood Culture - Preliminary Blood No Growth after 24 hours Assessment and Plan Assessment: #1 Acute hypoxic respiratory failure secondary to alcohol withdrawal syndrome with delirium tremens and probable aspiration. #2 Acute alcohol withdrawal. Admits to daily vodka consumption. #3 Acute GI bleeding secondary to alcoholism with erosions and ulcerations in the distal esophagus consistent with LA grade decrease reflux esophagitis. He also had distal esophageal stricture and is status post balloon dilatation on . He required 1 unit of packed red blood cells thus far. Current hemoglobin 8.5. On Protonix 40 mg IVP twice a day. #4 Hypoglycemia secondary to alcohol withdrawal currently requiring D10 at 50 MLS per hour. Blood glucose 100. #5 Aspiration pneumonia currently on ceftriaxone and clindamycin. Patient is pen ALLERGIC. #6 History of seizure disorder secondary to alcoholism and epilepsy as a child. Currently on Keppra and valproic acid. #7 History of hypertension. #8 History of bipolar disorder. Recommendation: Clearly the patient is not ready for weaning based on his response to holding sedation, patient will be placed back on propofol, continue nutritional support, continue antibiotics, continue GI and DVT prophylaxis, we will readdress on a daily basis. Critical care time is 34 minutes. Time with Patient: Greater than 30
[2017-07-31] MEDS: THIAMINE 100 MG TAB PO SCH (16:20)
[2017-07-31] MEDS: cefTRIAXone IN SWFI 1,000 MG/10 ML SYRINGE IVP SCH (17:00)
[2017-07-31 18:31] LABS: Glucose,Whole Blood 105 mg/dL (75-99)
--- NOTE | 2017-07-31 22:05 | P.PN ---
Subjective Progress Note Date: 07/30/17 Principal diagnosis: GI bleeding The patient had no further bleeding, however, he had to be intubated last night and was sedated and placed on mechanical ventilation because of DVTs and respiratory distress. An NG tube is returning very faint pinkish returns. He is receiving feedings per NG. Objective - Vital Signs Vital signs: Vital Signs Temp 94.7 F L 07/30/17 12:00 Pulse 75 07/30/17 13:00 Resp 22 07/30/17 13:00 BP 125/72 07/29/17 22:30 Pulse Ox 99 07/30/17 13:00 Intake & Output 07/29/17 07/30/17 07/30/17 18:59 06:59 18:59 Intake Total 2960 807.72 690 Output Total 2 590 470 Balance 2958 217.72 220 Weight 56.8 kg 56.8 kg Intake: IV 675 500 Dextrose 10% in Water 500 350 300 ml In Empty Bag 1 bag @ 50 mls/hr IV .Q10H [facility] Rx #:[id number] Dextrose 5% in Water 1, 225 000 ml @ 75 mls/hr IV . [id number] ONE with Mvi, Adult No.4 with Vit K 10 ml with Thiamine 100 mg with Folic Acid 1 mg Rx#: [id number] Magnesium Sulfate-D5w Pmx 200 1 gm In Dextrose/Water 1 100ml.bag @ 100 mls/hr IVPB Q1H [facility] Rx#: [id number] levETIRAcetam IV 500 mg 100 In Sodium Chloride 0.9% 100 ml @ 400 mls/hr IVPB Q12HR [facility] Rx#:[id number] Intake, IV Titration 1600 72.72 Amount Calcium Gluconate 2,000 100 mg In Sodium Chloride 0.9 % 100 ml @ 100 mls/hr IVPB ONCE ONE Rx#: [id number] Magnesium Sulfate-D5w Pmx 400 1 gm In Dextrose/Water 1 100ml.bag @ 100 mls/hr IVPB Q1H [facility] Rx#: [id number] Propofol 1,000 mg In 72.72 Empty Bag 1 bag @ Titrate IV .Q0M [facility] Rx#: [id number] Sodium Chloride 0.45% 1, 600 000 ml @ 75 mls/hr IV . [id number] [facility] Rx#:[id number] Sodium Phosphate 10 mmol 500 In Sodium Chloride 0.9% 250 ml @ 125 mls/hr IVPB Q2H [facility] Rx#:[id number] Oral 1360 Tube Feeding 100 Other 60 90 Output: Urine 2 590 470 Other: Voiding Method Incontinent Indwelling Catheter Indwelling Catheter # Voids 1 ABP, PAP, CO, CI - Last Documented Arterial Blood Pressure 106/63 - Exam General: Appears stated age, sedated on mechanical ventilation Head and neck: Normocephalic and atraumatic, conjunctivae pink and sclerae not icteric, mucous membranes moist and pink. No masses in the neck or tracheal shifts Lungs: Clear to auscultation with no dullness to percussion Heart: Regular, no abnormal sounds, murmurs, gallops or friction rubs Abdomen: Soft, no masses or organomegalies. No tenderness or guarding. Bowel sounds present Extremities: No clubbing, cyanosis or edema Neurologic: Sedated, on mechanical ventilation - Labs CBC & Chem 7: 07/31/17 05:00 07/31/17 05:30 Labs: Abnormal Lab Results - Last 24 Hours (Table) 07/29/17 07/29/17 07/29/17 Range/Units 16:53 17:03 17:25 RBC (4.30-5.90) m/uL Hgb (13.0-17.5) gm/dL Hct (39.0-53.0) % RDW (11.5-15.5) % Plt Count (150-450) k/uL Lymphocytes # (1.0-4.8) k/uL ABG pH (7.35-7.45) ABG pCO2 (35-45) mmHg ABG pO2 (83-108) mmHg ABG HCO3 (21-25) mmol/L ABG Total CO2 (19-24) mmol/L ABG O2 Saturation (94-97) % Potassium (3.5-5.1) mmol/L BUN (9-20) mg/dL Glucose (74-99) mg/dL POC Glucose (mg/dL) 44 L 61 L 59 L (75-99) mg/dL Plasma Lactic Acid Reji (0.7-2.0) mmol/L Calcium (8.4-10.2) mg/dL Magnesium (1.6-2.3) mg/dL ALT (21-72) U/L Total Protein (6.3-8.2) g/dL Albumin (3.5-5.0) g/dL Urine Glucose (UA) (Negative) Urine Blood (Negative) Urine RBC (0-5) /hpf Urine Bacteria (None) /hpf Urine Mucus (None) /hpf 07/29/17 07/29/17 07/29/17 Range/Units 17:37 17:49 18:05 RBC (4.30-5.90) m/uL Hgb (13.0-17.5) gm/dL Hct (39.0-53.0) % RDW (11.5-15.5) % Plt Count (150-450) k/uL Lymphocytes # (1.0-4.8) k/uL ABG pH (7.35-7.45) ABG pCO2 (35-45) mmHg ABG pO2 (83-108) mmHg ABG HCO3 (21-25) mmol/L ABG Total CO2 (19-24) mmol/L ABG O2 Saturation (94-97) % Potassium (3.5-5.1) mmol/L BUN (9-20) mg/dL Glucose (74-99) mg/dL POC Glucose (mg/dL) 41 L 51 L 27 L (75-99) mg/dL Plasma Lactic Acid Reji (0.7-2.0) mmol/L Calcium (8.4-10.2) mg/dL Magnesium (1.6-2.3) mg/dL ALT (21-72) U/L Total Protein (6.3-8.2) g/dL Albumin (3.5-5.0) g/dL Urine Glucose (UA) (Negative) Urine Blood (Negative) Urine RBC (0-5) /hpf Urine Bacteria (None) /hpf Urine Mucus (None) /hpf 07/29/17 07/29/17 07/29/17 Range/Units 18:06 18:26 19:54 RBC (4.30-5.90) m/uL Hgb (13.0-17.5) gm/dL Hct (39.0-53.0) % RDW (11.5-15.5) % Plt Count (150-450) k/uL Lymphocytes # (1.0-4.8) k/uL ABG pH (7.35-7.45) ABG pCO2 (35-45) mmHg ABG pO2 (83-108) mmHg ABG HCO3 (21-25) mmol/L ABG Total CO2 (19-24) mmol/L ABG O2 Saturation (94-97) % Potassium (3.5-5.1) mmol/L BUN (9-20) mg/dL Glucose 247 H (74-99) mg/dL POC Glucose (mg/dL) 185 H 62 L (75-99) mg/dL Plasma Lactic Acid Reji (0.7-2.0) mmol/L Calcium (8.4-10.2) mg/dL Magnesium (1.6-2.3) mg/dL ALT (21-72) U/L Total Protein (6.3-8.2) g/dL Albumin (3.5-5.0) g/dL Urine Glucose (UA) (Negative) Urine Blood (Negative) Urine RBC (0-5) /hpf Urine Bacteria (None) /hpf Urine Mucus (None) /hpf 07/29/17 07/29/17 07/29/17 Range/Units 20:16 21:00 21:00 RBC 3.10 L (4.30-5.90) m/uL Hgb 8.6 L (13.0-17.5) gm/dL Hct 27.1 L (39.0-53.0) % RDW 18.9 H (11.5-15.5) % Plt Count 84 L (150-450) k/uL Lymphocytes # 0.7 L (1.0-4.8) k/uL ABG pH (7.35-7.45) ABG pCO2 (35-45) mmHg ABG pO2 (83-108) mmHg ABG HCO3 (21-25) mmol/L ABG Total CO2 (19-24) mmol/L ABG O2 Saturation (94-97) % Potassium (3.5-5.1) mmol/L BUN (9-20) mg/dL Glucose (74-99) mg/dL POC Glucose (mg/dL) 114 H (75-99) mg/dL Plasma Lactic Acid Reji 2.2 H* (0.7-2.0) mmol/L Calcium (8.4-10.2) mg/dL Magnesium (1.6-2.3) mg/dL ALT (21-72) U/L Total Protein (6.3-8.2) g/dL Albumin (3.5-5.0) g/dL Urine Glucose (UA) (Negative) Urine Blood (Negative) Urine RBC (0-5) /hpf Urine Bacteria (None) /hpf Urine Mucus (None) /hpf 07/29/17 07/29/17 07/29/17 Range/Units 21:00 21:00 23:24 RBC (4.30-5.90) m/uL Hgb (13.0-17.5) gm/dL Hct (39.0-53.0) % RDW (11.5-15.5) % Plt Count (150-450) k/uL Lymphocytes # (1.0-4.8) k/uL ABG pH 7.50 H (7.35-7.45) ABG pCO2 33 L (35-45) mmHg ABG pO2 >400 H (83-108) mmHg ABG HCO3 (21-25) mmol/L ABG Total CO2 26 H (19-24) mmol/L ABG O2 Saturation 100.0 H (94-97) % Potassium (3.5-5.1) mmol/L BUN 8 L (9-20) mg/dL Glucose (74-99) mg/dL POC Glucose (mg/dL) (75-99) mg/dL Plasma Lactic Acid Reji (0.7-2.0) mmol/L Calcium (8.4-10.2) mg/dL Magnesium (1.6-2.3) mg/dL ALT 17 L (21-72) U/L Total Protein 5.3 L (6.3-8.2) g/dL Albumin 2.9 L (3.5-5.0) g/dL Urine Glucose (UA) 4+ H (Negative) Urine Blood Trace H (Negative) Urine RBC 9 H (0-5) /hpf Urine Bacteria Rare H (None) /hpf Urine Mucus Rare H (None) /hpf 07/30/17 07/30/17 07/30/17 Range/Units 00:03 06:03 06:05 RBC 3.07 L (4.30-5.90) m/uL Hgb 8.5 L (13.0-17.5) gm/dL Hct 26.9 L (39.0-53.0) % RDW 19.3 H (11.5-15.5) % Plt Count 81 L (150-450) k/uL Lymphocytes # (1.0-4.8) k/uL ABG pH (7.35-7.45) ABG pCO2 (35-45) mmHg ABG pO2 (83-108) mmHg ABG HCO3 (21-25) mmol/L ABG Total CO2 (19-24) mmol/L ABG O2 Saturation (94-97) % Potassium (3.5-5.1) mmol/L BUN (9-20) mg/dL Glucose (74-99) mg/dL POC Glucose (mg/dL) 108 H 102 H (75-99) mg/dL Plasma Lactic Acid Reji (0.7-2.0) mmol/L Calcium (8.4-10.2) mg/dL Magnesium (1.6-2.3) mg/dL ALT (21-72) U/L Total Protein (6.3-8.2) g/dL Albumin (3.5-5.0) g/dL Urine Glucose (UA) (Negative) Urine Blood (Negative) Urine RBC (0-5) /hpf Urine Bacteria (None) /hpf Urine Mucus (None) /hpf 07/30/17 07/30/17 07/30/17 Range/Units 06:05 07:39 11:55 RBC (4.30-5.90) m/uL Hgb (13.0-17.5) gm/dL Hct (39.0-53.0) % RDW (11.5-15.5) % Plt Count (150-450) k/uL Lymphocytes # (1.0-4.8) k/uL ABG pH (7.35-7.45) ABG pCO2 (35-45) mmHg ABG pO2 159 H (83-108) mmHg ABG HCO3 28 H (21-25) mmol/L ABG Total CO2 29 H (19-24) mmol/L ABG O2 Saturation 100.0 H (94-97) % Potassium 3.4 L (3.5-5.1) mmol/L BUN (9-20) mg/dL Glucose 100 H (74-99) mg/dL POC Glucose (mg/dL) 100 H (75-99) mg/dL Plasma Lactic Acid Reji (0.7-2.0) mmol/L Calcium 8.2 L (8.4-10.2) mg/dL Magnesium (1.6-2.3) mg/dL ALT (21-72) U/L Total Protein (6.3-8.2) g/dL Albumin (3.5-5.0) g/dL Urine Glucose (UA) (Negative) Urine Blood (Negative) Urine RBC (0-5) /hpf Urine Bacteria (None) /hpf Urine Mucus (None) /hpf 07/30/17 Range/Units 12:00 RBC (4.30-5.90) m/uL Hgb (13.0-17.5) gm/dL Hct (39.0-53.0) % RDW (11.5-15.5) % Plt Count (150-450) k/uL Lymphocytes # (1.0-4.8) k/uL ABG pH (7.35-7.45) ABG pCO2 (35-45) mmHg ABG pO2 (83-108) mmHg ABG HCO3 (21-25) mmol/L ABG Total CO2 (19-24) mmol/L ABG O2 Saturation (94-97) % Potassium (3.5-5.1) mmol/L BUN (9-20) mg/dL Glucose (74-99) mg/dL POC Glucose (mg/dL) (75-99) mg/dL Plasma Lactic Acid Reji (0.7-2.0) mmol/L Calcium (8.4-10.2) mg/dL Magnesium 2.9 H (1.6-2.3) mg/dL ALT (21-72) U/L Total Protein (6.3-8.2) g/dL Albumin (3.5-5.0) g/dL Urine Glucose (UA) (Negative) Urine Blood (Negative) Urine RBC (0-5) /hpf Urine Bacteria (None) /hpf Urine Mucus (None) /hpf Microbiology - Last 24 Hours (Table) 07/29/17 23:48 Sputum Culture - Preliminary Sputum 07/29/17 21:00 Urine Culture - Preliminary Urine,Catheterized Assessment and Plan Assessment: GI bleeding related to esophagitis and alcohol withdrawal with possible aspiration and respiratory failure on mechanical ventilation. Plan: Will continue to monitor blood counts closely and maintain on PPI. No further endoscopic intervention is planned at this time.
[2017-08-01] MEDS: PROPOFOL 1,000 MG in EMPTY BAG 1 BAG IV SCH (01:02)
[2017-08-01] MEDS: CLINDAMYCIN 600 MG in DEXTROSE 5% IN WATER 50 ML IVPB SCH ×6 (01:02→17:19)
[2017-08-01 01:14] LABS: Glucose,Whole Blood 71 mg/dL (75-99)
[2017-08-01] MEDS: IPRATROPIUM-ALBUTEROL 3 ML NEB INHALATION SCH ×4 (02:59→19:30)
[2017-08-01 04:21] LABS: Glucose,Whole Blood 43 mg/dL (75-99)
[2017-08-01] MEDS ORDERED: DEXTROSE 10 % IN WATER 250 ML IV STA (04:21)
[2017-08-01] MEDS: DEXTROSE 10% IN WATER 500 ML in EMPTY BAG 1 BAG IV SCH ×3 (04:30→13:07)
[2017-08-01 04:58] LABS: Glucose,Whole Blood 181 mg/dL (75-99)
[2017-08-01 05:13] LABS: Anisocytosis Moderate; HGB 7.8 gm/dL (13.0-17.5); Hypochromasia Marked; MCH 28.1 pg (25.0-35.0); MCHC 31.1 g/dL (31.0-37.0); MCV 90.3 fL (80.0-100.0); Macrocytosis Slight; Mean Platelet Volume 7.8; Platelet Count 130 k/uL (150-450); Poikilocytosis Slight; RBC 2.78 m/uL (4.30-5.90); RDW 20.7 % (11.5-15.5); WBC 3.4 k/uL (3.8-10.6)
[2017-08-01 05:25] LABS: ALT 15 U/L (21-72); AST 14 U/L (17-59); Albumin 2.2 g/dL (3.5-5.0); Alkaline Phosphatase 81 U/L (38-126); Anion Gap 7 mmol/L; Blood Urea Nitrogen 12 mg/dL (9-20); Calcium 8.1 mg/dL (8.4-10.2); Carbon Dioxide 26 mmol/L (22-30); Chloride 105 mmol/L (98-107); Glucose 203 mg/dL (74-99); Magnesium 1.7 mg/dL (1.6-2.3); Phosphorus 3.6 mg/dL (2.5-4.5); Potassium 3.6 mmol/L (3.5-5.1); Sodium 138 mmol/L (137-145); Total Bilirubin 0.1 mg/dL (0.2-1.3); Total Protein 4.5 g/dL (6.3-8.2)
[2017-08-01] MEDS ORDERED: Potassium Replacement Protocol 1 EACH MISC MISCELLANE PRN (05:33)
[2017-08-01] MEDS ORDERED: Magnesium Replacement Protocol 1 EACH MISC MISCELLANE PRN (05:34)
[2017-08-01 05:42] LABS: Band Neutrophils % 2 %; Basophils # (M) 0.03 k/uL (0-0.2); Eosinophils # (M) 0.14 k/uL (0-0.7); Lymphocytes # (M) 0.99 k/uL (1.0-4.8); Monocytes # (M) 0.65 k/uL (0-1.0); Myelocytes # (M) 0.03 k/uL (0); Myelocytes % 1 %; Neutrophils % (M) 45 %; Nucleated Red Blood Cells 0 /100 WBC (0-0); Total Cells Counted 200
[2017-08-01 05:44] LABS: Polychromasia Present
[2017-08-01] MEDS ORDERED: POTASSIUM BICARBONATE/CIT AC 20 MEQ TABLET.EFF NG-TUBE SCH (06:00)
[2017-08-01] MEDS ORDERED: SODIUM CHLORIDE 0.9% 1,000 ML IV ONE (06:07)
[2017-08-01 07:23] LABS: ABG Base Excess -0.5 mmol/L; ABG HCO3 24 mmol/L (21-25); ABG Oxygen Saturation 99.5 % (94-97); ABG PCO2 37 mmHg (35-45); ABG PH 7.42 (7.35-7.45); ABG PO2 134 mmHg (83-108); ABG TCO2 25 mmol/L (19-24)
[2017-08-01] MEDS: MAGNESIUM SULFATE-D5W PMX 1 GM in DEXTROSE/WATER 1 100ML.BAG IVPB SCH ×2 (07:39→09:56)
--- NOTE | 2017-08-01 08:17 | XR ---
EXAMINATION TYPE: XR chest 1V portable DATE OF EXAM: 08/01/2017 COMPARISON: Prior chest x-ray 07/31/2017 HISTORY: Intubated TECHNIQUE: Single frontal view of the chest is obtained. FINDINGS: Endotracheal tube and NG tube, left subclavian central venous catheter are overlying appro priate positions, there is no evident pneumothorax or pleural effusion. Patchy basilar density is not ed, heart size is thought to be stable. There are overlying leads. Patient is rotated. IMPRESSION: Rotated exam. Probable basilar atelectasis, correlate to exclude pneumonia. Follow-up re commended.
[2017-08-01 08:34] LABS: Glucose,Whole Blood 119 mg/dL (75-99)
[2017-08-01] MEDS: CALCIUM CARB-VIT D 500MG-200UN 1 EACH TAB PO SCH ×3 (09:58→21:50)
[2017-08-01] MEDS: VALPROIC ACID ORAL SOLN 250 MG/5 ML CUP PO SCH ×2 (09:58→21:50)
[2017-08-01] MEDS: CHLORHEXIDINE GLUCONATE 15 ML CUP MUCOUS MEM SCH ×2 (09:58→21:49)
[2017-08-01] MEDS: PANTOPRAZOLE 40 MG/10 ML VIAL IVP SCH ×2 (09:59→21:49)
[2017-08-01] MEDS: MAGNESIUM OXIDE 400 MG TAB PO SCH ×2 (09:59→21:49)
[2017-08-01] MEDS: PROPRANOLOL 20 MG TAB PO SCH ×2 (10:00→21:50)
[2017-08-01] MEDS: guaiFENesin 600 MG TABLET.ER PO SCH ×2 (10:00→21:49)
[2017-08-01] MEDS: cefTRIAXone IN SWFI 1,000 MG/10 ML SYRINGE IVP SCH (10:25)
[2017-08-01 10:33] LABS: Glucose,Whole Blood 104 mg/dL (75-99)
--- NOTE | 2017-08-01 11:28 | P.PN ---
Subjective Progress Note Date: 08/01/17 Principal diagnosis: The patient is a 47-year-old male that was transferred here from [facility] with concerns for GI bleed after presented with reports of coffee-ground emesis and black colored stools on presentation his hemoglobin was 7.8 and got as low as 6.9, review of records indicated he had a EGD and July 30 that showed severe reflux esophagitis with multiple erosions and distal esophageal stricture consistent with a grade 4 esophagitis and antral gastritis. The patient reports a history of seizure disorder and liver cirrhosis, and also has chronic thrombocytopenia due to his alcoholism. Patient noted to have acute metabolic encephalopathy secondary to alcohol withdrawal and multiple electrolyte abnormalities as well as hypo-glycemia, the patient was transferred to the ICU and subsequently intubated secondary to acute hypoxic respiratory failure due to aspiration pneumonia and ongoing alcohol withdrawal , he was started several amps of D50 and started on D10. OG was placed the patient was started on high protein tube feeds Patient currently sedated on propofol drip, has had episodes of hypotension overnight, did receive a bolus of IV fluids last nightd waveforms with his arterial line monitoring. Discussed the bedside with Dr. Lomas, possibility of considering switching to another form of sedation the patient continues to require boluses for hypotension Objective - Vital Signs Vital signs: Vital Signs Temp 97.6 F 08/01/17 08:00 Pulse 100 08/01/17 11:04 Resp 23 08/01/17 10:00 BP 98/57 08/01/17 04:00 Pulse Ox 98 08/01/17 10:00 Intake & Output 07/31/17 08/01/17 08/01/17 18:59 06:59 18:59 Intake Total 1462 0060.790 8414 Output Total 820 590 260 Balance 642 669.417 940 Intake: IV 550 1050 1100 Clindamycin 600 mg In 100 Dextrose 5% in Water 50 ml @ 100 mls/hr IVPB Q8HR [facility] Rx#:[id number] Dextrose 10 % in Water 250 250 ml @ 999 mls/hr IV [facility] Rx#:[id number] Dextrose 10% in Water 500 550 600 100 ml In Empty Bag 1 bag @ 50 mls/hr IV .Q10H [facility] Rx #:[id number] Sodium Chloride 0.9% 1, 1000 000 ml @ 999 mls/hr IV . Q1H1M [facility] Rx#:[id number] levETIRAcetam IV 500 mg 100 In Sodium Chloride 0.9% 100 ml @ 400 mls/hr IVPB Q12HR [facility] Rx#:[id number] Intake, IV Titration 100 115.417 100 Amount Magnesium Sulfate-D5w Pmx 100 1 gm In Dextrose/Water 1 100ml.bag @ 100 mls/hr IVPB Q1H [facility] Rx#: [id number] Propofol 1,000 mg In 100 115.417 Empty Bag 1 bag @ Titrate IV .Q0M [facility] Rx#: [id number] Tube Feeding 752 94 Other 60 Output: Urine 820 590 260 Other: Voiding Method Indwelling Catheter Indwelling Catheter ABP, PAP, CO, CI - Last Documented Arterial Blood Pressure 102/48 - Exam Constitutional: No acute distress, conversant, pleasant Eyes: Anicteric sclerae, moist conjunctiva, no lid-lag, PERRLA ENMT: NC/AT,Oropharynx clear, no erythema, exudates Neck:Supple, FROM, no masses, or JVD, No carotid bruits; No thyromegaly Lungs: Equal air entry with crackles in the posterior bases more so on the left , Clear to percussion, Normal respiratory effort, no accessory muscle use Cardiovascular: Heart regular in rate and rhythm, No murmurs, gallops, or rubs no peripheral edema Abdominal: Soft Nontender, nom distended, no guarding, no rebound or rigidity, Normoactive bowel sounds No hepatomegaly, No splenomegaly, No palpable mass No abdominal wall hernia noted Skin: Normal temperature, tone, texture, turgor, No induration No subcutaneous nodules, No rash, lesions, No ulcers Extremities:No digital cyanosis No clubbing, Pedal pulses intact and symmetrical Radial pulses intact and symmetrical Normal gait and station, No calf tenderness Psychiatric: Oriented only to self pretty confused, Appropriate affect Intact judgement Neuro: Muscles Strength 5/5 in all 4 extremities, Sensation to light touch grossly present throughout, Cranial nerves II-XII grossly intact. No focal sensory deficits - Labs CBC & Chem 7: 08/01/17 05:01 08/01/17 05:01 Labs: Abnormal Lab Results - Last 24 Hours (Table) 07/31/17 07/31/17 08/01/17 Range/Units 12:12 18:30 01:13 WBC (3.8-10.6) k/uL RBC (4.30-5.90) m/uL Hgb (13.0-17.5) gm/dL Hct (39.0-53.0) % RDW (11.5-15.5) % Plt Count (150-450) k/uL Lymphocytes # (Manual) (1.0-4.8) k/uL Myelocytes # (Manual) (0) k/uL ABG pO2 (83-108) mmHg ABG Total CO2 (19-24) mmol/L ABG O2 Saturation (94-97) % Creatinine (0.66-1.25) mg/dL Glucose (74-99) mg/dL POC Glucose (mg/dL) 71 L 105 H 71 L (75-99) mg/dL Calcium (8.4-10.2) mg/dL Total Bilirubin (0.2-1.3) mg/dL AST (17-59) U/L ALT (21-72) U/L Total Protein (6.3-8.2) g/dL Albumin (3.5-5.0) g/dL 08/01/17 08/01/17 08/01/17 Range/Units 04:17 04:56 05:01 WBC 3.4 L (3.8-10.6) k/uL RBC 2.78 L (4.30-5.90) m/uL Hgb 7.8 L (13.0-17.5) gm/dL Hct 25.0 L (39.0-53.0) % RDW 20.7 H (11.5-15.5) % Plt Count 130 L (150-450) k/uL Lymphocytes # (Manual) 0.99 L (1.0-4.8) k/uL Myelocytes # (Manual) 0.03 H (0) k/uL ABG pO2 (83-108) mmHg ABG Total CO2 (19-24) mmol/L ABG O2 Saturation (94-97) % Creatinine (0.66-1.25) mg/dL Glucose (74-99) mg/dL POC Glucose (mg/dL) 43 L 181 H (75-99) mg/dL Calcium (8.4-10.2) mg/dL Total Bilirubin (0.2-1.3) mg/dL AST (17-59) U/L ALT (21-72) U/L Total Protein (6.3-8.2) g/dL Albumin (3.5-5.0) g/dL 08/01/17 08/01/17 08/01/17 Range/Units 05:01 07:20 08:33 WBC (3.8-10.6) k/uL RBC (4.30-5.90) m/uL Hgb (13.0-17.5) gm/dL Hct (39.0-53.0) % RDW (11.5-15.5) % Plt Count (150-450) k/uL Lymphocytes # (Manual) (1.0-4.8) k/uL Myelocytes # (Manual) (0) k/uL ABG pO2 134 H (83-108) mmHg ABG Total CO2 25 H (19-24) mmol/L ABG O2 Saturation 99.5 H (94-97) % Creatinine 0.60 L (0.66-1.25) mg/dL Glucose 203 H (74-99) mg/dL POC Glucose (mg/dL) 119 H (75-99) mg/dL Calcium 8.1 L (8.4-10.2) mg/dL Total Bilirubin 0.1 L (0.2-1.3) mg/dL AST 14 L (17-59) U/L ALT 15 L (21-72) U/L Total Protein 4.5 L (6.3-8.2) g/dL Albumin 2.2 L (3.5-5.0) g/dL 08/01/17 Range/Units 10:30 WBC (3.8-10.6) k/uL RBC (4.30-5.90) m/uL Hgb (13.0-17.5) gm/dL Hct (39.0-53.0) % RDW (11.5-15.5) % Plt Count (150-450) k/uL Lymphocytes # (Manual) (1.0-4.8) k/uL Myelocytes # (Manual) (0) k/uL ABG pO2 (83-108) mmHg ABG Total CO2 (19-24) mmol/L ABG O2 Saturation (94-97) % Creatinine (0.66-1.25) mg/dL Glucose (74-99) mg/dL POC Glucose (mg/dL) 104 H (75-99) mg/dL Calcium (8.4-10.2) mg/dL Total Bilirubin (0.2-1.3) mg/dL AST (17-59) U/L ALT (21-72) U/L Total Protein (6.3-8.2) g/dL Albumin (3.5-5.0) g/dL Microbiology - Last 24 Hours (Table) 07/29/17 23:48 Gram Stain - Final Sputum Sputum Culture - Final 07/29/17 21:00 Blood Culture - Preliminary Blood No Growth after 48 hours 07/29/17 20:47 Blood Culture - Preliminary Blood No Growth after 48 hours 07/29/17 21:00 Urine Culture - Final Urine,Catheterized Assessment and Plan (1) Acute respiratory failure with hypoxia Narrative/Plan: * Secondary to pneumonia concern for aspiration in the setting of severe alcohol withdrawal and delirium tremens * Pulmonary following appreciate recommendations, chest x-ray this morning showing bibasilar airspace disease left greater than right * Continue with vent settings per pulmonary, patient sedated on propofol @ 55 mcg/kg/min * Continue to monitor blood pressure Current Visit: Yes Status: Acute Code(s): J96.01 - ACUTE RESPIRATORY FAILURE WITH HYPOXIA SNOMED Code(s): 57894964 (2) Pneumonia Narrative/Plan: * Concern for sepsis and aspiration pneumonia, sputum cultures indicating moderate of gram-positive cocci * Chest x-ray revealing bibasilar infiltrates left greater than right * continue patient on IV clindamycin day #3 will continue Rocephin Current Visit: Yes Status: Acute Code(s): J18.9 - PNEUMONIA, UNSPECIFIED ORGANISM SNOMED Code(s): 006268869 (3) Metabolic encephalopathy Narrative/Plan: * CT of the head showing no acute intracranial abnormality * Confusion likely secondary to alcohol withdrawal superimposed on multiple electrolyte abnormalities * Continue with Ativan when necessary with symptom triggered CIWA protocol Current Visit: Yes Status: Acute Code(s): G93.41 - METABOLIC ENCEPHALOPATHY SNOMED Code(s): 59361845 (4) Acute blood loss anemia Narrative/Plan: * Hemoglobin down to 7.8, will transfuse 1 u pRBC today this will be his second unit of blood * We'll continue to monitor, likely secondary to problem number #2 * EGD showing ulcers and erosions in the distal esophagus consistent with grade D reflux esophagitis, also status post balloon dilatation of distal esophageal stricture * Continue with PPI therapy, Current Visit: Yes Status: Acute Code(s): D62 - ACUTE POSTHEMORRHAGIC ANEMIA SNOMED Code(s): 571045082 (5) Upper GI bleed Current Visit: Yes Status: Acute Code(s): K92.2 - GASTROINTESTINAL HEMORRHAGE, UNSPECIFIED SNOMED Code(s): 91661193 (6) GERD with esophagitis Narrative/Plan: * Grade D esophagitis Current Visit: No Status: Chronic Code(s): K21.0 - GASTRO-ESOPHAGEAL REFLUX DISEASE WITH ESOPHAGITIS SNOMED Code(s): 233736538 (7) Hypocalcemia Narrative/Plan: * Replace and recheck in the morning Current Visit: Yes Status: Acute Priority: High Code(s): E83.51 - HYPOCALCEMIA SNOMED Code(s): 5684199 (8) Hypomagnesemia Narrative/Plan: * Replace with 4 g we'll recheck in the morning Current Visit: Yes Status: Acute Code(s): E83.42 - HYPOMAGNESEMIA SNOMED Code(s): 769158678 (9) Alcohol dependence Current Visit: No Status: Acute Code(s): F10.20 - ALCOHOL DEPENDENCE, UNCOMPLICATED SNOMED Code(s): 62985540 (10) Acute kidney injury Narrative/Plan: * Likely prerenal secondary to dehydration * Creatinine trending down from 2.4- back to normal * continue with clear liquids we'll initiate 1/2 normal saline 75 mL an hour Current Visit: Yes Status: Resolved Code(s): N17.9 - ACUTE KIDNEY FAILURE, UNSPECIFIED SNOMED Code(s): 74965366 (11) Hypoglycemia Current Visit: Yes Status: Acute Code(s): E16.2 - HYPOGLYCEMIA, UNSPECIFIED SNOMED Code(s): 955406787
--- NOTE | 2017-08-01 11:52 | P.PN ---
Subjective Progress Note Date: 08/01/17 Principal diagnosis: Hypoxemic respiratory failure Progress note dated 08/01/2017 This is a 47-year-old male with acute hypoxemic respiratory failure secondary to alcohol withdrawal syndrome. He also developed delirium tremens and trouble aspiration pneumonia. Admitted back on July 26 GI bleed and ended up being intubated on July 30 because of low blood oxygen level to alcohol withdrawal. Anyway, the patient's currently on the ventilator here in the ICU. We did do a spontaneous breathing trial on him. After daily eruption of sedation, weaning parameters included respiratory rate of 26 a tidal volume of 420 minute volume of 11.3 L/m negative inspiratory force of -17 and vital capacity 1.1 the patient had a rapid shallow breathing index of 59 and a positive cuff leak. The vent settings included the assist control mode rate of 20 tidal volume of 350 FiO2 of 35% to be dropped to 25% and a PEEP of 5. Arterial blood gases showed a PaO2 of 134 a PaCO2 of 37 and a pH of 7.41. The patient's IV included D10 at 50 mL an hour and propofol at 40 mics per kilogram per minute. The patient is awake and alert but looks a bit sleepy or lethargic. Chest x-ray does show some bibasilar atelectasis and/or infiltrate. Objective - Vital Signs Vital signs: Vital Signs Temp 97.6 F 08/01/17 08:00 Pulse 100 08/01/17 11:04 Resp 20 08/01/17 11:00 BP 98/57 08/01/17 04:00 Pulse Ox 98 08/01/17 11:00 Intake & Output 07/31/17 08/01/17 08/01/17 18:59 06:59 18:59 Intake Total 1462 4660.780 4929.25 Output Total 820 590 505 Balance 642 075.291 2709.25 Intake: IV 550 1050 1300 Clindamycin 600 mg In 100 50 Dextrose 5% in Water 50 ml @ 100 mls/hr IVPB Q8HR [facility] Rx#:[id number] Dextrose 10 % in Water 250 250 ml @ 999 mls/hr IV ONCE [facility] Rx#:[id number] Dextrose 10% in Water 500 550 600 150 ml In Empty Bag 1 bag @ 50 mls/hr IV .Q10H [facility] Rx #:[id number] Sodium Chloride 0.9% 1, 1000 000 ml @ 999 mls/hr IV . Q1H1M [facility] Rx#:[id number] levETIRAcetam IV 500 mg 100 100 In Sodium Chloride 0.9% 100 ml @ 400 mls/hr IVPB Q12HR [facility] Rx#:[id number] Intake, IV Titration 100 115.417 330.25 Amount Clindamycin 600 mg In 100 Dextrose 5% in Water 50 ml @ 100 mls/hr IVPB Q8HR [facility] Rx#:[id number] Magnesium Sulfate-D5w Pmx 200 1 gm In Dextrose/Water 1 100ml.bag @ 100 mls/hr IVPB Q1H [facility] Rx#: [id number] Propofol 1,000 mg In 100 115.417 30.25 Empty Bag 1 bag @ Titrate IV .Q0M [facility] Rx#: [id number] Tube Feeding 752 94 Other 60 Output: Urine 820 590 505 Other: Voiding Method Indwelling Catheter Indwelling Catheter ABP, PAP, CO, CI - Last Documented Arterial Blood Pressure 135/70 - Exam No acute distress, somnolent with an orally placed endotracheal tube and NG tube .HEENT examination is grossly unremarkable. Mucous membranes are moist. . Neck supple. Full range of motion. No adenopathy thyromegaly or neck vein distention. Cardiovascular examination reveals regular rhythm rate. S1-S2 normal. No S3 or S4. No discernible murmur noted. Lungs reveal diminished breath sounds. There are a few scattered rhonchi. No wheezes or crackles. Breath sounds are diminished throughout. Abdomen soft bowel sounds are heard. No masses or tenderness. Extremities are intact. No cyanosis clubbing or edema. Skin is without rash or lesion. Neurologic examination difficult to evaluate because of the patient's lethargy and sleepiness, but he does move all 4 extremities - Labs CBC & Chem 7: 08/01/17 05:01 08/01/17 05:01 Labs: Abnormal Lab Results - Last 24 Hours (Table) 07/31/17 07/31/17 08/01/17 Range/Units 12:12 18:30 01:13 WBC (3.8-10.6) k/uL RBC (4.30-5.90) m/uL Hgb (13.0-17.5) gm/dL Hct (39.0-53.0) % RDW (11.5-15.5) % Plt Count (150-450) k/uL Lymphocytes # (Manual) (1.0-4.8) k/uL Myelocytes # (Manual) (0) k/uL ABG pO2 (83-108) mmHg ABG Total CO2 (19-24) mmol/L ABG O2 Saturation (94-97) % Creatinine (0.66-1.25) mg/dL Glucose (74-99) mg/dL POC Glucose (mg/dL) 71 L 105 H 71 L (75-99) mg/dL Calcium (8.4-10.2) mg/dL Total Bilirubin (0.2-1.3) mg/dL AST (17-59) U/L ALT (21-72) U/L Total Protein (6.3-8.2) g/dL Albumin (3.5-5.0) g/dL 08/01/17 08/01/17 08/01/17 Range/Units 04:17 04:56 05:01 WBC 3.4 L (3.8-10.6) k/uL RBC 2.78 L (4.30-5.90) m/uL Hgb 7.8 L (13.0-17.5) gm/dL Hct 25.0 L (39.0-53.0) % RDW 20.7 H (11.5-15.5) % Plt Count 130 L (150-450) k/uL Lymphocytes # (Manual) 0.99 L (1.0-4.8) k/uL Myelocytes # (Manual) 0.03 H (0) k/uL ABG pO2 (83-108) mmHg ABG Total CO2 (19-24) mmol/L ABG O2 Saturation (94-97) % Creatinine (0.66-1.25) mg/dL Glucose (74-99) mg/dL POC Glucose (mg/dL) 43 L 181 H (75-99) mg/dL Calcium (8.4-10.2) mg/dL Total Bilirubin (0.2-1.3) mg/dL AST (17-59) U/L ALT (21-72) U/L Total Protein (6.3-8.2) g/dL Albumin (3.5-5.0) g/dL 08/01/17 08/01/17 08/01/17 Range/Units 05:01 07:20 08:33 WBC (3.8-10.6) k/uL RBC (4.30-5.90) m/uL Hgb (13.0-17.5) gm/dL Hct (39.0-53.0) % RDW (11.5-15.5) % Plt Count (150-450) k/uL Lymphocytes # (Manual) (1.0-4.8) k/uL Myelocytes # (Manual) (0) k/uL ABG pO2 134 H (83-108) mmHg ABG Total CO2 25 H (19-24) mmol/L ABG O2 Saturation 99.5 H (94-97) % Creatinine 0.60 L (0.66-1.25) mg/dL Glucose 203 H (74-99) mg/dL POC Glucose (mg/dL) 119 H (75-99) mg/dL Calcium 8.1 L (8.4-10.2) mg/dL Total Bilirubin 0.1 L (0.2-1.3) mg/dL AST 14 L (17-59) U/L ALT 15 L (21-72) U/L Total Protein 4.5 L (6.3-8.2) g/dL Albumin 2.2 L (3.5-5.0) g/dL 08/01/17 Range/Units 10:30 WBC (3.8-10.6) k/uL RBC (4.30-5.90) m/uL Hgb (13.0-17.5) gm/dL Hct (39.0-53.0) % RDW (11.5-15.5) % Plt Count (150-450) k/uL Lymphocytes # (Manual) (1.0-4.8) k/uL Myelocytes # (Manual) (0) k/uL ABG pO2 (83-108) mmHg ABG Total CO2 (19-24) mmol/L ABG O2 Saturation (94-97) % Creatinine (0.66-1.25) mg/dL Glucose (74-99) mg/dL POC Glucose (mg/dL) 104 H (75-99) mg/dL Calcium (8.4-10.2) mg/dL Total Bilirubin (0.2-1.3) mg/dL AST (17-59) U/L ALT (21-72) U/L Total Protein (6.3-8.2) g/dL Albumin (3.5-5.0) g/dL Microbiology - Last 24 Hours (Table) 07/29/17 23:48 Gram Stain - Final Sputum Sputum Culture - Final 07/29/17 21:00 Blood Culture - Preliminary Blood No Growth after 48 hours 07/29/17 20:47 Blood Culture - Preliminary Blood No Growth after 48 hours 07/29/17 21:00 Urine Culture - Final Urine,Catheterized Assessment and Plan Assessment: Assessment Hypoxemic respiratory failure secondary to alcohol withdrawal syndrome and delirium tremens, copy to by possible aspiration, status post intubation with mechanical ventilation on July 30. History of acute alcohol withdrawal syndrome Acute GI bleed status post 1 unit of PRBC' s Hypoglycemia Aspiration pneumonia History of seizure disorder History of hypertension History of bipolar disorder Plan: Plan dated 08/01/2017 The patient's vent settings were changed to PSV of 10 and CPAP of 5. We'll keep the patient on those settings for a while. Were not sure yet about extubation. He may not be ready for that yet. Continue to follow closely. We' ll start the patient on some tube feeds. Additional recommendations and suggestions are forthcoming. Prognosis is guarded. Labs x-rays a medications are reviewed. Critical care time 34 minutes Time with Patient: Greater than 30
[2017-08-01 12:17] LABS: Glucose,Whole Blood 62 mg/dL (75-99)
[2017-08-01 12:29] LABS: Glucose,Whole Blood 90 mg/dL (75-99)
[2017-08-01] MEDS: levETIRAcetam IV 500 MG in SODIUM CHLORIDE 0.9% 100 ML IVPB SCH ×2 (12:36→22:46)
[2017-08-01] MEDS: THIAMINE 100 MG TAB PO SCH (12:49)
[2017-08-01 13:18] LABS: Appearance,Urine Clear (Clear); Bilirubin,Urine Negative (Negative); Blood,Urine Negative (Negative); Color,Urine Yellow; Glucose,Urine (UA) Negative (Negative); Ketones,Urine Negative (Negative); Leukocyte Esterase,Urine Negative (Negative); Nitrite,Urine Negative (Negative); Protein,Urine Negative (Negative)
[2017-08-01 15:03] LABS: Glucose,Whole Blood 100 mg/dL (75-99)
[2017-08-01 17:54] LABS: Anisocytosis Moderate; HCT 24.8 % (39.0-53.0); HGB 7.5 gm/dL (13.0-17.5); Hypochromasia Marked; MCH 27.1 pg (25.0-35.0); MCHC 30.1 g/dL (31.0-37.0); Macrocytosis Slight; Mean Platelet Volume 8.1; Platelet Count 169 k/uL (150-450); RBC 2.75 m/uL (4.30-5.90); RDW 21.1 % (11.5-15.5); WBC 3.8 k/uL (3.8-10.6)
[2017-08-01 20:24] LABS: Glucose,Whole Blood 96 mg/dL (75-99)
[2017-08-01] MEDS: LORazepam 2 MG/ML INJ IV PRN (21:13)
[2017-08-02] MEDS: LORazepam 2 MG/ML INJ IV PRN ×2 (00:37→03:13)
[2017-08-02 00:46] LABS: Glucose,Whole Blood 78 mg/dL (75-99)
[2017-08-02] MEDS: CLINDAMYCIN 600 MG in DEXTROSE 5% IN WATER 50 ML IVPB SCH ×6 (00:47→17:04)
[2017-08-02 04:17] LABS: Glucose,Whole Blood 78 mg/dL (75-99)
[2017-08-02 04:29] LABS: Anisocytosis Moderate; HGB 7.5 gm/dL (13.0-17.5); Hypochromasia Marked; MCH 27.3 pg (25.0-35.0); MCV 91.2 fL (80.0-100.0); Macrocytosis Slight; Mean Platelet Volume 7.7; Platelet Count 181 k/uL (150-450); Poikilocytosis Slight; RBC 2.74 m/uL (4.30-5.90); RDW 20.7 % (11.5-15.5); WBC 3.5 k/uL (3.8-10.6)
[2017-08-02 04:37] LABS: Amylase 64 U/L (30-110); Anion Gap 8 mmol/L; Blood Urea Nitrogen 8 mg/dL (9-20); Calcium 8.7 mg/dL (8.4-10.2); Carbon Dioxide 27 mmol/L (22-30); Chloride 108 mmol/L (98-107); Glucose 83 mg/dL (74-99); Lipase 74 U/L (23-300); Magnesium 1.8 mg/dL (1.6-2.3); Potassium 4.5 mmol/L (3.5-5.1); Sodium 143 mmol/L (137-145)
[2017-08-02] MEDS ORDERED: Magnesium Replacement Protocol 1 EACH MISC MISCELLANE PRN (04:42)
[2017-08-02] MEDS: DEXTROSE 10% IN WATER 500 ML in EMPTY BAG 1 BAG IV SCH (05:51)
[2017-08-02 05:52] LABS: Eosinophils # (M) 0.14 k/uL (0-0.7); Lymphocytes # (M) 1.47 k/uL (1.0-4.8); Neutrophils # (M) 1.19 k/uL (1.3-7.7); Neutrophils % (M) 34 %; Nucleated Red Blood Cells 0 /100 WBC (0-0); Target Cells Present; Total Cells Counted 100
[2017-08-02] MEDS: MAGNESIUM SULFATE-D5W PMX 1 GM in DEXTROSE/WATER 1 100ML.BAG IVPB SCH ×2 (05:52→06:55)
--- NOTE | 2017-08-02 06:40 | P.PN ---
Progress Note - Text Progress Note Date: 08/01/17 (delayed charting seen on 08/01 at 2015) Hospitalist Interval Note Called to see patient regarding visual changes. Per nursing may retry may get patient to find blood consent form, he was unable to lie to sign-on. He has also been getting more confused overnight. Patient seen and examined at bedside. He complains of a headache, feels slightly tremulous and anxious. Denies chest pain shortness of breath, nausea, or vomiting. He is able to tell me that he is at [facility] but thinks that this 2017. He is able to read the sentence "the cat took a walk". Vital signs reviewed General: Ill appearing, mild distress, appears at stated age Derm: warm, dry Head: atraumatic, normocephalic, symmetric Eyes: EOMI, no lid lag, anicteric sclera, pupils equal round reactive to light Mouth: no lip lesion, mucus membranes moist Cardiovascular: S1S2 tachycardia, no murmur Lungs: Decreased breath sounds bilaterally with rhonchi , no accessory muscle use Neuro: CN II-XI grossly intact, light touch intact all 4 extremities and bilateral face, muscle strength 4 out of 5 in bilateral upper extremities, finger to nose is poor on the left, able to read that the sentence, muscle strength is 4 out of 5 in his bilateral lower extremities, patient keeps eyes closed during tasks. Psych: Alert, oriented, anxious and fidgety Assessment/Plan: Metabolic encephalopathy -Suspect still secondary to alcohol withdrawal -Asked nursing to administer Ativan -Do not see any focal neuro deficits to indicate need for further evaluation with CT at this time -Continue neuro checks Hypoglycemia -Last event was about 8 hours prior to being called -Continues to be on D10 drip -Check C-peptide, and pro insulin - likely related to sepsis
[2017-08-02] MEDS: IPRATROPIUM-ALBUTEROL 3 ML NEB INHALATION SCH ×3 (07:41→20:44)
--- NOTE | 2017-08-02 08:08 | XR ---
EXAMINATION TYPE: XR chest 1V portable DATE OF EXAM: 08/02/2017 CLINICAL HISTORY: Difficulty breathing progress study. TECHNIQUE: Single AP portable upright view of the chest is obtained. COMPARISON: Chest x-ray from one day earlier and older studies. FINDINGS: There is interval extubation with removal of endotracheal and orogastric tubes. There is s table left subclavian central venous catheter. There is persistent cardiomegaly. There is improving right medial basilar opacity. Left lung remains clear. No large pleural effusion or pneumothorax is seen. Osseous structures are intact. IMPRESSION: Interval extubation. Improving right medial basilar infiltrate and/or atelectasis. No new infiltrate is seen.
[2017-08-02 08:28] LABS: Glucose,Whole Blood 100 mg/dL (75-99)
[2017-08-02] MEDS: CHLORHEXIDINE GLUCONATE 15 ML CUP MUCOUS MEM SCH (08:51)
[2017-08-02] MEDS: guaiFENesin 600 MG TABLET.ER PO SCH ×2 (08:51→20:58)
[2017-08-02] MEDS: MAGNESIUM OXIDE 400 MG TAB PO SCH ×2 (08:51→20:59)
[2017-08-02] MEDS: PROPRANOLOL 20 MG TAB PO SCH ×2 (08:52→21:00)
[2017-08-02] MEDS: CALCIUM CARB-VIT D 500MG-200UN 1 EACH TAB PO SCH ×3 (08:52→21:00)
[2017-08-02] MEDS: VALPROIC ACID ORAL SOLN 250 MG/5 ML CUP PO SCH ×2 (08:52→21:16)
[2017-08-02] MEDS: PANTOPRAZOLE 40 MG/10 ML VIAL IVP SCH ×2 (08:52→21:15)
[2017-08-02] MEDS: levETIRAcetam IV 500 MG in SODIUM CHLORIDE 0.9% 100 ML IVPB SCH ×2 (08:54→21:15)
[2017-08-02] MEDS: cefTRIAXone IN SWFI 1,000 MG/10 ML SYRINGE IVP SCH (08:54)
--- NOTE | 2017-08-02 09:50 | P.PN ---
Subjective Progress Note Date: 08/02/17 Principal diagnosis: Hypoxemic respiratory failure Progress note dated 08/01/2017 This is a 47-year-old male with acute hypoxemic respiratory failure secondary to alcohol withdrawal syndrome. He also developed delirium tremens and trouble aspiration pneumonia. Admitted back on July 26 GI bleed and ended up being intubated on July 30 because of low blood oxygen level to alcohol withdrawal. Anyway, the patient's currently on the ventilator here in the ICU. We did do a spontaneous breathing trial on him. After daily eruption of sedation, weaning parameters included respiratory rate of 26 a tidal volume of 420 minute volume of 11.3 L/m negative inspiratory force of -17 and vital capacity 1.1 the patient had a rapid shallow breathing index of 59 and a positive cuff leak. The vent settings included the assist control mode rate of 20 tidal volume of 350 FiO2 of 35% to be dropped to 25% and a PEEP of 5. Arterial blood gases showed a PaO2 of 134 a PaCO2 of 37 and a pH of 7.41. The patient's IV included D10 at 50 mL an hour and propofol at 40 mics per kilogram per minute. The patient is awake and alert but looks a bit sleepy or lethargic. Chest x-ray does show some bibasilar atelectasis and/or infiltrate. Progress note dated 08/02/2017 47-year-old male with a history of acute hypoxemic respiratory failure, secondary to alcohol withdrawal syndrome. He was extubated yesterday. Unfortunately, he also developed delirium tremens and he also developed right lower lobe aspiration pneumonia. He was admitted back on July 26 of the GI bleed and he was intubated initially on July 30. At that time he was intubated because of hypoxemic respiratory failure secondary to alcohol withdrawal. Again yesterday he was extubated seemed be doing relatively well although is a bit lethargic and somnolent. He probably could move out to the floor today if stable. He is on O2 at 3 L. He is on a D10 IV at 50 mL an hour. Her changes IV to D5 0.9 at 50 mL an hour. We will start him on feeds. In addition, we may transfer him to the general medical floor. We'll see how she looks. Labs x-rays a medications are reviewed. Chest x-ray shows improving pattern of infiltrate right lower lobe, probably related to aspiration. Objective - Vital Signs Vital signs: Vital Signs Temp 98.0 F 08/02/17 08:00 Pulse 84 08/02/17 09:00 Resp 34 H 08/02/17 09:00 BP 120/60 08/02/17 09:00 Pulse Ox 99 08/02/17 09:00 Intake & Output 08/01/17 08/02/17 08/02/17 18:59 06:59 18:59 Intake Total 1980.25 800 450 Output Total 1355 785 625 Balance 625.25 15 -175 Weight 66.2 kg 64.6 kg Intake: IV 1600 800 250 Clindamycin 600 mg In 50 Dextrose 5% in Water 50 ml @ 100 mls/hr IVPB Q8HR [facility] Rx#:[id number] Dextrose 10% in Water 500 450 600 150 ml In Empty Bag 1 bag @ 50 mls/hr IV .Q10H [facility] Rx #:[id number] Magnesium Sulfate-D5w Pmx 100 100 1 gm In Dextrose/Water 1 100ml.bag @ 100 mls/hr IVPB Q1H [facility] Rx#: [id number] Sodium Chloride 0.9% 1, 1000 000 ml @ 999 mls/hr IV . Q1H1M [facility] Rx#:[id number] levETIRAcetam IV 500 mg 100 100 In Sodium Chloride 0.9% 100 ml @ 400 mls/hr IVPB Q12HR [facility] Rx#:[id number] Intake, IV Titration 380.25 Amount Clindamycin 600 mg In 100 Dextrose 5% in Water 50 ml @ 100 mls/hr IVPB Q8HR [facility] Rx#:[id number] Dextrose 10% in Water 500 50 ml In Empty Bag 1 bag @ 50 mls/hr IV .Q10H [facility] Rx #:[id number] Magnesium Sulfate-D5w Pmx 200 1 gm In Dextrose/Water 1 100ml.bag @ 100 mls/hr IVPB Q1H [facility] Rx#: [id number] Propofol 1,000 mg In 30.25 Empty Bag 1 bag @ Titrate IV .Q0M [facility] Rx#: [id number] Oral 200 Output: Urine 1355 785 625 Other: Voiding Method Indwelling Catheter Indwelling Catheter Indwelling Catheter ABP, PAP, CO, CI - Last Documented Arterial Blood Pressure 78/69 - Exam No acute distress, somnolent, on nasal O2 at 3 L/m .HEENT examination is grossly unremarkable. Mucous membranes are moist. . Neck supple. Full range of motion. No adenopathy thyromegaly or neck vein distention. Cardiovascular examination reveals regular rhythm rate. S1-S2 normal. No S3 or S4. No discernible murmur noted. Lungs reveal diminished breath sounds. There are a few scattered rhonchi. No wheezes or crackles. Breath sounds are diminished throughout. Abdomen soft bowel sounds are heard. No masses or tenderness. Extremities are intact. No cyanosis clubbing or edema. Skin is without rash or lesion. Neurologic examination difficult to evaluate because of the patient's lethargy and sleepiness, but he does move all 4 extremities - Labs CBC & Chem 7: 08/02/17 03:22 08/02/17 03:22 Labs: Abnormal Lab Results - Last 24 Hours (Table) 08/01/17 08/01/17 08/01/17 Range/Units 10:30 12:14 15:02 WBC (3.8-10.6) k/uL RBC (4.30-5.90) m/uL Hgb (13.0-17.5) gm/dL Hct (39.0-53.0) % MCHC (31.0-37.0) g/dL RDW (11.5-15.5) % Neutrophils # (Manual) (1.3-7.7) k/uL Chloride (98-107) mmol/L BUN (9-20) mg/dL POC Glucose (mg/dL) 104 H 62 L 100 H (75-99) mg/dL Crossmatch 08/01/17 08/01/17 08/02/17 Range/Units 15:45 17:46 03:22 WBC 3.5 L (3.8-10.6) k/uL RBC 2.75 L 2.74 L (4.30-5.90) m/uL Hgb 7.5 L 7.5 L (13.0-17.5) gm/dL Hct 24.8 L 25.0 L (39.0-53.0) % MCHC 30.1 L 30.0 L (31.0-37.0) g/dL RDW 21.1 H 20.7 H (11.5-15.5) % Neutrophils # (Manual) 1.19 L (1.3-7.7) k/uL Chloride (98-107) mmol/L BUN (9-20) mg/dL POC Glucose (mg/dL) (75-99) mg/dL Crossmatch See Detail 08/02/17 08/02/17 Range/Units 03:22 08:27 WBC (3.8-10.6) k/uL RBC (4.30-5.90) m/uL Hgb (13.0-17.5) gm/dL Hct (39.0-53.0) % MCHC (31.0-37.0) g/dL RDW (11.5-15.5) % Neutrophils # (Manual) (1.3-7.7) k/uL Chloride 108 H (98-107) mmol/L BUN 8 L (9-20) mg/dL POC Glucose (mg/dL) 100 H (75-99) mg/dL Crossmatch Microbiology - Last 24 Hours (Table) 07/29/17 21:00 Blood Culture - Preliminary Blood No Growth after 72 hours 07/29/17 20:47 Blood Culture - Preliminary Blood No Growth after 72 hours 07/29/17 23:48 Gram Stain - Final Sputum Sputum Culture - Final Assessment and Plan Assessment: Assessment Hypoxemic respiratory failure secondary to alcohol withdrawal syndrome and delirium tremens, copy to by possible aspiration, status post intubation with mechanical ventilation on July 30. Status post extubation on 08/01/2017 History of acute alcohol withdrawal syndrome Acute GI bleed status post 1 unit of PRBC' s Hypoglycemia Aspiration pneumonia History of seizure disorder History of hypertension History of bipolar disorder Plan: Plan dated 08/01/2017 The patient's vent settings were changed to PSV of 10 and CPAP of 5. We'll keep the patient on those settings for a while. Were not sure yet about extubation. He may not be ready for that yet. Continue to follow closely. We' ll start the patient on some tube feeds. Additional recommendations and suggestions are forthcoming. Prognosis is guarded. Labs x-rays a medications are reviewed. Critical care time 34 minutes Plan dated 08/02/2016 The patient seemed be doing relatively well post extubation. The patient probably can be transferred out to the general medical floor. The patient will be started on oral nutrition. The patient's IVs changed from D10 at 50 mL now her to D5.9 at 50 mL an hour. Additional recommendations and suggestions are forthcoming. Labs x-rays a medications are all reviewed. X-ray shows improving pattern of the right lower lobe infiltrate. Time with Patient: Greater than 30
[2017-08-02 11:32] LABS: Glucose,Whole Blood 95 mg/dL (75-99)
[2017-08-02] MEDS: THIAMINE 100 MG TAB PO SCH (13:23)
--- NOTE | 2017-08-02 13:54 | P.PN ---
Subjective Progress Note Date: 08/02/17 Principal diagnosis: The patient is a 47-year-old male that was transferred here from [facility] with concerns for GI bleed after presented with reports of coffee-ground emesis and black colored stools on presentation his hemoglobin was 7.8 and got as low as 6.9, review of records indicated he had a EGD and July 30 that showed severe reflux esophagitis with multiple erosions and distal esophageal stricture consistent with a grade 4 esophagitis and antral gastritis. The patient reports a history of seizure disorder and liver cirrhosis, and also has chronic thrombocytopenia due to his alcoholism. Patient noted to have acute metabolic encephalopathy secondary to alcohol withdrawal and multiple electrolyte abnormalities as well as hypo-glycemia, the patient was transferred to the ICU and subsequently intubated secondary to acute hypoxic respiratory failure due to aspiration pneumonia and ongoing alcohol withdrawal , he was started several amps of D50 and started on D10. OG was placed the patient was started on high protein tube feeds Patient extubated yesterday, and transferred to the floor. Overnight apparently the patient had episodes of confusion, this is been intermittent secondary to his alcohol withdrawal and DTs with ongoing metabolic encephalopathy related to intermittent hypoglycemia. Patient is arousable this morning, and actually reports having an appetite Objective - Vital Signs Vital signs: Vital Signs Temp 97.8 F 08/02/17 11:00 Pulse 78 08/02/17 11:00 Resp 18 08/02/17 11:00 BP 124/74 08/02/17 11:00 Pulse Ox 100 08/02/17 11:00 Intake & Output 08/01/17 08/02/17 08/02/17 18:59 06:59 18:59 Intake Total 1980.25 800 450 Output Total 1355 785 625 Balance 625.25 15 -175 Weight 66.2 kg 64.6 kg 64.6 kg Intake: IV 1600 800 250 Clindamycin 600 mg In 50 Dextrose 5% in Water 50 ml @ 100 mls/hr IVPB Q8HR [facility] Rx#:[id number] Dextrose 10% in Water 500 450 600 150 ml In Empty Bag 1 bag @ 50 mls/hr IV .Q10H [facility] Rx #:[id number] Magnesium Sulfate-D5w Pmx 100 100 1 gm In Dextrose/Water 1 100ml.bag @ 100 mls/hr IVPB Q1H [facility] Rx#: [id number] Sodium Chloride 0.9% 1, 1000 000 ml @ 999 mls/hr IV . Q1H1M [facility] Rx#:[id number] levETIRAcetam IV 500 mg 100 100 In Sodium Chloride 0.9% 100 ml @ 400 mls/hr IVPB Q12HR [facility] Rx#:[id number] Intake, IV Titration 380.25 Amount Clindamycin 600 mg In 100 Dextrose 5% in Water 50 ml @ 100 mls/hr IVPB Q8HR [facility] Rx#:[id number] Dextrose 10% in Water 500 50 ml In Empty Bag 1 bag @ 50 mls/hr IV .Q10H [facility] Rx #:[id number] Magnesium Sulfate-D5w Pmx 200 1 gm In Dextrose/Water 1 100ml.bag @ 100 mls/hr IVPB Q1H [facility] Rx#: [id number] Propofol 1,000 mg In 30.25 Empty Bag 1 bag @ Titrate IV .Q0M [facility] Rx#: [id number] Oral 200 Output: Urine 1355 785 625 Other: Voiding Method Indwelling Catheter Indwelling Catheter Indwelling Catheter ABP, PAP, CO, CI - Last Documented Arterial Blood Pressure 78/69 - Exam Constitutional: No acute distress, conversant, pleasant Eyes: Anicteric sclerae, moist conjunctiva, no lid-lag, PERRLA ENMT: NC/AT,Oropharynx clear, no erythema, exudates Neck:Supple, FROM, no masses, or JVD, No carotid bruits; No thyromegaly Lungs: Equal air entry with scattered rhonchi in the posterior bases more so on the left, Clear to percussion, Normal respiratory effort, no accessory muscle use Cardiovascular: Heart regular in rate and rhythm, No murmurs, gallops, or rubs no peripheral edema Abdominal: Soft Nontender, nom distended, no guarding, no rebound or rigidity, Normoactive bowel sounds No hepatomegaly, No splenomegaly, No palpable mass No abdominal wall hernia noted Skin: Normal temperature, tone, texture, turgor, No induration No subcutaneous nodules, No rash, lesions, No ulcers Extremities:No digital cyanosis No clubbing, Pedal pulses intact and symmetrical Radial pulses intact and symmetrical Normal gait and station, No calf tenderness Psychiatric: Oriented only to self pretty confused, Appropriate affect Intact judgement Neuro: Muscles Strength 5/5 in all 4 extremities, Sensation to light touch grossly present throughout, Cranial nerves II-XII grossly intact. No focal sensory deficits - Labs CBC & Chem 7: 08/02/17 03:22 08/02/17 03:22 Labs: Abnormal Lab Results - Last 24 Hours (Table) 08/01/17 08/01/17 08/01/17 Range/Units 15:02 15:45 17:46 WBC (3.8-10.6) k/uL RBC 2.75 L (4.30-5.90) m/uL Hgb 7.5 L (13.0-17.5) gm/dL Hct 24.8 L (39.0-53.0) % MCHC 30.1 L (31.0-37.0) g/dL RDW 21.1 H (11.5-15.5) % Neutrophils # (Manual) (1.3-7.7) k/uL Chloride (98-107) mmol/L BUN (9-20) mg/dL POC Glucose (mg/dL) 100 H (75-99) mg/dL Crossmatch See Detail 08/02/17 08/02/17 08/02/17 Range/Units 03:22 03:22 08:27 WBC 3.5 L (3.8-10.6) k/uL RBC 2.74 L (4.30-5.90) m/uL Hgb 7.5 L (13.0-17.5) gm/dL Hct 25.0 L (39.0-53.0) % MCHC 30.0 L (31.0-37.0) g/dL RDW 20.7 H (11.5-15.5) % Neutrophils # (Manual) 1.19 L (1.3-7.7) k/uL Chloride 108 H (98-107) mmol/L BUN 8 L (9-20) mg/dL POC Glucose (mg/dL) 100 H (75-99) mg/dL Crossmatch Microbiology - Last 24 Hours (Table) 07/29/17 21:00 Blood Culture - Preliminary Blood No Growth after 72 hours 07/29/17 20:47 Blood Culture - Preliminary Blood No Growth after 72 hours Assessment and Plan (1) Acute respiratory failure with hypoxia Narrative/Plan: * Secondary to aspiration pneumonia concern for aspiration in the setting of severe alcohol withdrawal and delirium tremens * Pulmonary following appreciate recommendations, chest x-ray this morning showing bibasilar airspace disease left greater than right * Continue with supplemental oxygen, patient extubated yesterday Current Visit: Yes Status: Resolved Code(s): J96.01 - ACUTE RESPIRATORY FAILURE WITH HYPOXIA SNOMED Code(s): 92040205 (2) Pneumonia Narrative/Plan: * Concern for sepsis and aspiration pneumonia, sputum cultures indicating moderate of gram-positive cocci * Chest x-ray revealing bibasilar infiltrates left greater than right * continue patient on IV clindamycin day #3 will continue Rocephin Current Visit: Yes Status: Acute Code(s): J18.9 - PNEUMONIA, UNSPECIFIED ORGANISM SNOMED Code(s): 318823720 (3) Metabolic encephalopathy Narrative/Plan: * CT of the head showing no acute intracranial abnormality * Confusion likely secondary to alcohol withdrawal superimposed on multiple electrolyte abnormalities/intermittent hypoglycemia * Continue with Ativan when necessary with symptom triggered CIWA protocol Current Visit: Yes Status: Acute Code(s): G93.41 - METABOLIC ENCEPHALOPATHY SNOMED Code(s): 81293829 (4) Acute blood loss anemia Narrative/Plan: * Hemoglobin down to 7.4, will transfuse 1 u pRBC today this will be his second unit of blood * We'll continue to monitor, likely secondary to problem number #2 * EGD showing ulcers and erosions in the distal esophagus consistent with grade D reflux esophagitis, also status post balloon dilatation of distal esophageal stricture * Continue with PPI therapy, Current Visit: Yes Status: Acute Code(s): D62 - ACUTE POSTHEMORRHAGIC ANEMIA SNOMED Code(s): 466633341 (5) Upper GI bleed Current Visit: Yes Status: Acute Code(s): K92.2 - GASTROINTESTINAL HEMORRHAGE, UNSPECIFIED SNOMED Code(s): 02463458 (6) GERD with esophagitis Narrative/Plan: * Grade D esophagitis Current Visit: No Status: Chronic Code(s): K21.0 - GASTRO-ESOPHAGEAL REFLUX DISEASE WITH ESOPHAGITIS SNOMED Code(s): 982646863 (7) Hypocalcemia Narrative/Plan: * Replace and recheck in the morning Current Visit: Yes Status: Acute Priority: High Code(s): E83.51 - HYPOCALCEMIA SNOMED Code(s): 4015739 (8) Hypomagnesemia Narrative/Plan: * Replace with 4 g we'll recheck in the morning Current Visit: Yes Status: Acute Code(s): E83.42 - HYPOMAGNESEMIA SNOMED Code(s): 335088398 (9) Alcohol dependence Current Visit: No Status: Acute Code(s): F10.20 - ALCOHOL DEPENDENCE, UNCOMPLICATED SNOMED Code(s): 65364177 (10) Acute kidney injury Narrative/Plan: * Likely prerenal secondary to dehydration * Creatinine trending down from 2.4- back to normal * continue with clear liquids we'll initiate 1/2 normal saline 75 mL an hour Current Visit: Yes Status: Resolved Code(s): N17.9 - ACUTE KIDNEY FAILURE, UNSPECIFIED SNOMED Code(s): 23082748 (11) Hypoglycemia Narrative/Plan: * We'll have speech consult to see the patient prior to reinitiating diet, as patient previously aspirated * Continued D5 W at 50 mL an hour Current Visit: Yes Status: Acute Code(s): E16.2 - HYPOGLYCEMIA, UNSPECIFIED SNOMED Code(s): 595030664
[2017-08-02 16:28] LABS: Glucose,Whole Blood 83 mg/dL (75-99)
[2017-08-02] MEDS: DEXTROSE 5%-0.9% NACL 1,000 ML IV SCH (17:46)
[2017-08-02 20:44] LABS: Glucose,Whole Blood 71 mg/dL (75-99)
[2017-08-02] MEDS ORDERED: GLUCAGON 1 MG/ML VIAL IVP STA (21:07)
[2017-08-02] MEDS ORDERED: DEXTROSE 50%-WATER 50 ML SYRINGE IVP ONE (21:11)
[2017-08-02] MEDS: ONDANSETRON 4 MG/2 ML VIAL IVP PRN (21:15)
[2017-08-03 00:04] LABS: Glucose,Whole Blood 67 mg/dL (75-99)
[2017-08-03] MEDS ORDERED: DEXTROSE 50%-WATER 50 ML SYRINGE IVP ONE ×2 (00:11→07:30)
[2017-08-03] MEDS ORDERED: DEXTROSE 5% IN WATER 1,000 ML IV ONE (00:14)
[2017-08-03] MEDS: CLINDAMYCIN 600 MG in DEXTROSE 5% IN WATER 50 ML IVPB SCH ×8 (00:27→21:12)
[2017-08-03 00:43] LABS: Glucose,Whole Blood 137 mg/dL (75-99)
[2017-08-03 01:59] LABS: Glucose,Whole Blood 74 mg/dL (75-99)
[2017-08-03 02:53] LABS: Glucose,Whole Blood 77 mg/dL (75-99)
[2017-08-03 04:02] LABS: Glucose,Whole Blood 85 mg/dL (75-99)
[2017-08-03] MEDS: DEXTROSE 5%-0.9% NACL 1,000 ML IV SCH (06:03)
[2017-08-03] MEDS: IPRATROPIUM-ALBUTEROL 3 ML NEB INHALATION SCH ×3 (07:02→20:45)
[2017-08-03 07:36] LABS: Glucose,Whole Blood 65 mg/dL (75-99)
[2017-08-03 07:52] LABS: Glucose,Whole Blood 147 mg/dL (75-99)
[2017-08-03] MEDS: CALCIUM CARB-VIT D 500MG-200UN 1 EACH TAB PO SCH ×3 (07:57→20:14)
[2017-08-03] MEDS: MAGNESIUM OXIDE 400 MG TAB PO SCH ×2 (07:58→20:14)
[2017-08-03] MEDS: PROPRANOLOL 20 MG TAB PO SCH ×2 (07:58→20:13)
[2017-08-03] MEDS: THIAMINE 100 MG TAB PO SCH (07:58)
[2017-08-03] MEDS: VALPROIC ACID ORAL SOLN 250 MG/5 ML CUP PO SCH ×2 (07:58→20:13)
[2017-08-03] MEDS: guaiFENesin 600 MG TABLET.ER PO SCH ×2 (07:58→20:13)
[2017-08-03 10:00] LABS: Anisocytosis Slight; Hypochromasia Marked; Poikilocytosis Moderate
[2017-08-03 10:06] LABS: Basophils % (A) 0 %; Eosinophils # (A) 0.1 k/uL (0-0.7); Eosinophils % (A) 2 %; HCT 30.5 % (39.0-53.0); Lymphocytes # (A) 1.3 k/uL (1.0-4.8); Lymphocytes % (A) 30 %; MCHC 30.7 g/dL (31.0-37.0); Monocytes # (A) 0.6 k/uL (0-1.0); Monocytes % (A) 15 %; Neutrophils # (A) 2.1 k/uL (1.3-7.7); Neutrophils % (A) 49 %; Platelet Count 206 k/uL (150-450); RBC 3.46 m/uL (4.30-5.90); RDW 19.5 % (11.5-15.5); WBC 4.4 k/uL (3.8-10.6)
[2017-08-03 10:14] LABS: HGB 9.3 gm/dL (13.0-17.5)
[2017-08-03 10:20] LABS: Anion Gap 8 mmol/L; Blood Urea Nitrogen 5 mg/dL (9-20); Calcium 8.5 mg/dL (8.4-10.2); Carbon Dioxide 26 mmol/L (22-30); Chloride 103 mmol/L (98-107); Glucose 191 mg/dL (74-99); Magnesium 1.2 mg/dL (1.6-2.3); Phosphorus 4.2 mg/dL (2.5-4.5); Potassium 3.7 mmol/L (3.5-5.1); Sodium 137 mmol/L (137-145)
[2017-08-03] MEDS: PANTOPRAZOLE 40 MG/10 ML VIAL IVP SCH ×2 (10:45→20:15)
[2017-08-03] MEDS: cefTRIAXone IN SWFI 1,000 MG/10 ML SYRINGE IVP SCH (10:45)
[2017-08-03] MEDS: levETIRAcetam IV 500 MG in SODIUM CHLORIDE 0.9% 100 ML IVPB SCH ×2 (10:45→20:09)
[2017-08-03 11:06] LABS: Hypochromasia (M) Present
[2017-08-03] MEDS ORDERED: Magnesium Replacement Protocol 1 EACH MISC MISCELLANE PRN (11:45)
[2017-08-03 11:51] LABS: Glucose,Whole Blood 82 mg/dL (75-99)
--- NOTE | 2017-08-03 12:47 | P.PN ---
Subjective Progress Note Date: 08/03/17 Principal diagnosis: The patient is a 47-year-old male that was transferred here from [facility] with concerns for GI bleed after presented with reports of coffee-ground emesis and black colored stools on presentation his hemoglobin was 7.8 and got as low as 6.9, review of records indicated he had a EGD and July 30 that showed severe reflux esophagitis with multiple erosions and distal esophageal stricture consistent with a grade 4 esophagitis and antral gastritis. The patient reports a history of seizure disorder and liver cirrhosis, and also has chronic thrombocytopenia due to his alcoholism. Patient noted to have acute metabolic encephalopathy secondary to alcohol withdrawal and multiple electrolyte abnormalities as well as hypo-glycemia, the patient was transferred to the ICU and subsequently intubated secondary to acute hypoxic respiratory failure due to aspiration pneumonia and ongoing alcohol withdrawal , he was started several amps of D50 and started on D10. OG was placed the patient was started on high protein tube feeds Patient appears more lucid and less confused today, reporting that he's feeling " rough" complain of some abdominal pain, patient reporting that he wants to eat appetite is returning. Yesterday patient recommended for barium swallow eval by speech therapy. Patient cleared to have his swallow study today Objective - Vital Signs Vital signs: Vital Signs Temp 97.1 F L 08/03/17 07:00 Pulse 120 H 08/03/17 07:14 Resp 16 08/03/17 07:00 BP 151/101 08/03/17 07:00 Pulse Ox 100 08/03/17 07:00 Intake & Output 08/02/17 08/03/17 08/03/17 18:59 06:59 18:59 Intake Total 450 310 Output Total 925 350 Balance -475 310 -350 Weight 64.6 kg 64.3 kg Intake: IV 250 Dextrose 10% in Water 500 150 ml In Empty Bag 1 bag @ 50 mls/hr IV .Q10H [facility] Rx #:[id number] Magnesium Sulfate-D5w Pmx 100 1 gm In Dextrose/Water 1 100ml.bag @ 100 mls/hr IVPB Q1H [facility] Rx#: [id number] Oral 200 Blood Product 0 310 Rc As-3 Unit 0 310 [id number] Output: Urine 925 350 Other: Voiding Method Indwelling Catheter Indwelling Catheter Urinal # Voids 3 1 # Bowel Movements 1 1 ABP, PAP, CO, CI - Last Documented Arterial Blood Pressure 78/69 - Exam Constitutional: No acute distress, conversant, pleasant Eyes: Anicteric sclerae, moist conjunctiva, no lid-lag, PERRLA ENMT: NC/AT,Oropharynx clear, no erythema, exudates Neck:Supple, FROM, no masses, or JVD, No carotid bruits; No thyromegaly Lungs: Equal air entry with scattered rhonchi in the posterior bases more so on the left, Clear to percussion, Normal respiratory effort, no accessory muscle use Cardiovascular: Heart regular in rate and rhythm, No murmurs, gallops, or rubs no peripheral edema Abdominal: Soft Nontender, nom distended, no guarding, no rebound or rigidity, Normoactive bowel sounds No hepatomegaly, No splenomegaly, No palpable mass No abdominal wall hernia noted Skin: Normal temperature, tone, texture, turgor, No induration No subcutaneous nodules, No rash, lesions, No ulcers Extremities:No digital cyanosis No clubbing, Pedal pulses intact and symmetrical Radial pulses intact and symmetrical Normal gait and station, No calf tenderness Psychiatric: Oriented only to self pretty confused, Appropriate affect Intact judgement Neuro: Muscles Strength 5/5 in all 4 extremities, Sensation to light touch grossly present throughout, Cranial nerves II-XII grossly intact. No focal sensory deficits - Labs CBC & Chem 7: 08/03/17 07:47 08/03/17 07:47 Labs: Abnormal Lab Results - Last 24 Hours (Table) 08/01/17 08/02/17 08/03/17 Range/Units 15:45 20:35 00:02 RBC (4.30-5.90) m/uL Hgb (13.0-17.5) gm/dL Hct (39.0-53.0) % MCHC (31.0-37.0) g/dL RDW (11.5-15.5) % BUN (9-20) mg/dL Glucose (74-99) mg/dL POC Glucose (mg/dL) 71 L 67 L (75-99) mg/dL Magnesium (1.6-2.3) mg/dL Crossmatch See Detail 08/03/17 08/03/17 08/03/17 Range/Units 00:41 01:56 07:22 RBC (4.30-5.90) m/uL Hgb (13.0-17.5) gm/dL Hct (39.0-53.0) % MCHC (31.0-37.0) g/dL RDW (11.5-15.5) % BUN (9-20) mg/dL Glucose (74-99) mg/dL POC Glucose (mg/dL) 137 H 74 L 65 L (75-99) mg/dL Magnesium (1.6-2.3) mg/dL Crossmatch 08/03/17 08/03/17 08/03/17 Range/Units 07:47 07:47 07:50 RBC 3.46 L (4.30-5.90) m/uL Hgb 9.3 L D (13.0-17.5) gm/dL Hct 30.5 L (39.0-53.0) % MCHC 30.7 L (31.0-37.0) g/dL RDW 19.5 H (11.5-15.5) % BUN 5 L (9-20) mg/dL Glucose 191 H (74-99) mg/dL POC Glucose (mg/dL) 147 H (75-99) mg/dL Magnesium 1.2 L (1.6-2.3) mg/dL Crossmatch Microbiology - Last 24 Hours (Table) 07/29/17 21:00 Blood Culture - Preliminary Blood No Growth after 96 hours 07/29/17 20:47 Blood Culture - Preliminary Blood No Growth after 96 hours Assessment and Plan (1) Metabolic encephalopathy Narrative/Plan: * CT of the head showing no acute intracranial abnormality * Confusion likely secondary to alcohol withdrawal superimposed on multiple electrolyte abnormalities/intermittent hypoglycemia * Continue with Ativan when necessary with symptom triggered CIWA protocol Current Visit: Yes Status: Acute Code(s): G93.41 - METABOLIC ENCEPHALOPATHY SNOMED Code(s): 79810680 (2) Hypomagnesemia Narrative/Plan: * Continue with magnesium replacement protocol Current Visit: Yes Status: Acute Code(s): E83.42 - HYPOMAGNESEMIA SNOMED Code(s): 151390104 (3) Hypoglycemia Narrative/Plan: * Continued D5 W at 50 mL an hour * Received an amp of D50 last night * Continue monitor blood sugars * C-peptide and proinsulin ordered Current Visit: Yes Status: Acute Code(s): E16.2 - HYPOGLYCEMIA, UNSPECIFIED SNOMED Code(s): 417316422 (4) Pneumonia Narrative/Plan: * Concern for sepsis and aspiration pneumonia, sputum cultures indicating moderate of gram-positive cocci * Chest x-ray revealing bibasilar infiltrates left greater than right * continue patient on IV clindamycin day #3 will continue Rocephin Current Visit: Yes Status: Acute Code(s): J18.9 - PNEUMONIA, UNSPECIFIED ORGANISM SNOMED Code(s): 870805079 (5) Acute respiratory failure with hypoxia Narrative/Plan: * Secondary to aspiration pneumonia concern for aspiration in the setting of severe alcohol withdrawal and delirium tremens * Pulmonary following appreciate recommendations, chest x-ray this morning showing bibasilar airspace disease left greater than right * Continue with supplemental oxygen, patient extubated yesterday Current Visit: Yes Status: Resolved Code(s): J96.01 - ACUTE RESPIRATORY FAILURE WITH HYPOXIA SNOMED Code(s): 66525247 (6) Acute blood loss anemia Narrative/Plan: * Hemoglobin up to 9.4 after 2 units of packed RBCs * We'll continue to monitor, likely secondary to problem number #2 * EGD showing ulcers and erosions in the distal esophagus consistent with grade D reflux esophagitis, also status post balloon dilatation of distal esophageal stricture * Continue with PPI therapy, Current Visit: Yes Status: Acute Code(s): D62 - ACUTE POSTHEMORRHAGIC ANEMIA SNOMED Code(s): 972136012 (7) Alcohol withdrawal delirium Current Visit: Yes Status: Resolved Code(s): F10.231 - ALCOHOL DEPENDENCE WITH WITHDRAWAL DELIRIUM SNOMED Code(s): 2118489 (8) Upper GI bleed Current Visit: Yes Status: Acute Code(s): K92.2 - GASTROINTESTINAL HEMORRHAGE, UNSPECIFIED SNOMED Code(s): 78001841 (9) GERD with esophagitis Narrative/Plan: * Grade D esophagitis Current Visit: No Status: Chronic Code(s): K21.0 - GASTRO-ESOPHAGEAL REFLUX DISEASE WITH ESOPHAGITIS SNOMED Code(s): 039544197 (10) Hypocalcemia Narrative/Plan: * Replace and recheck in the morning Current Visit: Yes Status: Acute Priority: High Code(s): E83.51 - HYPOCALCEMIA SNOMED Code(s): 7522347 (11) Alcohol dependence Current Visit: No Status: Chronic Code(s): F10.20 - ALCOHOL DEPENDENCE, UNCOMPLICATED SNOMED Code(s): 96023791 (12) Acute kidney injury Narrative/Plan: * Likely prerenal secondary to dehydration * Creatinine trending down from 2.4- back to normal * continue with clear liquids we'll initiate 1/2 normal saline 75 mL an hour Current Visit: Yes Status: Resolved Code(s): N17.9 - ACUTE KIDNEY FAILURE, UNSPECIFIED SNOMED Code(s): 69829086
[2017-08-03] MEDS: MAGNESIUM SULFATE-D5W PMX 1 GM in DEXTROSE/WATER 1 100ML.BAG IVPB SCH ×3 (13:08→15:48)
--- NOTE | 2017-08-03 15:14 | FL ---
EXAMINATION TYPE: FL barium swallow w video DATE OF EXAM: 08/03/2017 MODIFIED SWALLOW / DEGLUTITION STUDY CLINICAL HISTORY: Dysphagia. Aspiration pneumonia. TECHNIQUE: Deglutition study is performed utilizing thin liquid barium, honey and nectar thick liqui d barium, barium thick applesauce, and barium coated cracker. A total of 2 minutes 1 seconds fluorosc opic time was utilized during procedure. Approximately 8 cine sequences were acquired. 0 images are s aved to PACS. COMPARISON: None. FINDINGS: The oral and pharyngeal phases show satisfactory initiation and propagation with all modali ties tested. Normal mastication is seen with solid modalities tested. There is no evidence of penet ration or aspiration with any modality tested. No significant pharyngeal residue was appreciated. IMPRESSION: Normal deglutition study. Please refer to speech therapist notes for further details if necessary.
[2017-08-03 16:04] LABS: Glucose,Whole Blood 89 mg/dL (75-99)
--- NOTE | 2017-08-03 16:22 | P.PN ---
Subjective Progress Note Date: 08/03/17 Principal diagnosis: Hypoxemic respiratory failure, secondary to alcohol withdrawal syndrome, and right lower lobe aspiration pneumonia Progress note dated 08/01/2017 This is a 47-year-old male with acute hypoxemic respiratory failure secondary to alcohol withdrawal syndrome. He also developed delirium tremens and trouble aspiration pneumonia. Admitted back on July 26 GI bleed and ended up being intubated on July 30 because of low blood oxygen level to alcohol withdrawal. Anyway, the patient's currently on the ventilator here in the ICU. We did do a spontaneous breathing trial on him. After daily eruption of sedation, weaning parameters included respiratory rate of 26 a tidal volume of 420 minute volume of 11.3 L/m negative inspiratory force of -17 and vital capacity 1.1 the patient had a rapid shallow breathing index of 59 and a positive cuff leak. The vent settings included the assist control mode rate of 20 tidal volume of 350 FiO2 of 35% to be dropped to 25% and a PEEP of 5. Arterial blood gases showed a PaO2 of 134 a PaCO2 of 37 and a pH of 7.41. The patient's IV included D10 at 50 mL an hour and propofol at 40 mics per kilogram per minute. The patient is awake and alert but looks a bit sleepy or lethargic. Chest x-ray does show some bibasilar atelectasis and/or infiltrate. Progress note dated 08/02/2017 47-year-old male with a history of acute hypoxemic respiratory failure, secondary to alcohol withdrawal syndrome. He was extubated yesterday. Unfortunately, he also developed delirium tremens and he also developed right lower lobe aspiration pneumonia. He was admitted back on July 26 of the GI bleed and he was intubated initially on July 30. At that time he was intubated because of hypoxemic respiratory failure secondary to alcohol withdrawal. Again yesterday he was extubated seemed be doing relatively well although is a bit lethargic and somnolent. He probably could move out to the floor today if stable. He is on O2 at 3 L. He is on a D10 IV at 50 mL an hour. Her changes IV to D5 0.9 at 50 mL an hour. We will start him on feeds. In addition, we may transfer him to the general medical floor. We'll see how she looks. Labs x-rays a medications are reviewed. Chest x-ray shows improving pattern of infiltrate right lower lobe, probably related to aspiration. On 08/03/2017 patient seen in follow-up on medical surgical floor. He is resting in bed, appears weak, in no acute distress. He has a loose congested nonproductive cough, he has been nothing by mouth for a modified barium swallow to rule out aspiration. He has been afebrile, hemodynamically stable, he is currently on room air, with a pulse ox of 94%. His lung sounds are positive for some scattered rhonchi, no wheezing. Today's labs show WBC of 4.4, hemoglobin of 9.3, electrolyte profile was within normal limits, BUN was 5, creatinine 0.68. Patient remains on Rocephin, clindamycin, nebulized treatments. Yesterday's chest x-ray was reviewed, and showed improving right medial basilar infiltrate. Continue with current plan of care, maintain aspiration precautions, continue current antibiotic coverage. Blood, urine and sputum cultures remain negative. Patient denies fever or chills. Objective - Vital Signs Vital signs: Vital Signs Temp 97.9 F 08/03/17 15:00 Pulse 73 08/03/17 15:00 Resp 16 08/03/17 15:00 BP 147/96 08/03/17 15:00 Pulse Ox 94 L 08/03/17 15:00 Intake & Output 08/02/17 08/03/17 08/03/17 18:59 06:59 18:59 Intake Total 450 310 Output Total 925 350 Balance -475 310 -350 Weight 64.6 kg 64.3 kg Intake: IV 250 Dextrose 10% in Water 500 150 ml In Empty Bag 1 bag @ 50 mls/hr IV .Q10H RADHA Rx #:[id number] Magnesium Sulfate-D5w Pmx 100 1 gm In Dextrose/Water 1 100ml.bag @ 100 mls/hr IVPB Q1H RADHA Rx#: [id number] Oral 200 Blood Product 0 310 Rc As-3 Unit 0 310 [id number] Output: Urine 925 350 Other: Voiding Method Indwelling Catheter Indwelling Catheter Urinal # Voids 3 3 # Bowel Movements 1 2 ABP, PAP, CO, CI - Last Documented Arterial Blood Pressure 78/69 - Exam GENERAL EXAM: Alert, 47-year-old white male, comfortable in no apparent distress. HEAD: Normocephalic/atraumatic. EYES: Normal reaction of pupils, equal size. Conjunctiva pink, sclera white. NOSE: Clear with pink turbinates. THROAT: No erythema or exudates. NECK: No masses, no JVD, no thyroid enlargement, no adenopathy. CHEST: No chest wall deformity. Symmetrical expansion. LUNGS: Equal air entry with scattered rhonchi, patient has a loose congested nonproductive cough CVS: Regular rate and rhythm, normal S1 and S2, no gallops, no murmurs, no rubs ABDOMEN: Soft, nontender. No hepatosplenomegaly, normal bowel sounds, no guarding or rigidity. EXTREMITIES: No clubbing, no edema, no cyanosis, 2+ pulses and upper and lower extremities. MUSCULOSKELETAL: Muscle strength and tone normal. SPINE: No scoliosis or deformity SKIN: No rashes CENTRAL NERVOUS SYSTEM: Alert and oriented -3. No focal deficits, tone is normal in all 4 extremities. PSYCHIATRIC: Alert and oriented -3. Appropriate affect. Intact judgment and insight. - Labs CBC & Chem 7: 08/03/17 07:47 08/03/17 07:47 Labs: Abnormal Lab Results - Last 24 Hours (Table) 08/01/17 08/02/17 08/03/17 Range/Units 15:45 20:35 00:02 RBC (4.30-5.90) m/uL Hgb (13.0-17.5) gm/dL Hct (39.0-53.0) % MCHC (31.0-37.0) g/dL RDW (11.5-15.5) % BUN (9-20) mg/dL Glucose (74-99) mg/dL POC Glucose (mg/dL) 71 L 67 L (75-99) mg/dL Magnesium (1.6-2.3) mg/dL Crossmatch See Detail 08/03/17 08/03/17 08/03/17 Range/Units 00:41 01:56 07:22 RBC (4.30-5.90) m/uL Hgb (13.0-17.5) gm/dL Hct (39.0-53.0) % MCHC (31.0-37.0) g/dL RDW (11.5-15.5) % BUN (9-20) mg/dL Glucose (74-99) mg/dL POC Glucose (mg/dL) 137 H 74 L 65 L (75-99) mg/dL Magnesium (1.6-2.3) mg/dL Crossmatch 08/03/17 08/03/17 08/03/17 Range/Units 07:47 07:47 07:50 RBC 3.46 L (4.30-5.90) m/uL Hgb 9.3 L D (13.0-17.5) gm/dL Hct 30.5 L (39.0-53.0) % MCHC 30.7 L (31.0-37.0) g/dL RDW 19.5 H (11.5-15.5) % BUN 5 L (9-20) mg/dL Glucose 191 H (74-99) mg/dL POC Glucose (mg/dL) 147 H (75-99) mg/dL Magnesium 1.2 L (1.6-2.3) mg/dL Crossmatch Microbiology - Last 24 Hours (Table) 07/29/17 21:00 Blood Culture - Preliminary Blood No Growth after 96 hours 07/29/17 20:47 Blood Culture - Preliminary Blood No Growth after 96 hours Assessment and Plan Plan: Assessment: Hypoxemic respiratory failure secondary to alcohol withdrawal syndrome and delirium tremens, copy to by possible aspiration, status post intubation with mechanical ventilation on July 30. Status post extubation on 08/01/2017 History of acute alcohol withdrawal syndrome Acute GI bleed status post 1 unit of PRBC' s Hypoglycemia Aspiration pneumonia History of seizure disorder History of hypertension History of bipolar disorder Plan: Patient is awaiting modified barium swallow to rule out aspiration. Maintain aspiration precautions. Recurrent antibiotic coverage, microbiology results are negative to date. Continue nebulized treatments, increase activity as tolerated. Pulmonary service will sign off and follow the patient on as-needed basis. Thank you for this consultation. I performed a history & physical examination of the patient and discussed their management with my nurse practitioner, Selam Deleon. I reviewed the nurse practitioner's note and agree with the documented findings and plan of care. Lung sounds are positive for scattered rhonchi. The findings and the impression was discussed with the patient. I attest to the documentation by the nurse practitioner. Time with Patient: Less than 30
[2017-08-03] MEDS: IPRATROPIUM-ALBUTEROL 3 ML NEB INHALATION PRN (16:47)
[2017-08-03] MEDS: ONDANSETRON 4 MG/2 ML VIAL IVP PRN (20:11)
[2017-08-03 20:13] LABS: Glucose,Whole Blood 88 mg/dL (75-99)
[2017-08-03] MEDS ORDERED: MAG HYDROX/AL HYDROX/SIMETH 30 ML, HYOSCYAMINE ELIXIR 10 ML, CIMETIDINE HCL 300 MG, LID... PO ONE ×4 (22:57)
[2017-08-03] MEDS: HYDROcodone/APAP 5-325MG 1 EACH TAB PO PRN (23:34)
[2017-08-04 00:56] LABS: Glucose,Whole Blood 77 mg/dL (75-99)
[2017-08-04] MEDS: DEXTROSE 5%-0.9% NACL 1,000 ML IV SCH ×2 (01:04→23:33)
[2017-08-04 03:54] LABS: Glucose,Whole Blood 75 mg/dL (75-99)
[2017-08-04 07:30] LABS: Glucose,Whole Blood 73 mg/dL (75-99)
[2017-08-04 08:07] LABS: Anion Gap 11 mmol/L; Blood Urea Nitrogen 5 mg/dL (9-20); Calcium 8.8 mg/dL (8.4-10.2); Carbon Dioxide 23 mmol/L (22-30); Chloride 106 mmol/L (98-107); Glucose 78 mg/dL (74-99); Magnesium 1.6 mg/dL (1.6-2.3); Phosphorus 4.3 mg/dL (2.5-4.5); Sodium 140 mmol/L (137-145)
[2017-08-04] MEDS: IPRATROPIUM-ALBUTEROL 3 ML NEB INHALATION SCH ×3 (08:10→19:12)
[2017-08-04] MEDS: cefTRIAXone IN SWFI 1,000 MG/10 ML SYRINGE IVP SCH (08:37)
[2017-08-04] MEDS: levETIRAcetam IV 500 MG in SODIUM CHLORIDE 0.9% 100 ML IVPB SCH ×2 (08:37→23:21)
[2017-08-04] MEDS: CLINDAMYCIN 600 MG in DEXTROSE 5% IN WATER 50 ML IVPB SCH ×6 (08:37→23:39)
[2017-08-04] MEDS: MAGNESIUM OXIDE 400 MG TAB PO SCH ×2 (08:47→23:30)
[2017-08-04] MEDS: PANTOPRAZOLE 40 MG/10 ML VIAL IVP SCH (08:47)
[2017-08-04] MEDS: CALCIUM CARB-VIT D 500MG-200UN 1 EACH TAB PO SCH ×3 (08:47→23:32)
[2017-08-04] MEDS: guaiFENesin 600 MG TABLET.ER PO SCH ×2 (08:48→23:21)
[2017-08-04] MEDS: PROPRANOLOL 20 MG TAB PO SCH ×2 (08:48→23:31)
[2017-08-04] MEDS: VALPROIC ACID ORAL SOLN 250 MG/5 ML CUP PO SCH ×2 (08:48→23:32)
[2017-08-04 08:56] LABS: Anisocytosis Slight; HCT 33.4 % (39.0-53.0); HGB 10.9 gm/dL (13.0-17.5); Hypochromasia Slight; MCH 27.9 pg (25.0-35.0); MCHC 32.6 g/dL (31.0-37.0); MCV 85.6 fL (80.0-100.0); Mean Platelet Volume 8.2; Platelet Count 263 k/uL (150-450); Poikilocytosis Moderate; RDW 19.6 % (11.5-15.5); WBC 9.1 k/uL (3.8-10.6)
[2017-08-04 09:45] LABS: Eosinophils # (M) 0.09 k/uL (0-0.7); Lymphocytes # (M) 1.82 k/uL (1.0-4.8); Neutrophils # (M) 6.19 k/uL (1.3-7.7); Neutrophils % (M) 68 %; Nucleated Red Blood Cells 0 /100 WBC (0-0); Total Cells Counted 100
[2017-08-04 11:21] LABS: Glucose,Whole Blood 66 mg/dL (75-99)
[2017-08-04 11:46] LABS: Glucose,Whole Blood 62 mg/dL (75-99)
[2017-08-04 12:18] LABS: Glucose,Whole Blood 87 mg/dL (75-99)
[2017-08-04 12:18] LABS: Glucose,Whole Blood 68 mg/dL (75-99)
[2017-08-04] MEDS: THIAMINE 100 MG TAB PO SCH (12:41)
--- NOTE | 2017-08-04 14:14 | P.PN ---
Subjective Progress Note Date: 08/04/17 Principal diagnosis: Delirium tremens Patient continues to intentionally cough, his blood sugar was low this morning in the 60s. No shortness of breath or chest pain. Objective - Vital Signs Vital signs: Vital Signs Temp 98.3 F 08/04/17 07:00 Pulse 92 08/04/17 07:00 Resp 20 08/04/17 07:00 BP 151/83 08/04/17 07:00 Pulse Ox 95 08/04/17 07:00 Intake & Output 08/03/17 08/04/17 08/04/17 18:59 06:59 18:59 Output Total 500 Balance -500 Weight 64.2 kg Output: Urine 500 Other: Voiding Method Bedside Commode Bedside Commode Bedside Commode Urinal Urinal Urinal # Voids 3 3 # Bowel Movements 2 ABP, PAP, CO, CI - Last Documented Arterial Blood Pressure 78/69 - Exam Constitutional: No acute distress, conversant, pleasant Eyes: Anicteric sclerae, moist conjunctiva, no lid-lag, PERRLA ENMT: NC/AT,Oropharynx clear, no erythema, exudates Neck:Supple, FROM, no masses, or JVD, No carotid bruits; No thyromegaly Lungs: Equal air entry with scattered rhonchi in the posterior bases more so on the left, Clear to percussion, Normal respiratory effort, no accessory muscle use Cardiovascular: Heart regular in rate and rhythm, No murmurs, gallops, or rubs no peripheral edema Abdominal: Soft Nontender, nom distended, no guarding, no rebound or rigidity, Normoactive bowel sounds No hepatomegaly, No splenomegaly, No palpable mass No abdominal wall hernia noted Skin: Normal temperature, tone, texture, turgor, No induration No subcutaneous nodules, No rash, lesions, No ulcers Extremities:No digital cyanosis No clubbing, Pedal pulses intact and symmetrical Radial pulses intact and symmetrical Normal gait and station, No calf tenderness Psychiatric: Oriented only to self pretty confused, Appropriate affect Intact judgement Neuro: Muscles Strength 5/5 in all 4 extremities, Sensation to light touch grossly present throughout, Cranial nerves II-XII grossly intact. No focal sensory deficits - Labs CBC & Chem 7: 08/04/17 06:50 08/04/17 06:50 Labs: Abnormal Lab Results - Last 24 Hours (Table) 08/04/17 08/04/17 08/04/17 Range/Units 06:50 06:50 07:18 RBC 3.90 L (4.30-5.90) m/uL Hgb 10.9 L (13.0-17.5) gm/dL Hct 33.4 L (39.0-53.0) % RDW 19.6 H (11.5-15.5) % BUN 5 L (9-20) mg/dL POC Glucose (mg/dL) 73 L (75-99) mg/dL 08/04/17 08/04/17 08/04/17 Range/Units 11:16 11:30 11:47 RBC (4.30-5.90) m/uL Hgb (13.0-17.5) gm/dL Hct (39.0-53.0) % RDW (11.5-15.5) % BUN (9-20) mg/dL POC Glucose (mg/dL) 66 L 62 L 68 L (75-99) mg/dL Microbiology - Last 24 Hours (Table) 07/29/17 21:00 Blood Culture - Preliminary Blood No Growth after 120 hours 07/29/17 20:47 Blood Culture - Preliminary Blood No Growth after 120 hours Assessment and Plan Plan: (1) Metabolic encephalopathy/delirium tremens * Metabolic encephalopathy is secondary to alcohol withdrawal superimposed on multiple electrolyte abnormalities/intermittent hypoglycemia * Continue with Ativan when necessary with symptom triggered CIWA protocol (2) Hypomagnesemia * Continue with magnesium replacement protocol (3) Hypoglycemia * Continued D5 W at 50 mL an hour * Continue monitor blood sugars * C-peptide and proinsulin ordered * Encouraged to eat and drink (4) Aspiration pneumonia/acute respiratory failure with hypoxia * Sputum cultures showed moderate of gram-positive cocci * Chest x-ray revealing bibasilar infiltrates left greater than right * continue patient on IV clindamycin and Rocephin * Improving * Pulmonary following, status post mechanical ventilation, extubated on 08/03 (5) Acute blood loss anemia/Upper GI bleeding * Hemoglobin up to 9.4 after 2 units of packed RBCs * EGD showing ulcers and erosions in the distal esophagus consistent with grade D reflux esophagitis, also status post balloon dilatation of distal esophageal stricture * Continue with PPI therapy,
[2017-08-04] MEDS: IPRATROPIUM-ALBUTEROL 3 ML NEB INHALATION PRN (15:23)
[2017-08-04 17:15] LABS: Glucose,Whole Blood 104 mg/dL (75-99)
[2017-08-04 20:04] LABS: Glucose,Whole Blood 73 mg/dL (75-99)
[2017-08-04] MEDS: PANTOPRAZOLE 40 MG TABLET PO SCH (23:31)
[2017-08-05 01:09] LABS: Glucose,Whole Blood 78 mg/dL (75-99)
[2017-08-05] MEDS: IPRATROPIUM-ALBUTEROL 3 ML NEB INHALATION PRN (01:26)
[2017-08-05 04:07] LABS: Glucose,Whole Blood 70 mg/dL (75-99)
[2017-08-05] MEDS: HYDROcodone/APAP 5-325MG 1 EACH TAB PO PRN ×2 (04:07→21:30)
[2017-08-05 07:16] LABS: Glucose,Whole Blood 103 mg/dL (75-99)
[2017-08-05] MEDS: IPRATROPIUM-ALBUTEROL 3 ML NEB INHALATION SCH ×3 (08:40→20:24)
[2017-08-05] MEDS: VALPROIC ACID ORAL SOLN 250 MG/5 ML CUP PO SCH ×2 (09:10→21:35)
[2017-08-05] MEDS: levETIRAcetam IV 500 MG in SODIUM CHLORIDE 0.9% 100 ML IVPB SCH (09:10)
[2017-08-05] MEDS: cefTRIAXone IN SWFI 1,000 MG/10 ML SYRINGE IVP SCH (09:10)
[2017-08-05] MEDS: CLINDAMYCIN 600 MG in DEXTROSE 5% IN WATER 50 ML IVPB SCH ×4 (09:11→16:34)
[2017-08-05] MEDS: CALCIUM CARB-VIT D 500MG-200UN 1 EACH TAB PO SCH ×3 (09:15→21:35)
[2017-08-05] MEDS: PANTOPRAZOLE 40 MG TABLET PO SCH ×2 (09:16→21:35)
[2017-08-05] MEDS: THIAMINE 100 MG TAB PO SCH (09:16)
[2017-08-05] MEDS: MAGNESIUM OXIDE 400 MG TAB PO SCH ×2 (09:16→21:34)
[2017-08-05] MEDS: PROPRANOLOL 20 MG TAB PO SCH ×2 (09:17→21:35)
[2017-08-05] MEDS: guaiFENesin 600 MG TABLET.ER PO SCH ×2 (09:23→21:32)
[2017-08-05 11:23] VITALS: BMI 23.3
--- NOTE | 2017-08-05 11:25 | P.DS ---
Providers Date of admission: 07/26/17 18:39 Expected date of discharge: 08/05/17 Attending physician: Consuelo Edouard MD Consults: 07/29/17 19:51 Consult Physician Stat Consulting Provider: Shorty Sevilla Consult Reason/Comments: software engineer web services Do you want consulting provider notified?: Yes Primary care physician: [facility] Course: 47-year-old male that was transferred here from [facility] with concerns for GI bleed after presented with reports of coffee-ground emesis and black colored stools on presentation his hemoglobin was 7.8 and got as low as 6.9. Patient also has history of seizure disorder, liver cirrhosis, and chronic thrombocytopenia due to his alcoholism. Patient was transfused 2 unit of packed red blood cells throughout the hospitalization. His hemoglobin came up appropriately. He had an EGD July 30 that showed severe reflux esophagitis grade 4, antral gastritis with multiple gastric erosions and distal esophageal stricture that was dilated during the procedure. Patient was treated with PPI for the EGD findings/peptic ulcer disease. Patient was noted to have acute confusion sec to metabolic encephalopathy likely from alcohol withdrawal, multiple electrolyte abnormalities as well as hypo-glycemia. His head CT scan was unremarkable. Due to severe delirium tremens symptoms patient was eventually intubated for airway protection and acute hypoxic respiratory failure. He was subsequently found to have aspiration pneumonia. Sputum cultures showed moderate of gram-positive cocci and his blood cultures were negative. He was treated with antibiotics including clindamycin and Rocephin. Chest x-ray showed bibasilar infiltrates left greater than right. He was seen and followed by pulmonary service who agreed with the management. His blood sugars have been on the low side throughout the hospitalization, he was encouraged to eat multiple times, given multiple boluses of D50 and was actually on D10 drip. During the ICU stay an OG was placed the patient was started on high protein tube feeds. When he was extubated he underwent a swallow evaluation and he passed that and was cleared for swallowing. Was started on regular diet subsequently. Even after extubation he continued to have episodes of confusion, he was treated according to the alcohol withdrawal protocol with Ativan. Patient is currently eating and drinking, he denied any intention to go back to drinking. He will be discharged home in a stable condition. He was instructed to follow-up with his primary care physician sometime early next week. He was told to pick up attendant his prescription from the pharmacy. Discharge diagnoses: Metabolic encephalopathy/delirium tremens Hypomagnesemia Hypoglycemia likely secondary to depleted glycogen stores/alcoholic liver cirrhosis combined with decreased by mouth intake, C-peptide and proinsulin within normal limits. Aspiration pneumonia/acute respiratory failure with hypoxia resolved Acute blood loss anemia/Upper GI bleeding Time for discharge 35 minutes. Patient Condition at Discharge: Serious Plan - Discharge Summary Discharge Rx Participant: No New Discharge Prescriptions: No Action Propranolol HCl 20 mg PO BID Folic Acid 1 mg PO DAILY Thiamine [Vitamin B-1] 100 mg PO DAILY@1200 #30 tab Magnesium Chloride [Slow-Mag] 128 mg PO BID #120 tablet.er Multivitamins, Thera [Multivitamin (formulary)] 1 tab PO DAILY@1200 Valproic Acid Oral Soln [Depakene Syrup] 250 mg PO BID Sucralfate [Carafate] 1 gm PO QID Sertraline HCl [Zoloft] 25 mg PO DAILY Ondansetron Odt [Zofran Odt] 4 mg PO Q8HR levETIRAcetam 500 mg PO BID Discharge Medication List Propranolol HCl 20 mg PO BID 06/30/15 [History] Folic Acid 1 mg PO DAILY 09/12/15 [History] Magnesium Chloride [Slow-Mag] 128 mg PO BID #120 tablet.er 01/05/16 [Rx] Thiamine [Vitamin B-1] 100 mg PO DAILY@1200 #30 tab 01/05/16 [Rx] Multivitamins, Thera [Multivitamin (formulary)] 1 tab PO DAILY@1200 07/10/16 [ History] Ondansetron Odt [Zofran Odt] 4 mg PO Q8HR 07/26/17 [History] Sertraline HCl [Zoloft] 25 mg PO DAILY 07/26/17 [History] Sucralfate [Carafate] 1 gm PO QID 07/26/17 [History] Valproic Acid Oral Soln [Depakene Syrup] 250 mg PO BID 07/26/17 [History] levETIRAcetam 500 mg PO BID 07/26/17 [History] Follow up Appointment(s)/Referral(s): Wicho Perez MD [Primary Care Provider] - 1-2 days Vanna Albarado MD [STAFF PHYSICIAN] - 09/14/17 2:15 pm
[2017-08-05 14:12] LABS: Glucose,Whole Blood 68 mg/dL (75-99)
[2017-08-05 14:30] LABS: Glucose,Whole Blood 67 mg/dL (75-99)
--- NOTE | 2017-08-05 14:55 | P.PN ---
Subjective Progress Note Date: 08/05/17 Principal diagnosis: Delirium tremens While patient was in process for discharge, his sister was totally against it because he is still confused/more confused than normal and her parents are to old and sick to take care of him at home. Objective - Vital Signs Vital signs: Vital Signs Temp 98.3 F 08/05/17 07:00 Pulse 92 08/05/17 13:15 Resp 14 08/05/17 13:15 BP 154/79 08/05/17 13:15 Pulse Ox 96 08/05/17 13:15 Intake & Output 08/04/17 08/05/17 08/05/17 18:59 06:59 18:59 Intake Total 400 Balance 400 Weight 65.5 kg 65.5 kg Intake: Oral 400 Other: Voiding Method Bedside Commode Toilet Toilet Urinal # Voids 5 2 # Bowel Movements 1 ABP, PAP, CO, CI - Last Documented Arterial Blood Pressure 78/69 - Exam Constitutional: No acute distress, conversant, pleasant Eyes: Anicteric sclerae, moist conjunctiva, no lid-lag, PERRLA ENMT: NC/AT,Oropharynx clear, no erythema, exudates Neck:Supple, FROM, no masses, or JVD, No carotid bruits; No thyromegaly Lungs: Equal air entry with scattered rhonchi in the posterior bases more so on the left, Clear to percussion, Normal respiratory effort, no accessory muscle use Cardiovascular: Heart regular in rate and rhythm, No murmurs, gallops, or rubs no peripheral edema Abdominal: Soft Nontender, nom distended, no guarding, no rebound or rigidity, Normoactive bowel sounds No hepatomegaly, No splenomegaly, No palpable mass No abdominal wall hernia noted Skin: Normal temperature, tone, texture, turgor, No induration No subcutaneous nodules, No rash, lesions, No ulcers Extremities:No digital cyanosis No clubbing, Pedal pulses intact and symmetrical Radial pulses intact and symmetrical Normal gait and station, No calf tenderness Psychiatric: Oriented only to self pretty confused, Appropriate affect Intact judgement Neuro: Muscles Strength 5/5 in all 4 extremities, Sensation to light touch grossly present throughout, Cranial nerves II-XII grossly intact. No focal sensory deficits - Labs CBC & Chem 7: 08/04/17 06:50 08/04/17 06:50 Labs: Abnormal Lab Results - Last 24 Hours (Table) 08/04/17 08/04/17 08/05/17 Range/Units 17:12 20:02 04:05 POC Glucose (mg/dL) 104 H 73 L 70 L (75-99) mg/dL 08/05/17 08/05/17 08/05/17 Range/Units 07:10 14:11 14:29 POC Glucose (mg/dL) 103 H 68 L 67 L (75-99) mg/dL Microbiology - Last 24 Hours (Table) 07/29/17 21:00 Blood Culture - Final Blood No Growth after 144 hours 07/29/17 20:47 Blood Culture - Final Blood No Growth after 144 hours Assessment and Plan Plan: (1) Metabolic encephalopathy/delirium tremens * Metabolic encephalopathy is secondary to alcohol withdrawal superimposed on multiple electrolyte abnormalities/intermittent hypoglycemia * Continue with Ativan when necessary with symptom triggered CIWA protocol (2) Alcoholic dementia * According to the sister patient has been having intermittent episodes of confusion and forgetfulness for the last several years * Consult a social media director regarding placement in a rehab facility versus assisted living setting as his living conditions according to her sister will not accommodate him anymore. * Consult neurology (3) Hypoglycemia * Continued D5 W at 50 mL an hour * Continue monitor blood sugars * C-peptide and proinsulin WNL * Encouraged to eat and drink (4) Aspiration pneumonia/acute respiratory failure with hypoxia * Sputum cultures showed moderate of gram-positive cocci * Improving * continue patient on IV clindamycin and Rocephin * Improving * Pulmonary following, status post mechanical ventilation, extubated on 08/03 (5) Acute blood loss anemia/Upper GI bleeding * Hemoglobin up to 9.4 after 2 units of packed RBCs * Repeat cbc in am * EGD showing ulcers and erosions in the distal esophagus consistent with grade D reflux esophagitis, also status post balloon dilatation of distal esophageal stricture * Continue with PPI therapy,
[2017-08-05] MEDS: DEXTROSE 5%-0.9% NACL 1,000 ML IV SCH (16:34)
[2017-08-05 16:42] LABS: Glucose,Whole Blood 79 mg/dL (75-99)
--- NOTE | 2017-08-05 17:47 | P.CONS ---
History of Present Illness - Reason for Consult Consult date: 08/05/17 Altered mental status - Chief Complaint Mental status - History of Present Illness This 47 year old male being evaluated by the neurology service for altered mental status. He has been a transfer here from [facility] since July 26. There were concerns for a GI bleed. 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 He did receive transfusions of packed blood cells throughout his hospitalization. He had an EGD that showed severe esophagitis and gastritis. He also has a significant history of alcoholic dementia. He lives at home with his elderly parents. There is some concern that if he were discharged they would not be able to take care of him. He was set to be discharged when his sister asked that he be evaluated because of some difference in his mental status. Staff reports that his mental status is unchanged from his admission. There has been no seizure activity since his admission. There have been no focal neurological deficits reported. At the time of my exam he is laying down resting comfortably in bed. Review of Systems All systems: negative Constitutional: Reports as per HPI Past Medical History Past Medical History: GERD/Reflux, Hypertension, Liver Disease, Memory Impairment, Renal Disease, Seizure Disorder Additional Past Medical History / Comment(s): Alcoholism, alcoholic pancreatitis , alcoholic seizures and seizures as a child, as esophageal stricture and reflux esophagitis/erosions, CRUSH ALL PILLS, alcoholic dementia, thrombocytopenia, Cdiff colitis 2015, hypoglycemia, sinus problems. History of Any Multi-Drug Resistant Organisms: C-DIFF Year Discovered:: 07/02/2015 MDRO Source:: stool Past Surgical History: Adenoidectomy, Tonsillectomy Additional Past Surgical History / Comment(s): EGDs Past Anesthesia/Blood Transfusion Reactions: No Reported Reaction Smoking Status: Never smoker - Past Family History Father Family Medical History: Diabetes Mellitus Mother Family Medical History: Diabetes Mellitus, Deep Vein Thrombosis (DVT), Hypertension Sister(s) Family Medical History: Diabetes Mellitus Brother(s) Family Medical History: Diabetes Mellitus Medications and Allergies Home Medications Medication Instructions Recorded Confirmed Type Propranolol HCl 20 mg PO BID 06/30/15 07/26/17 History Folic Acid 1 mg PO DAILY 09/12/15 07/26/17 History Magnesium Chloride [Slow-Mag] 128 mg PO BID #120 tablet.er 01/05/16 07/26/17 Rx Thiamine [Vitamin B-1] 100 mg PO DAILY@1200 #30 tab 01/05/16 07/26/17 Rx Multivitamins, Thera [Multivitamin 1 tab PO DAILY@1200 07/10/16 07/26/17 History (formulary)] Ondansetron Odt [Zofran Odt] 4 mg PO Q8HR 07/26/17 07/26/17 History Sertraline HCl [Zoloft] 25 mg PO DAILY 07/26/17 07/26/17 History Sucralfate [Carafate] 1 gm PO QID 07/26/17 07/26/17 History Valproic Acid Oral Soln [Depakene 250 mg PO BID 07/26/17 07/26/17 History Syrup] levETIRAcetam 500 mg PO BID 07/26/17 07/26/17 History Cefdinir [Omnicef] 300 mg PO Q12HR #10 capsule 08/05/17 Rx Pantoprazole Sodium [Protonix] 40 mg PO BID #60 tablet. 08/05/17 Rx Allergies Allergy/AdvReac Type Severity Reaction Status Date / Time Penicillins Allergy Rash/Hives Verified 07/26/17 17:21 Physical Exam Vitals: Vital Signs Temp Pulse Pulse Pulse Resp BP Pulse Ox 08/05/17 15:00 98.5 F 96 16 130/67 94 L 08/05/17 13:15 92 14 154/79 96 08/05/17 13:00 93 16 155/82 94 L 08/05/17 12:50 92 179/84 96 08/05/17 12:40 92 170/82 94 L 08/05/17 12:35 89 158/79 94 L 08/05/17 12:30 94 164/84 96 08/05/17 08:50 98 08/05/17 08:40 98 18 08/05/17 08:00 108 H 08/05/17 07:00 98.3 F 101 H 16 161/86 94 L 08/05/17 01:36 100 18 08/05/17 01:26 106 H 18 08/05/17 00:00 108 H 18 08/04/17 22:56 98.2 F 108 H 20 138/82 93 L 08/04/17 21:18 104 H 18 08/04/17 19:21 78 08/04/17 19:13 72 Intake and Output 08/05/17 08/05/17 08/05/17 06:59 14:59 22:59 Intake Total 1400 Balance 1400 Intake: Oral 1400 Other: Voiding Method Toilet Toilet # Voids 2 5 Weight 65.5 kg 65.5 kg - Constitutional General appearance: cooperative, no acute distress, thin - EENT Eyes: no abnormal pupil, EOMI, PERRLA, no ptosis ENT: hearing grossly normal - Neck Neck: normal ROM, no rigidity - Respiratory Respiratory: negative: prolonged expiration, prolonged inspiration - Cardiovascular Rhythm: regular - Gastrointestinal General gastrointestinal: no distended, tenderness - Neurologic Patient is alert awake and oriented to person and place and only partially to time. Speech and language are normal. There is no facial asymmetry. There is no lateralizing weakness. There is no sensory deficit. There is no pronator drift. No tremors or seizure-like activities are seen. He is a little confused at times. He thought he was in a dorm room. But when redirected he was able to identify that he was at [facility]. Results CBC & Chem 7: 08/04/17 06:50 08/04/17 06:50 Labs: Abnormal Lab Results - Last 24 Hours (Table) 08/04/17 08/05/17 08/05/17 Range/Units 20:02 04:05 07:10 POC Glucose (mg/dL) 73 L 70 L 103 H (75-99) mg/dL 08/05/17 08/05/17 Range/Units 14:11 14:29 POC Glucose (mg/dL) 68 L 67 L (75-99) mg/dL Microbiology - Last 24 Hours (Table) 07/29/17 21:00 Blood Culture - Final Blood No Growth after 144 hours 07/29/17 20:47 Blood Culture - Final Blood No Growth after 144 hours Assessment and Plan (1) Chronic alcoholic intoxication with delirium Current Visit: Yes Status: Chronic Code(s): F10.121 - ALCOHOL ABUSE WITH INTOXICATION DELIRIUM SNOMED Code(s): 870901291 (2) Metabolic encephalopathy Current Visit: Yes Status: Suspected Code(s): G93.41 - METABOLIC ENCEPHALOPATHY SNOMED Code(s): 79322437 (3) Alcohol withdrawal delirium Current Visit: Yes Status: Resolved Code(s): F10.231 - ALCOHOL DEPENDENCE WITH WITHDRAWAL DELIRIUM SNOMED Code(s): 7392902 (4) Seizure disorder, generalized convulsive, intractable Current Visit: No Status: Chronic Code(s): G40.319 - GENERALIZED IDIOPATHIC EPILEPSY, INTRACTABLE, W/O STAT EPI SNOMED Code(s): 18662523 (5) Alcohol dependence Current Visit: No Status: Chronic Code(s): F10.20 - ALCOHOL DEPENDENCE, UNCOMPLICATED SNOMED Code(s): 95339714 (6) H/O ETOH abuse Current Visit: No Status: Chronic Code(s): Z87.898 - PERSONAL HISTORY OF OTHER SPECIFIED CONDITIONS SNOMED Code(s): 383601817 (7) 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 Nursing staff has been taking care of him state his mental status is unchanged. He has no focal neurological deficits. No seizure activity has been seen during his admission. His CT of the head on admission showed no significant abnormalities. I will order an EEG. No further neurological workup is needed. Any unforeseen abnormalities on his EEG he would be cleared from a neurological standpoint. Next I have performed a history and physical on the above patient. I have reviewed the above note, and agree.
[2017-08-05 20:47] LABS: Glucose,Whole Blood 101 mg/dL (75-99)
[2017-08-05] MEDS: CEFDINIR 300 MG CAP PO SCH (21:34)
[2017-08-05] MEDS: levETIRAcetam 500 MG TAB PO SCH (21:34)
[2017-08-05 23:31] LABS: Glucose,Whole Blood 87 mg/dL (75-99)
[2017-08-06] MEDS: IPRATROPIUM-ALBUTEROL 3 ML NEB INHALATION PRN (01:36)
[2017-08-06 03:19] LABS: Glucose,Whole Blood 72 mg/dL (75-99)
[2017-08-06] MEDS: IPRATROPIUM-ALBUTEROL 3 ML NEB INHALATION SCH ×2 (07:45→13:29)
[2017-08-06] MEDS: CEFDINIR 300 MG CAP PO SCH (07:46)
[2017-08-06] MEDS: guaiFENesin 600 MG TABLET.ER PO SCH (07:47)
[2017-08-06] MEDS: CALCIUM CARB-VIT D 500MG-200UN 1 EACH TAB PO SCH ×2 (07:47→16:45)
[2017-08-06] MEDS: levETIRAcetam 500 MG TAB PO SCH (07:47)
[2017-08-06] MEDS: MAGNESIUM OXIDE 400 MG TAB PO SCH (07:48)
[2017-08-06] MEDS: PROPRANOLOL 20 MG TAB PO SCH (07:49)
[2017-08-06] MEDS: VALPROIC ACID ORAL SOLN 250 MG/5 ML CUP PO SCH (07:49)
[2017-08-06] MEDS: PANTOPRAZOLE 40 MG TABLET PO SCH (07:49)
[2017-08-06 09:30] LABS: Anisocytosis Slight; Basophils % (A) 0 %; Eosinophils # (A) 0.2 k/uL (0-0.7); Eosinophils % (A) 1 %; HGB 9.9 gm/dL (13.0-17.5); Hypochromasia Moderate; Lymphocytes # (A) 2.2 k/uL (1.0-4.8); Lymphocytes % (A) 18 %; MCH 27.2 pg (25.0-35.0); MCHC 31.1 g/dL (31.0-37.0); MCV 87.6 fL (80.0-100.0); Mean Platelet Volume 8.5; Monocytes # (A) 1.2 k/uL (0-1.0); Monocytes % (A) 10 %; Neutrophils # (A) 7.9 k/uL (1.3-7.7); Neutrophils % (A) 66 %; Platelet Count 343 k/uL (150-450); Poikilocytosis Slight; RBC 3.66 m/uL (4.30-5.90); RDW 19.9 % (11.5-15.5)
[2017-08-06 09:36] LABS: ALT 21 U/L (21-72); AST 32 U/L (17-59); Albumin 3.6 g/dL (3.5-5.0); Alkaline Phosphatase 132 U/L (38-126); Anion Gap 14 mmol/L; Blood Urea Nitrogen 5 mg/dL (9-20); Calcium 9.3 mg/dL (8.4-10.2); Carbon Dioxide 22 mmol/L (22-30); Chloride 104 mmol/L (98-107); Glucose 71 mg/dL (74-99); Potassium 4.7 mmol/L (3.5-5.1); Sodium 140 mmol/L (137-145); Total Bilirubin 0.6 mg/dL (0.2-1.3); Total Protein 6.7 g/dL (6.3-8.2)
[2017-08-06 09:42] LABS: Magnesium 1.1 mg/dL (1.6-2.3)
[2017-08-06 10:04] LABS: Glucose,Whole Blood 80 mg/dL (75-99)
--- NOTE | 2017-08-06 10:04 | P.PN ---
Subjective Progress Note Date: 08/06/17 Principal diagnosis: delirium tremens/gi bleed sister was not comfortable with patientgoing home. especially with patient living with her parents. Objective - Vital Signs Vital signs: Vital Signs Temp 97.6 F 08/06/17 07:00 Pulse 96 08/06/17 07:54 Resp 22 08/06/17 07:00 BP 160/90 08/06/17 07:00 Pulse Ox 96 08/06/17 07:00 Intake & Output 08/05/17 08/06/17 08/06/17 18:59 06:59 18:59 Intake Total 1400 1190 Balance 1400 1190 Weight 65.5 kg 64.38 kg Intake: Oral 1400 1190 Other: Voiding Method Toilet Toilet # Voids 5 5 ABP, PAP, CO, CI - Last Documented Arterial Blood Pressure 78/69 - Exam gen:alert and oriented lungs:clear to auscultation heart:s1s2 abdomen:soft and depressible,non tender ext:no edema - Labs CBC & Chem 7: 08/06/17 07:50 08/06/17 07:50 Labs: Abnormal Lab Results - Last 24 Hours (Table) 08/05/17 08/05/17 08/05/17 Range/Units 14:11 14:29 20:32 WBC (3.8-10.6) k/uL RBC (4.30-5.90) m/uL Hgb (13.0-17.5) gm/dL Hct (39.0-53.0) % RDW (11.5-15.5) % Neutrophils # (1.3-7.7) k/uL Monocytes # (0-1.0) k/uL BUN (9-20) mg/dL Glucose (74-99) mg/dL POC Glucose (mg/dL) 68 L 67 L 101 H (75-99) mg/dL Magnesium (1.6-2.3) mg/dL Alkaline Phosphatase (38-126) U/L 08/06/17 08/06/17 08/06/17 Range/Units 03:17 07:50 07:50 WBC 12.0 H (3.8-10.6) k/uL RBC 3.66 L (4.30-5.90) m/uL Hgb 9.9 L (13.0-17.5) gm/dL Hct 32.0 L (39.0-53.0) % RDW 19.9 H (11.5-15.5) % Neutrophils # 7.9 H (1.3-7.7) k/uL Monocytes # 1.2 H (0-1.0) k/uL BUN 5 L (9-20) mg/dL Glucose 71 L (74-99) mg/dL POC Glucose (mg/dL) 72 L (75-99) mg/dL Magnesium 1.1 L (1.6-2.3) mg/dL Alkaline Phosphatase 132 H (38-126) U/L Assessment and Plan (1) Alcoholic dementia Current Visit: Yes Status: Acute Code(s): F10.27 - ALCOHOL DEPENDENCE WITH ALCOHOL-INDUCED PERSISTING DEMENTIA SNOMED Code(s): 170448 (2) Alcohol withdrawal Narrative/Plan: resolved Current Visit: No Status: Acute Code(s): F10.239 - ALCOHOL DEPENDENCE WITH WITHDRAWAL, UNSPECIFIED SNOMED Code(s): 254995111 (3) Acute blood loss anemia Narrative/Plan: monitor hemoglobin no signs of bleeding Current Visit: Yes Status: Acute Code(s): D62 - ACUTE POSTHEMORRHAGIC ANEMIA SNOMED Code(s): 079029712 (4) Pneumonia Narrative/Plan: on omnicef Current Visit: Yes Status: Acute Code(s): J18.9 - PNEUMONIA, UNSPECIFIED ORGANISM SNOMED Code(s): 193452412 (5) Alcohol dependence Current Visit: No Status: Chronic Code(s): F10.20 - ALCOHOL DEPENDENCE, UNCOMPLICATED SNOMED Code(s): 56284570 Plan: awaiting [facility] delinquency prevention social [facility]
[2017-08-06] MEDS: HYDROcodone/APAP 5-325MG 1 EACH TAB PO PRN ×2 (10:49→16:45)
[2017-08-06] MEDS: DEXTROSE 5%-0.9% NACL 1,000 ML IV SCH (13:53)
[2017-08-06] MEDS: THIAMINE 100 MG TAB PO SCH (13:54)
[2017-08-06 15:56] VITALS: BP 115/73; PULSE 94; RESP 18; TEMP 97.2
[2017-08-06 16:07] LABS: Glucose,Whole Blood 66 mg/dL (75-99)
== END 2017-08-06 20:08 | disposition left against medical advice (07) | DRG 380 ==
LOC: EC 17:14 → 6SEL 18:39 → 6ICU 07-27 14:48 → 6SEL 07-27 14:48 → 6ICU 07-27 15:20 → 6SEL 07-27 15:58 → 6ICU 07-29 20:08 → 5MS5E 08-02 10:26
PROVIDERS: ADMIT Internal Medicine; ATTEND Internal Medicine
PROC: 30243N1 Transfusion of Nonautologous Red Blood Cells into Central Vein, Percutaneous Approach (ICD-10-PCS; 2017-07-27)
PROC: 0D738ZZ Dilation of Lower Esophagus, Via Natural or Artificial Opening Endoscopic (ICD-10-PCS; principal; 2017-07-28 13:35)
PROC: 5A1945Z Respiratory Ventilation, 24-96 Consecutive Hours (ICD-10-PCS; 2017-07-29)
PROC: 0BH17EZ Insertion of Endotracheal Airway into Trachea, Via Natural or Artificial Opening (ICD-10-PCS; 2017-07-29)
DX: K22.11 Ulcer of esophagus with bleeding (principal); G93.41 Metabolic encephalopathy; J96.01 Acute respiratory failure with hypoxia; J69.0 Pneumonitis due to inhalation of food and vomit; F10.231 Alcohol dependence with withdrawal delirium; G40.419 Other generalized epilepsy and epileptic syndromes, intractable, without status epilepticus; N17.9 Acute kidney failure, unspecified; D62 Acute posthemorrhagic anemia; E87.0 Hyperosmolality and hypernatremia; F10.27 Alcohol dependence with alcohol-induced persisting dementia; K70.30 Alcoholic cirrhosis of liver without ascites; K70.9 Alcoholic liver disease, unspecified; E83.42 Hypomagnesemia; D69.59 Other secondary thrombocytopenia; E83.51 Hypocalcemia; E86.0 Dehydration; E16.2 Hypoglycemia, unspecified; K22.2 Esophageal obstruction; K21.0 Gastro-esophageal reflux disease with esophagitis; I10 Essential (primary) hypertension; R32 Unspecified urinary incontinence; F32.9 Major depressive disorder, single episode, unspecified; K29.20 Alcoholic gastritis without bleeding; Z78.1 Physical restraint status; Z79.899 Other long term (current) drug therapy; Z88.0 Allergy status to penicillin
CPT/HCPCS: 36415; 43249; 70450; 71045; 74018; 74230; 80048; 80053; 81001; 81003; 82140; 82150; 82310; 82805; 83605; 83690; 83735; 84100; 84132; 84206; 84484; 84681; 85025; 85027; 85610; 85730; 86850; 86900; 86901; 86920; 87040; 87070; 87086; 87205; 90686; 90732; 94002; 94003; 94640; 94770; 96365; 96366; 96368; 96375; 96376; 99285